=== PATIENT | female | born 1975 | race Caucasian/White ===

== ENCOUNTER 2023-07-12 07:09 | Outpatient (OUT) | payer OTHER, SELFPAY ==
[2023-07-12 07:39] LABS: Basophils Percent Auto 0.3 % (0.2-2.0); Eosinophils Percent Auto 0.2 % (0.9-7.0); Hematocrit 41.4 % (36.0-48.0); Hemoglobin 13.8 g/dL (12.0-16.0); Immature Granulocytes Abs Auto 0.02 10^3/uL (0.00-0.03); Immature Granulocytes Pct Auto 0.3 % (0.0-0.5); Lymphocytes Absolute Auto 0.9 10^3/uL (1.2-3.8); Lymphocytes Percent Auto 13.5 % (20.5-60.0); Mean Corpuscular HGB Conc 33.3 g/dL (29.9-35.2); Mean Corpuscular Hemoglobin 30.8 pg (26.7-34.0); Mean Corpuscular Volume 92.4 fL (81.0-99.0); Mean Platelet Volume 10.5 fL (9.5-13.5); Monocytes Absolute Auto 0.2 10^3/uL (0.3-0.8); Monocytes Percent Auto 2.6 % (1.7-12.0); Neutrophils Absolute Auto 5.4 10^3/uL (1.4-6.5); Neutrophils Percent Auto 83.1 % (43.0-75.0); Platelet Count 265 10^3/uL (150-450); Red Blood Count 4.48 10^6/uL (4.20-5.40); Red Cell Distribution Width 12.2 % (11.0-15.0); White Blood Count 6.5 10^3/uL (4.0-11.0)
[2023-07-12 07:51] LABS: Estimated Average Glucose 103 mg/dL; Glycohemoglobin A1C 5.2 % (4.5-6.2)
[2023-07-12 08:38] LABS: Alanine Aminotransferase 59 U/L (14-59); Albumin Globulin Ratio 1.2; Alkaline Phosphatase 64 U/L (46-116); Anion Gap 14.2; Aspartate Amino Transferase 21 U/L (15-37); BUN Creatinine Ratio 20.7; Bilirubin Total 0.4 mg/dL (0.2-1.0); Calcium 8.9 mg/dL (8.5-10.1); Carbon Dioxide 26.9 mmol/L (21.0-32.0); Chloride 98 mmol/L (98-107); Chol HDL Ratio 4.1; Cholesterol 234 mg/dL (<=200); Estimated GFR (African America >60 (>=60); Estimated GFR (Non-African Ame >60 (>=60); Free T3 2.27 pg/mL (2.18-3.98); Globulin 3.4 g/dL; Glucose 124 mg/dL (74-106); HDL Cholesterol 57 mg/dL (40-60); Potassium 4.1 mmol/L (3.5-5.1); Sodium 135 mmol/L (136-145); Thyroid Stimulating Hormone 0.597 uIU/mL (0.358-3.740); Total Protein 7.4 g/dL (6.4-8.2); Triglycerides 64 mg/dL (<=150); VLDL CHOLESTEROL 12.8 mg/dL
[2023-07-13 12:07] LABS: Insulin 24.8 uIU/mL (2.6-24.9)
== END 2023-07-12 07:10 | disposition home or self-care (01) ==
LOC: LAB 07:15
PROVIDERS: PCP Family Medicine; Visit Provider Family Medicine
DX: Z00.00 Encounter for general adult medical examination without abnormal findings (principal); R73.09 Other abnormal glucose; E78.5 Hyperlipidemia, unspecified
CPT/HCPCS: 36415; 80053; 80061; 83036; 83525; 84436; 84443; 84481; 85025

== ENCOUNTER 2024-06-09 17:29 | Outpatient (OUT) | payer OTHER, SELFPAY ==
--- NOTE | 2024-06-09 | XR_ITS ---
The [address] [address] Patient Name: JOSÉ ZHAO MRN: [id number] date: 1975 Sex: F Assigned Patient Location: [facility] Current Patient Location: Accession/Order Number: [id number] Exam Date: 06/09/2024 17:40 Report Date: 06/10/2024 08:24 At the request of: CHIARA YUN Procedure: XR hip LT 2V w/ pelvis PROCEDURE: XR hip LT 2V w/ pelvis COMPARISON: None. HISTORY: M25.559, HIP PAIN FINDINGS: BONES:No acute fracture or dislocation. Mild bilateral hip osteoarthritis with marginal osteophyte formation SOFT TISSUES:Negative. No visible soft tissue swelling. EFFUSION:None visible. OTHER: Vascular coils left medial abdomen XR/XR hip LT 2V w/ pelvis IMPRESSION: Mild bilateral hip osteoarthritis Electronically authenticated by: LADONNA WATERMAN Date: 06/10/2024 08:24
--- OUTSIDE RECORDS SUMMARY | 2024-06-09 17:33 | XMS_ITS | CCD ---
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 Name Role Phone Chiara Duque MD Primary Care Provider [phone] CHIARA DUQUE Primary Care Unavailable BIANCA GUIDRY Attending Unavailable JAMA, DR GUADARRAMA Admitting Unavailable JAMA, DR GUADARRAMA Attending Unavailable ASHANTIY, DR GUADARRAMA Primary Care Unavailable HOY, DR GUADARRAMA Admitting Unavailable HOY, DR GUADARRAMA Attending Unavailable JAMA, DR GUADARRAMA Primary Care Unavailable JAMA, DR GUADARRAMA Admitting Unavailable JAMA, DR GUADARRAMA Attending Unavailable JAMA, DR GUADARRAMA Primary Care Unavailable HOY, DR GUADARRAMA Consulting Unavailable GENOVEVA WINTERS Attending Unavailable SARA DUQUELAS Sheyla Referring Unavailable Chiara Duque MD Primary Care Provider [phone] CHIARA DUQUE Referring Unavailable HOY, CHIARA M Primary Care Unavailable ZACKARY ELIZABETH Attending Unavailable ZACKARY ELIZABETH Referring Unavailable HOY, CHIARA M Primary Care Unavailable ZACKARY ELIZABETH Attending Unavailable ZACKARY ELIZABETH Referring Unavailable HOY, CHIARA M Primary Care Unavailable DARBY MACIEL Referring Unavailable HOY, CHIARA M Primary Care Unavailable ZACKARY ELIZABETH Attending Unavailable GLENN, ZACKARY M Referring Unavailable HOY, CHIARA M Primary Care Unavailable ZACKARY ELIZABETH Attending Unavailable ZACKARY ELIZABETH Referring Unavailable HOY, CHIARA M Primary Care Unavailable DARBY MACIEL S Referring Unavailable HOY, CHIARA M Primary Care Unavailable Medications Current Medications Medication Drug Class(es) Dates Sig (Normalized) Sig (Original) acetaminophen 325 mg oral tablet (1 source) Start: 07-05-2022 take 2 tablets by mouth every six hours as needed for pain acetaminophen (TYLENOL) 325 MG tablet Take 2 tablets by mouth every 6 hours as needed for Pain 40 tablet 0 07/05/2022 Active cyclobenzaprine hydrochloride 10 mg oral tablet (1 source) Muscle Relaxant Start: 07-05-2022 End: 07-15-2022 take 1 tablet by mouth three times daily as needed for muscle spasms cyclobenzaprine (FLEXERIL) 10 MG tablet Take 1 tablet by mouth 3 times daily as needed for Muscle spasms 21 tablet 0 07/05/2022 07/15/2022 Active diclofenac sodium 75 mg / miSOPROStol 0.2 mg delayed release oral tablet (1 source) Nonsteroidal Anti-inflammatory Drug, Prostaglandin E1 Analog take 1 tablet by mouth twice daily diclofenac-Misoprost ol (ARTHROTEC 75) 75-0.2 MG per tablet Take 1 tablet by mouth 2 times daily 0 Active escitalopram 10 mg oral tablet (1 source) Serotonin Reuptake Inhibitor take 2 tablets by mouth in the morning escitalopram (Lexapro) 10 MG tablet Take 20 mg by mouth in the morning. 0 Active Hyoscyamine (1 source) Hyoscyamine Sulf ate (HYOSCYAMINE PO) Take by mouth daily 0 Active ibuprofen 800 mg oral tablet (1 source) Nonsteroidal Anti-inflammatory Drug Start: 07-05-2022 take 1 tablet by mouth every eight hours as needed for pain ibuprofen (IBU) 800 MG tablet Take 1 tablet by mouth every 8 hours as needed for Pain 21 tablet 0 07/05/2022 Active lisinopril 20 mg oral tablet (1 source) Angiotensin Converting Enzyme Inhibitor take 1 tablet by mouth in the morning lisinopril 20 MG tablet Take 20 mg by mouth in the morning. 0 Active Loratadine (1 source) Loratadine (CLAR ITIN PO) Take by mouth daily 0 Active Multiple Vitamins-Minerals (EMERGEN-C FIVE PO) (1 source) Multiple Vitamins-Minerals (EMERGEN-C FIVE PO) Take by mouth 0 Active Probiotic Product (PROBIOTIC DAILY PO) (1 source) Probiotic Produc t (PROBIOTIC DAILY PO) Take by mouth daily 0 Active Completed/Discontinued Medications Medication Drug Class(es) Dates Sig (Normalized) Sig (Original) iopamidol (ISOVUE-370) 76 % injection 75 mL (1 source) Start: 07-05-2022 End: 07-05-2022 iopamidol (ISOVUE-370) 76 % injection 75 mL Problems Problem Classification Problem Date Documented Da te Episodic/Chronic E Codes: Fall (2 sources) Fall from steps ; Translations: [Fall (on) (from) unspecified stairs and steps, initial encounter] Onset: 07-05-2022 Episodic Nonmalignant breast conditions (2 sources) Solitary cyst of right breast; Translations: [Unspecified lump in the right breast, unspecified quadrant] Onset: 10-02-2023 Episodic Other female genital disorders (1 source) Pelvic congestion syndrome; Translations: [Other specified conditions associated with female genital organs and menstrual cycle] Onset: 09-18-2023 09-18-2023 Episodic Other gastrointestinal disorders (1 source) Irritable bowel syndrome; Translations: [Irritable bowel syndrome without diarrhea] Onset: 09-18-2023 09-18-2023 Chronic Other screening for suspected conditions (not mental disorders or infectious disease) (4 sources) Encounter for screening for malignant neoplasm of vagina; Translations: [Other abnormal and inconclusive findings on diagnostic imaging of breast] Onset: 09-19-2023 Episodic Other upper respiratory infections (1 source) Chronic sinusitis; Translations: [Chronic sinusitis, unspecified] Onset: 09-18-2023 09-18-2023 Chronic Ovarian cyst (2 sources) Cyst of right ovary; Translations: [Unspecified ovarian cyst, right side] Onset: 07-05-2022 Episodic Peripheral and visceral atherosclerosis (1 source) Intermittent 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; Translations: [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 claudication, bilateral legs] Onset: 09-18-2023 09-18-2023 Chronic Superficial injury; contusion (2 sources) Contusion of forehead; Translations: [Contusion of other part of head, initial encounter] Onset: 07-05-2022 Episodic Unclassified (1 source) Annual Exam Onset: 10-27-2023 Results Test Name Value Interpretation Reference Range Facility MAMM DIAGNOSTIC UNILAT RT W CADon 01-13-2024 MAMM DIAGNOSTIC UNILAT RT W CAD MAMM DIAGNOSTIC UNILAT RT W CAD EXAM: MAMM DIAGNOSTIC UNILAT RT W CAD, US BREAST RT LIMITED, 01/13/2024 2:05 PM CLINICAL INDICATIONS: Short-term follow-up right breast masses COMPARISON: Ultrasound and mammogram from 10/14/2023 TECHNIQUE: Supplemental views of the right breast were obtained for diagnostic workup. Digital tomosynthesis images were obtained, with creation of synthetic 2D views. Computer aided detection was utilized. FINDINGS: There are scattered areas of fibroglandular density. A 2 nodular breast masses as seen on prior mammogram appears similar from prior. The more anterior and lateral mass measures roughly 9 mm, similar from prior exam, this is located at a posterior depth roughly 10:00 position. Second nodular mass more posteriorly roughly the level of the nipple posterior depth measures 9 mm as well. Right Breast Ultrasound, Limited FINDINGS: There is a breast cyst measuring 5 x 6 x 3 mm at the 10:00 position 7 cm from the nipple, this corresponds to the more anterior mass. The more posterior mass is not visualized. COMBINED IMPRESSION: Probably benign. Unchanged masses by mammography. The more anterior mass corresponds to a cyst by ultrasound. The more posterior mass is unchanged from prior mammogram however not seen sonographically. Six-month mammogram follow-up recommended BI-RADS: BI-RADS 3 - Probably Benign Recommendation: Repeat diagnostic mammogram in 6 months Patient was given the results before leaving the department. 5 Finalized by Cosmo Rawls MD on 01/13/2024 3:25 PM 3 b MAMM 6 MONTH Normal [facility] US BREAST RT LIMITEDon 01-12 US BREAST RT LIMITED US BREAST RT LIMITED EXAM: MAMM DIAGNOSTIC UNILAT RT W CAD, US BREAST RT LIMITED, 01/13/2024 2:05 PM CLINICAL INDICATIONS: Short-term follow-up right breast masses COMPARISON: Ultrasound and mammogram from 10/14/2023 TECHNIQUE: Supplemental views of the right breast were obtained for diagnostic workup. Digital tomosynthesis images were obtained, with creation of synthetic 2D views. Computer aided detection was utilized. FINDINGS: There are scattered areas of fibroglandular density. A 2 nodular breast masses as seen on prior mammogram appears similar from prior. The more anterior and lateral mass measures roughly 9 mm, similar from prior exam, this is located at a posterior depth roughly 10:00 position. Second nodular mass more posteriorly roughly the level of the nipple posterior depth measures 9 mm as well. Right Breast Ultrasound, Limited FINDINGS: There is a breast cyst measuring 5 x 6 x 3 mm at the 10:00 position 7 cm from the nipple, this corresponds to the more anterior mass. The more posterior mass is not visualized. COMBINED IMPRESSION: Probably benign. Unchanged masses by mammography. The more anterior mass corresponds to a cyst by ultrasound. The more posterior mass is unchanged from prior mammogram however not seen sonographically. Six-month mammogram follow-up recommended BI-RADS: BI-RADS 3 - Probably Benign Recommendation: Repeat diagnostic mammogram in 6 months Patient was given the results before leaving the department. 5 Finalized by Cosmo Rawls MD on 01/13/2024 3:25 PM 3 b MAMM 6 MONTH Normal [facility] Cytologyon 10-27-2023 Cytology Normal [facility] Comment on above: Result Comment: [facility] [address] [place] [address] Gynecologic Cytology Consultation Patient Name:JOSÉ ZHAO:1975 (Age: 48)Gender:FTaken:4Reported:4Physician(s):ALIRIO MACIEL, C.N.M. ([phone])Copy To: Rec. #:[id number]: #[id number] Final Cytologic Interpretation ThinPrep Pap Test (Cervical): Satisfactory for evaluation. A transformation zone component is present. NEGATIVE FOR INTRAEPITHELIAL LESION OR MALIGNANCY. jja/11/05/2023 Interpretation performed at [facility], [address] [place] [address], License number: [id number]. 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 Normal [facility] Comment on above: Performed By: #### 7 1431-1 #### [facility] ([id number]) [address] [place] [address], FIRST [place]LO[address] [place], [place] [id number] [place] [address] LAB ([id number]) [address] [place] [address], [address] [place] [address] Physician Orderon 10-22-2023 Physician Order [id number] Normal [facility] MAMM DIAGNOSTIC UNILAT RT W CADon 10-14-2023 MAMM DIAGNOSTIC UNILAT RT W CAD MAMM DIAGNOSTIC UNILAT RT W CAD EXAM: MAMM DIAGNOSTIC UNILAT RT W CAD, 10/14/2023 2:35 PM CLINICAL INDICATIONS: Mass of right breast, unspecified quadrant; Abnormality of right breast on screening mammogram, COMPARISON: Recent screening study and additional comparison 2018 and 2021 TECHNIQUE: MLO and cc compression views with MLO projection and Tomosynthesis. Targeted ultrasound of the right breast also performed. FINDINGS: There are scattered areas of fibroglandular density. There are 2 partially circumscribed masses in the right breast reproduced on compression. Both reside within the mid to posterior depth of the right breast. Slightly more anterior focus demonstrates sonographic correlate at the 10:00 position and represents a slightly complex cyst 6 mm in greatest dimension 7 cm from the nipple. The more posterior focus does not have sonographic correlate. IMPRESSION: Probable benign complex cysts. One of the 2 sites does not have a ultrasound correlated and 3 follow-up recommended for further characterization. BI-RADS: BI-RADS 3 - Probably Benign Recommendation: Repeat diagnostic mammogram in 3 months Patient was given the results before leaving the department. 5 Finalized by Gera Ibarra DO on 10/14/2023 3:54 PM 3 b MAMM 3 MONTH Normal [facility] US BREAST RT LIMITEDon 10-14 US BREAST RT LIMITED US BREAST RT LIMITED EXAM: US BREAST RT LIMITED, 10/14/2023 3:13 PM CLINICAL INDICATIONS:Mass of right breast, unspecified quadrant; Abnormality of right breast on screening mammogram. COMPARISON: Recent screening study and additional comparison 2018 and 2021 TECHNIQUE: Multiple real-time dalton-scale images of the right breast were performed. Color Doppler was utilized to assess vascular flow. FINDINGS: There are 2 partially circumscribed masses in the right breast reproduced on compression. Both reside within the mid to posterior depth of the right breast. Slightly more anterior focus demonstrates sonographic correlate at the 10:00 position and represents a complex cyst 6 mm in greatest dimension 7 cm from the nipple. The more posterior focus does not have sonographic correlate. IMPRESSION: Probable benign complex cysts. One of the 2 sites does not have a ultrasound correlated and 3 follow-up recommended for further characterization. 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 Computer aided detection was utilized. FINDINGS: There are scattered areas of fibroglandular density. There are no suspicious calcifications, or areas of architectural distortions. There are 2 small masses in the right breast recommend diagnostic mammographic views and ultrasound. IMPRESSION: Right breast: 2 small masses. Recommend diagnostic mammographic views and ultrasound. Left breast: Negative. BI-RADS: BI-RADS 0 - Incomplete. Needs additional imaging evaluation. Recommendation: Additional imaging required. 2 Finalized by Jackie Holden MD on 09/19/2023 4:03 PM 0A b ADDITIONAL I Normal [facility] CT CERVICAL SPINE WO CONTRAS Ton 07-06-2022 CT CERVICAL SPINE WO CONTRAST EXAMINATION: CT OF THE HEAD WITHOUT CONTRAST; CT OF THE CERVICAL SPINE WITHOUT CONTRAST; CT OF THE CHEST, ABDOMEN, AND PELVIS WITH CONTRAST 07/05/2022 9:28 pm TECHNIQUE: CT of the head was performed without the administration of intravenous contrast. Automated exposure control, iterative reconstruction, and/or weight based adjustment of the mA/kV was utilized to reduce the radiation dose to as low as reasonably achievable.; CT of the cervical spine was performed without the administration of intravenous contrast. Multiplanar reformatted images are provided for review. Automated exposure control, iterative reconstruction, and/or weight based adjustment of the mA/kV was utilized to reduce the radiation dose to as low as reasonably achievable.; CT of the chest, abdomen and pelvis was performed with the administration of intravenous contrast. Multiplanar reformatted images are provided for review. Automated exposure control, iterative reconstruction, and/or weight based adjustment of the mA/kV was utilized to reduce the radiation dose to as low as reasonably achievable. COMPARISON: None. HISTORY: ORDERING SYSTEM PROVIDED HISTORY: fall down steps TECHNOLOGIST PROVIDED HISTORY: fall down steps Decision Support Exception - unselect if not a suspected or confirmed emergency medical condition->Emergenc y Medical Condition (MA) Is the patient ?->No FINDINGS: Head CT: There is no acute infarction, intracranial hemorrhage or intracranial mass lesion. No mass effect, midline shift or extra-axial collection is noted. The brain parenchyma is normal. The cerebellar tonsils are in normal position. The ventricles, sulci, and cisterns are within normal limits in size and configuration. The globes and orbits are within normal limits. The visualized extracranial structures including paranasal sinuses and mastoid air cells are unremarkable. No fracture is identified. Central frontal subcutaneous hematoma. Cervical: BONES/ALIGNMENT: There is no acute fracture or traumatic malalignment. DEGENERATIVE CHANGES: Multilevel disc and facet degenerative disease most pronounced at C4-C5 and C6-C7. At C4-C5, posterior osteophytic ridging and central disc protrusion. SOFT TISSUES: There is no prevertebral soft tissue swelling. CT chest: Lines and tubes: None. Lungs and Airways and Pleura: Central airways are patent. Linear ground-glass densities at the bases, likely suggestive of atelectasis. No lung consolidation. No pleural effusion. No pneumothorax. Lymph nodes: No pathologically enlarged mediastinal, hilar, lower cervical, or chest wall lymph nodes. Cardiovascular and Mediastinum: No acute aortic pathology. Cardiac chamber sizes appear to measure within normal limits on this non ECG gated study. No pericardial effusion. The thyroid gland is unremarkable. The esophagus is unremarkable. Bones/Soft tissues: No fracture. No definite suspicious lytic or blastic foci. CT abdomen and pelvis: Organs: 3.1 cm fibroid is arising from uterus. 6.5 x 5.3 cm relatively dense right adnexal cyst. A status post cholecystectomy. The liver, spleen, adrenal glands, pancreas, kidneys and ureters and pelvic organs including the urinary bladder appear unremarkable. Peritoneum / Retroperitoneum: No free air or free fluid is noted. No pathologically enlarged lymphadenopathy. The vasculature do not demonstrate acute abnormality. Multiple coiling materials are noted along the course left gonadal vein. GI Tract: No distention or wall thickening. Bones and Soft Tissues: No fracture. No concerning lytic or sclerotic lesions are noted. IMPRESSION: Head CT: No acute intracranial abnormality. No evidence for acute intracranial hemorrhage, territorial infarction or intracranial mass lesion. Central frontal subcutaneous hematoma. Cervical CT: No acute abnormality of the cervical spine. No fracture. CT of the chest abdomen and pelvis: No acute traumatic injury within the chest abdomen and pelvis. Linear ground-glass densities at the bases likely suggestive of atelectasis. Fibroid uterus. 6.5 cm relatively dense right adnexal cyst. Differential possibilities include endometrioma and hemorrhagic cyst. For further evaluation pelvic ultrasound examination is recommended. Interpreted by: Uvaldo Reddy MD Signed by: Uvaldo Reddy MD 07/05/22 Final result Normal [facility] CT CHEST ABDOMEN PELVIS W CO NTRASTon 07-06-2022 CT CHEST ABDOMEN PELVIS W CONTRAST EXAMINATION: CT OF THE HEAD WITHOUT CONTRAST; CT OF THE CERVICAL SPINE WITHOUT CONTRAST; CT OF THE CHEST, ABDOMEN, AND PELVIS WITH CONTRAST 07/05/2022 9:28 pm TECHNIQUE: CT of the head was performed without the administration of intravenous contrast. Automated exposure control, iterative reconstruction, and/or weight based adjustment of the mA/kV was utilized to reduce the radiation dose to as low as reasonably achievable.; CT of the cervical spine was performed without the administration of intravenous contrast. Multiplanar reformatted images are provided for review. Automated exposure control, iterative reconstruction, and/or weight based adjustment of the mA/kV was utilized to reduce the radiation dose to as low as reasonably achievable.; CT of the chest, abdomen and pelvis was performed with the administration of intravenous contrast. Multiplanar reformatted images are provided for review. Automated exposure control, iterative reconstruction, and/or weight based adjustment of the mA/kV was utilized to reduce the radiation dose to as low as reasonably achievable. COMPARISON: None. HISTORY: ORDERING SYSTEM PROVIDED HISTORY: fall down steps TECHNOLOGIST PROVIDED HISTORY: fall down steps Decision Support Exception - unselect if not a suspected or confirmed emergency medical condition->Emergenc y Medical Condition (MA) Is the patient ?->No FINDINGS: Head CT: There is no acute infarction, intracranial hemorrhage or intracranial mass lesion. No mass effect, midline shift or extra-axial collection is noted. The brain parenchyma is normal. The cerebellar tonsils are in normal position. The ventricles, sulci, and cisterns are within normal limits in size and configuration. The globes and orbits are within normal limits. The visualized extracranial structures including paranasal sinuses and mastoid air cells are unremarkable. No fracture is identified. Central frontal subcutaneous hematoma. Cervical: BONES/ALIGNMENT: There is no acute fracture or traumatic malalignment. DEGENERATIVE CHANGES: Multilevel disc and facet degenerative disease most pronounced at C4-C5 and C6-C7. At C4-C5, posterior osteophytic ridging and central disc protrusion. SOFT TISSUES: There is no prevertebral soft tissue swelling. CT chest: Lines and tubes: None. Lungs and Airways and Pleura: Central airways are patent. Linear ground-glass densities at the bases, likely suggestive of atelectasis. No lung consolidation. No pleural effusion. No pneumothorax. Lymph nodes: No pathologically enlarged mediastinal, hilar, lower cervical, or chest wall lymph nodes. Cardiovascular and Mediastinum: No acute aortic pathology. Cardiac chamber sizes appear to measure within normal limits on this non ECG gated study. No pericardial effusion. The thyroid gland is unremarkable. The esophagus is unremarkable. Bones/Soft tissues: No fracture. No definite suspicious lytic or blastic foci. CT abdomen and pelvis: Organs: 3.1 cm fibroid is arising from uterus. 6.5 x 5.3 cm relatively dense right adnexal cyst. A status post cholecystectomy. The liver, spleen, adrenal glands, pancreas, kidneys and ureters and pelvic organs including the urinary bladder appear unremarkable. Peritoneum / Retroperitoneum: No free air or free fluid is noted. No pathologically enlarged lymphadenopathy. The vasculature do not demonstrate acute abnormality. Multiple coiling materials are noted along the course left gonadal vein. GI Tract: No distention or wall thickening. Bones and Soft Tissues: No fracture. No concerning lytic or sclerotic lesions are noted. IMPRESSION: Head CT: No acute intracranial abnormality. No evidence for acute intracranial hemorrhage, territorial infarction or intracranial mass lesion. Central frontal subcutaneous hematoma. Cervical CT: No acute abnormality of the cervical spine. No fracture. CT of the chest abdomen and pelvis: No acute traumatic injury within the chest abdomen and pelvis. Linear ground-glass densities at the bases likely suggestive of atelectasis. Fibroid uterus. 6.5 cm relatively dense right adnexal cyst. Differential possibilities include endometrioma and hemorrhagic cyst. For further evaluation pelvic ultrasound examination is recommended. Interpreted by: Uvaldo Reddy MD Signed by: Uvaldo Reddy MD 07/05/22 Final result Normal [facility] CT HEAD WO CONTRASTon 2021 CT HEAD WO CONTRAST EXAMINATION: CT OF THE HEAD WITHOUT CONTRAST; CT OF THE CERVICAL SPINE WITHOUT CONTRAST; CT OF THE CHEST, ABDOMEN, AND PELVIS WITH CONTRAST 07/05/2022 9:28 pm TECHNIQUE: CT of the head was performed without the administration of intravenous contrast. Automated exposure control, iterative reconstruction, and/or weight based adjustment of the mA/kV was utilized to reduce the radiation dose to as low as reasonably achievable.; CT of the cervical spine was performed without the administration of intravenous contrast. Multiplanar reformatted images are provided for review. Automated exposure control, iterative reconstruction, and/or weight based adjustment of the mA/kV was utilized to reduce the radiation dose to as low as reasonably achievable.; CT of the chest, abdomen and pelvis was performed with the administration of intravenous contrast. Multiplanar reformatted images are provided for review. Automated exposure control, iterative reconstruction, and/or weight based adjustment of the mA/kV was utilized to reduce the radiation dose to as low as reasonably achievable. COMPARISON: None. HISTORY: ORDERING SYSTEM PROVIDED HISTORY: fall down steps TECHNOLOGIST PROVIDED HISTORY: fall down steps Decision Support Exception - unselect if not a suspected or confirmed emergency medical condition->Emergenc y Medical Condition ([place]) Is the patient ?->No FINDINGS: Head CT: There is no acute infarction, intracranial hemorrhage or intracranial mass lesion. No mass effect, midline shift or extra-axial collection is noted. The brain parenchyma is normal. The cerebellar tonsils are in normal position. The ventricles, sulci, and cisterns are within normal limits in size and configuration. The globes and orbits are within normal limits. The visualized extracranial structures including paranasal sinuses and mastoid air cells are unremarkable. No fracture is identified. Central frontal subcutaneous hematoma. Cervical: BONES/ALIGNMENT: There is no acute fracture or traumatic malalignment. DEGENERATIVE CHANGES: Multilevel disc and facet degenerative disease most pronounced at C4-C5 and C6-C7. At C4-C5, posterior osteophytic ridging and central disc protrusion. SOFT TISSUES: There is no prevertebral soft tissue swelling. CT chest: Lines and tubes: None. Lungs and Airways and Pleura: Central airways are patent. Linear ground-glass densities at the bases, likely suggestive of atelectasis. No lung consolidation. No pleural effusion. No pneumothorax. Lymph nodes: No pathologically enlarged mediastinal, hilar, lower cervical, or chest wall lymph nodes. Cardiovascular and Mediastinum: No acute aortic pathology. Cardiac chamber sizes appear to measure within normal limits on this non ECG gated study. No pericardial effusion. The thyroid gland is unremarkable. The esophagus is unremarkable. Bones/Soft tissues: No fracture. No definite suspicious lytic or blastic foci. CT abdomen and pelvis: Organs: 3.1 cm fibroid is arising from uterus. 6.5 x 5.3 cm relatively dense right adnexal cyst. A status post cholecystectomy. The liver, spleen, adrenal glands, pancreas, kidneys and ureters and pelvic organs including the urinary bladder appear unremarkable. Peritoneum / Retroperitoneum: No free air or free fluid is noted. No pathologically enlarged lymphadenopathy. The vasculature do not demonstrate acute abnormality. Multiple coiling materials are noted along the course left gonadal vein. GI Tract: No distention or wall thickening. Bones and Soft Tissues: No fracture. No concerning lytic or sclerotic lesions are noted. IMPRESSION: Head CT: No acute intracranial abnormality. No evidence for acute intracranial hemorrhage, territorial infarction or intracranial mass lesion. Central frontal subcutaneous hematoma. Cervical CT: No acute abnormality of the cervical spine. No fracture. CT of the chest abdomen and pelvis: No acute traumatic injury within the chest abdomen and pelvis. Linear ground-glass densities at the bases likely suggestive of atelectasis. Fibroid uterus. 6.5 cm relatively dense right adnexal cyst. Differential possibilities include endometrioma and hemorrhagic cyst. For further evaluation pelvic ultrasound examination is recommended. Interpreted by: Uvaldo Reddy MD Signed by: Uvaldo Reddy MD 07/05/22 Final result Normal [facility] Basic Metabolic Panelon 10-2 Anion gap [Moles/Vol] 11 mmol/L 9 - 17 mmol/L [facility] Calcium [Mass/Vol] 8.9 mg/dL 8.6 - 10. 4 mg/dL [facility] Chloride [Moles/Vol] 107 mmol/L 98 - 10 7 mmol/L [facility] CO2 [Moles/Vol] 24 mmol/L 20 - 31 mmol/L [facility] Creatinine [Mass/Vol] 0.71 mg/dL 0.50 - 0.90 mg/dL [facility] GFR/1.73 sq M.predicted MDRD (S/P/Bld) [Vol rate/Area] - PINF [facility] Comment on above: Effective Jun 10, 2022 These results are not intended for use in patients <18 years of age. eGFR results are calculated without a race factor using the 2020 CKD-EPI equation. Careful clinical correlation is recommended, particularly when comparing to results calculated using previous equations. The CKD-EPI equation is less accurate in patients with extremes of muscle mass, extra-renal metabolism of creatine, excessive creatine ingestion, or following therapy that affects renal tubular secretion. Glucose [Mass/Vol] 117 mg/dL High 70 - 99 mg/dL [facility] Interpretation and review of laboratory results Abnormal [facility] Potassium [Moles/Vol] 4.0 mmol/L 3.7 - 5.3 mmol/L [facility] Sodium [Moles/Vol] 142 mmol/L 135 - 144 mmol/L [facility] Urea nitrogen (BldV) [Mass/Vol] 18 mg/dL 6 - 20 mg/dL [facility] Urea nitrogen/Creatinine (Bld) [Mass ratio] 25 High 9 - 20 [facility] Basic Metabolic Profon 07-05 Anion gap [Moles/Vol] 11 mmol/L Normal 9-17 [facility] Comment on above: Performed By: #### B CLARK, CBC #### [facility] [address] [place] [address] [place] [address] Supervisor C[employer] Meats: Mychal Gomez MD BUN/CRE Ratio 25 High 9-20 [facility] Comment on above: Performed By: #### B CLARK, CBC #### [facility] [address] [place] [address] [place] [address] Supervisor [employer]: Mychal Gomez MD Calcium [Mass/Vol] 8.9 mg/dL Normal 8.6-10.4 [facility] Comment on above: Performed By: #### B CLARK, CBC #### [facility] [address] [place] [address] Supervisor [employer]: Mychal Gomez MD Chloride [Moles/Vol] 107 mmol/L Normal 98-[address] [facility] Comment on above: Performed By: #### B MP, CBC #### [facility] [address] [place] [address] Supervisor [employer]: Mychal Gomez MD CO2 [Moles/Vol] 24 mmol/L Normal 20-31 [facility] Comment on above: Performed By: #### B MP, CBC #### [facility] [address] [place] [address] Supervisor C[employer]: Mychal Gomez MD Creatinine [Mass/Vol] 0.71 mg/dL Normal 0.50-0.90 [facility] Comment on above: Performed By: #### B MP, CBC #### [facility] [address] [place] [address] Supervisor C[employer]ats: Mychal Gomez MD GFR/1.73 sq M.predicted among non-blacks MDRD (S/P/Bld) [Vol rate/Area] mL/min/{1.73_m2} Normal >60 [facility] Comment on above: Result Comment: Effective Jun 10, 2022 These results are not intended for use in patients <18 years of age. eGFR results are calculated without a race factor using the 2020 CKD-EPI equation. Careful clinical correlation is recommended, particularly when comparing to results calculated using previous equations. The CKD-EPI equation is less accurate in patients with extremes of muscle mass, extra-renal metabolism of creatine, excessive creatine ingestion, or following therapy that affects renal tubular secretion. Performed By: #### B CLARK, CBC #### [address] [place] [address] Supervisor [employer]: Mychal Gomez MD Glucose [Mass/Vol] 117 mg/dL High 70-99 [facility] Comment on above: Performed By: #### B CLARK, CBC #### [facility] [address] [place] [address] Supervisor C[employer]ats: Mychal Gomez MD Potassium [Moles/Vol] 4.0 mmol/L Normal 3.7-5.3 [facility] Comment on above: Performed By: #### B CLARK, CBC #### [address] [place] [address] Supervisor C[employer]: Mychal Gomez MD Sodium [Moles/Vol] 142 mmol/L Normal 135-144 [facility] Comment on above: Performed By: #### B MP, CBC #### [address] [place] [address] Supervisor C[employer] Meats: Mychal Gomez MD Urea nitrogen [Mass/Vol] 18 mg/dL Normal 6-20 [facility] Comment on above: Performed By: #### B MP, CBC #### [address] [place] [address] Supervisor C[employer] Meats: Mychal Gomez MD CBCon 07-05-2022 Erythrocyte distribution width (RBC) [Ratio] 12.6 % Normal 11.8-14.4 [facility] Comment on above: Performed By: #### B MP, CBC #### [address] [place] [address] Supervisor C[employer] Me[employer]: Mychal Gmoez MD Hematocrit (Bld) [Volume fraction] 41.5 % Normal 36.3-47.1 [facility] Comment on above: Performed By: #### B MP, CBC #### [address] [place] [address] Supervisor [employer]: Mychal Gomez MD Hemoglobin (Bld) [Mass/Vol] 14.1 g/dL Normal 11.9-15.1 [facility] Comment on above: Performed By: #### B MP, CBC #### [address] [place] [address] Supervisor C[employer]: Mychal Gomez MD MCH (RBC) [Entitic mass] 32.0 pg Normal 25.2-33.5 [facility] Comment on above: Performed By: #### B MP, CBC #### [address] [place] [address] Supervisor Cured Meats: Mychal Gomez MD MCHC (RBC) [Mass/Vol] 34.0 g/dL Normal 28.4-34.8 [facility] Comment on above: Performed By: #### B MP, CBC #### [facility] [address] [place], [place] [id number] Supervisor C[employer] Meats: Mychal Gomez MD MCV (RBC) [Entitic vol] 94.3 fL Normal 82.6-102.9 [facility] Comment on above: Performed By: #### B MP, CBC #### [address] [place] [address] Supervisor C[employer]: Mychal Gomez MD NRBC Automated 0.0 per 100 WBC Normal 0.0 [facility] Comment on above: Performed By: #### B MP, CBC #### [address] [place], [place] [id number] Supervisor C[employer] Meats: Mychal Gomez MD Platelet mean volume (Bld) [Entitic vol] 10.4 fL Normal 8.1-13.5 [facility] Comment on above: Performed By: #### B MP, CBC #### [address] [place], [place] [id number] Supervisor C[employer] Me[employer]: Mychal Gomez MD Platelets (Bld) [#/Vol] 173 10*3/uL Normal 138-453 [facility] Comment on above: Performed By: #### B MP, CBC #### [address] [place] [address] Supervisor C[employer] Meats: Mychal Gomez MD RBC (Bld) [#/Vol] 4.40 10*6/uL Normal 3.95-5.11 [facility] Comment on above: Performed By: #### B MP, CBC #### [address] [place] [address] Supervisor C[employer]: Mychal Gomez MD WBC (Bld) [#/Vol] 5.6 10*3/uL Normal 3.5-11.3 [facility] Comment on above: Performed By: #### B MP, CBC #### [address] [place] [address] Supervisor C[employer] Meats: Mychal Gomez MD Hematocrit (Bld) [Volume fraction] 41.5 % 36.3 - 47.1 % [facility] Hemoglobin (Bld) [Mass/Vol] 14.1 g/dL 11.9 - 15.1 g/dL [facility] MCH (RBC) [Entitic mass] 32.0 pg 25.2 - 33.5 pg [facility] MCHC (RBC) [Mass/Vol] 34.0 g/dL 28.4 - 34.8 g/dL [facility] MCV (RBC) [Entitic vol] 94.3 fL 82.6 - 102.9 fL [facility] NRBC Automated 0.0 0.0 per 100 WBC [facility] Platelet distribution width (Bld) [Ratio] 12.6 % 11.8 - 14.4 % [facility] Platelet mean volume (Bld) [Entitic vol] 10.4 fL 8.1 - 13.5 fL [facility] Platelets (Bld) [#/Vol] 173 10*3/uL [facility] RBC (Bld) [#/Vol] 4.40 10*6/uL 3.95 - 5.1 1 m/uL [facility] WBC (Bld) [#/Vol] 5.6 10*3/uL [facility] CT CERVICAL SPINE WO CONTRAS Ton 07-05-2022 Radiology Study observation (narrative) [facility] Work Phone: CT CHEST ABDOMEN PELVIS W CO NTRAST Additional Contrast? Noneon 07-05-2022 Radiology Study observation (narrative) [facility] Work Phone: CT Head WO Contraston 2021 Radiology Study observation (narrative) [facility] Work Phone: Ethanolon 07-05-2022 Ethanol [Mass/Vol] 233 mg/dL High NINF - 10 mg/dL [facility] Ethanol percent 0.233 % High NINF - 0.010 % [facility] Interpretation and review of laboratory results Abnormal [facility] Ethanol Alcoholon 07-05-2022 Ethanol [Mass/Vol] 233 mg/dL High <10 [facility] Comment on above: Performed By: #### A LCB #### [facility] [address] [place] [address] Supervisor C[employer] Meats: Mychal Gomez MD Ethanol percent 0.233 % High <0.010 [facility] Comment on above: Performed By: #### A LCB #### [facility] [address] [place] [address] Supervisor Cured Meats: Mychal Gomez MD No Panel Informationon 07-[address]: No acute intracranial abnormality. No evidence for acute intracranial hemorrhage, territorial infarction or intracranial mass lesion. Central frontal subcutaneous hematoma. Cervical CT: No acute abnormality of the cervical spine. No fracture. CT of the chest abdomen and pelvis: No acute traumatic injury within the chest abdomen and pelvis. Linear ground-glass densities at the bases likely suggestive of atelectasis. Fibroid uterus. 6.5 cm relatively dense right adnexal cyst. Differential possibilities include endometrioma and hemorrhagic cyst. For further evaluation pelvic ultrasound examination is recommended. [facility] EXAMINATION: CT OF THE HEAD WITHOUT CONTRAST; CT OF THE CERVICAL SPINE WITHOUT CONTRAST; CT OF THE CHEST, ABDOMEN, AND PELVIS WITH CONTRAST 07/05/2022 9:28 pm TECHNIQUE: CT of the head was performed without the administration of intravenous contrast. Automated exposure control, iterative reconstruction, and/or weight based adjustment of the mA/kV was utilized to reduce the radiation dose to as low as reasonably achievable.; CT of the cervical spine was performed without the administration of intravenous contrast. Multiplanar reformatted images are provided for review. Automated exposure control, iterative reconstruction, and/or weight based adjustment of the mA/kV was utilized to reduce the radiation dose to as low as reasonably achievable.; CT of the chest, abdomen and pelvis was performed with the administration of intravenous contrast. Multiplanar reformatted images are provided for review. Automated exposure control, iterative reconstruction, and/or weight based adjustment of the mA/kV was utilized to reduce the radiation dose to as low as reasonably achievable. COMPARISON: None. HISTORY: ORDERING SYSTEM PROVIDED HISTORY: fall down steps TECHNOLOGIST PROVIDED HISTORY: fall down steps Decision Support Exception - unselect if not a suspected or confirmed emergency medical condition->Emergenc y Medical Condition ([place]) Is the patient ?->No FINDINGS: Head CT: There is no acute infarction, intracranial hemorrhage or intracranial mass lesion. No mass effect, midline shift or extra-axial collection is noted. The brain parenchyma is normal. The cerebellar tonsils are in normal position. The ventricles, sulci, and cisterns are within normal limits in size and configuration. The globes and orbits are within normal limits. The visualized extracranial structures including paranasal sinuses and mastoid air cells are unremarkable. No fracture is identified. Central frontal subcutaneous hematoma. Cervical: BONES/ALIGNMENT: There is no acute fracture or traumatic malalignment. DEGENERATIVE CHANGES: Multilevel disc and facet degenerative disease most pronounced at C4-C5 and C6-C7. At C4-C5, posterior osteophytic ridging and central disc protrusion. SOFT TISSUES: There is no prevertebral soft tissue swelling. CT chest: Lines and tubes: None. Lungs and Airways and Pleura: Central airways are patent. Linear ground-glass densities at the bases, likely suggestive of atelectasis. No lung consolidation. No pleural effusion. No pneumothorax. Lymph nodes: No pathologically enlarged mediastinal, hilar, lower cervical, or chest wall lymph nodes. Cardiovascular and Mediastinum: No acute aortic pathology. Cardiac chamber sizes appear to measure within normal limits on this non ECG gated study. No pericardial effusion. The thyroid gland is unremarkable. The esophagus is unremarkable. Bones/Soft tissues: No fracture. No definite suspicious lytic or blastic foci. CT abdomen and pelvis: Organs: 3.1 cm fibroid is arising from uterus. 6.5 x 5.3 cm relatively dense right adnexal cyst. A status post cholecystectomy. The liver, spleen, adrenal glands, pancreas, kidneys and ureters and pelvic organs including the urinary bladder appear unremarkable. Peritoneum / Retroperitoneum: No free air or free fluid is noted. No pathologically enlarged lymphadenopathy. The vasculature do not demonstrate acute abnormality. Multiple coiling materials are noted along the course left gonadal vein. GI Tract: No distention or wall thickening. Bones and Soft Tissues: No fracture. No concerning lytic or sclerotic lesions are noted. [facility] Uvaldo Reddy MD - 07/05/2022 EXAMINATION: CT OF THE HEAD WITHOUT CONTRAST; CT OF THE CERVICAL SPINE WITHOUT CONTRAST; CT OF THE CHEST, ABDOMEN, AND PELVIS WITH CONTRAST 07/05/2022 9:28 pm TECHNIQUE: CT of the head was performed without the administration of intravenous contrast. Automated exposure control, iterative reconstruction, and/or weight based adjustment of the mA/kV was utilized to reduce the radiation dose to as low as reasonably achievable.; CT of the cervical spine was performed without the administration of intravenous contrast. Multiplanar reformatted images are provided for review. Automated exposure control, iterative reconstruction, and/or weight based adjustment of the mA/kV was utilized to reduce the radiation dose to as low as reasonably achievable.; CT of the chest, abdomen and pelvis was performed with the administration of intravenous contrast. Multiplanar reformatted images are provided for review. Automated exposure control, iterative reconstruction, and/or weight based adjustment of the mA/kV was utilized to reduce the radiation dose to as low as reasonably achievable. COMPARISON: None. HISTORY: ORDERING SYSTEM PROVIDED HISTORY: fall down steps TECHNOLOGIST PROVIDED HISTORY: fall down steps Decision Support Exception - unselect if not a suspected or confirmed emergency medical condition->Emergenc y Medical Condition ([place]) Is the patient ?->No FINDINGS: Head CT: There is no acute infarction, intracranial hemorrhage or intracranial mass lesion. No mass effect, midline shift or extra-axial collection is noted. The brain parenchyma is normal. The cerebellar tonsils are in normal position. The ventricles, sulci, and cisterns are within normal limits in size and configuration. The globes and orbits are within normal limits. The visualized extracranial structures including paranasal sinuses and mastoid air cells are unremarkable. No fracture is identified. Central frontal subcutaneous hematoma. Cervical: BONES/ALIGNMENT: There is no acute fracture or traumatic malalignment. DEGENERATIVE CHANGES: Multilevel disc and facet degenerative disease most pronounced at C4-C5 and C6-C7. At C4-C5, posterior osteophytic ridging and central disc protrusion. SOFT TISSUES: There is no prevertebral soft tissue swelling. CT chest: Lines and tubes: None. Lungs and Airways and Pleura: Central airways are patent. Linear ground-glass densities at the bases, likely suggestive of atelectasis. No lung consolidation. No pleural effusion. No pneumothorax. Lymph nodes: No pathologically enlarged mediastinal, hilar, lower cervical, or chest wall lymph nodes. Cardiovascular and Mediastinum: No acute aortic pathology. Cardiac chamber sizes appear to measure within normal limits on this non ECG gated study. No pericardial effusion. The thyroid gland is unremarkable. The esophagus is unremarkable. Bones/Soft tissues: No fracture. No definite suspicious lytic or blastic foci. CT abdomen and pelvis: Organs: 3.1 cm fibroid is arising from uterus. 6.5 x 5.3 cm relatively dense right adnexal cyst. A status post cholecystectomy. The liver, spleen, adrenal glands, pancreas, kidneys and ureters and pelvic organs including the urinary bladder appear unremarkable. Peritoneum / Retroperitoneum: No free air or free fluid is noted. No pathologically enlarged lymphadenopathy. The vasculature do not demonstrate acute abnormality. Multiple coiling materials are noted along the course left gonadal vein. GI Tract: No distention or wall thickening. Bones and Soft Tissues: No fracture. No concerning lytic or sclerotic lesions are noted. IMPRESSION: Head CT: No acute intracranial abnormality. No evidence for acute intracranial hemorrhage, territorial infarction or intracranial mass lesion. Central frontal subcutaneous hematoma. Cervical CT: No acute abnormality of the cervical spine. No fracture. CT of the chest abdomen and pelvis: No acute traumatic injury within the chest abdomen and pelvis. Linear ground-glass densities at the bases likely suggestive of atelectasis. Fibroid uterus. 6.5 cm relatively dense right adnexal cyst. Differential possibilities include endometrioma and hemorrhagic cyst. For further evaluation pelvic ultrasound examination is recommended. [facility] [employer] Work Phone: No Panel InformationOrdered By: Uvaldo Reddy on 07-05-2022 [facility] [employer] Work Phone: CBC AUTO DIFFon 09-15-2021 BASO # 0.0 103/ul Normal 0.0-0.1 [facility] Comment on above: Performed By: #### C BC #### [facility] [address] [place] [id number] Lakshmi Galvez Basophils/100 WBC (Bld) 1.0 % Normal 0.2-2.0 [facility] Comment on above: Performed By: #### C BC #### [facility] [address] [place] [address] Lakshmi Galvez EO # 0.2 103/ul Normal 0.0-0.7 [facility] Comment on above: Performed By: #### C BC #### [facility] [address] [place] [address] Dr. Lakshmi Galvez Eosinophils/100 WBC (Bld) 3.9 % Normal 0.9-7.0 [facility] Comment on above: Performed By: #### C BC #### [facility] [address] [place] [address] Dr. Lakshmi Galvez Erythrocyte distribution width (RBC) [Ratio] 12.4 % Normal 11.0-15.0 [facility] Comment on above: Performed By: #### C BC #### [facility] [address] [place] [address] Dr. Lakshmi Galvez Hematocrit (Bld) [Volume fraction] 41.5 % Normal 36.0-48.0 [facility] Comment on above: Performed By: #### C BC #### [facility] [address] [place] [address] Dr. Lakshmi Galvez Hemoglobin (Bld) [Mass/Vol] 13.9 g/dL Normal 12.0-16.0 [facility] Comment on above: Performed By: #### C BC #### [facility] [address] [place] [address] Dr. Lakshmi Galvez IG # 0.01 10e3/ul Normal 0.00-0.03 [facility] Comment on above: Performed By: #### C BC #### [facility] [address] [place] [address] Dr. Lakshmi Galvez IG % 0.2 % Normal 0.0-0.5 [facility] Comment on above: Performed By: #### C BC #### [facility] [address] [place] [address] Dr. Lakshmi Galvez LYMPH # 1.5 103/ul Normal 1.2-3.8 [facility] Comment on above: Performed By: #### C BC #### [facility] [address] [place] [address] Dr. Lakshmi Galvez Lymphocytes/100 WBC (Bld) 36.6 % Normal 20.5-60.0 [facility] Comment on above: Performed By: #### C BC #### [facility] [address] [place] [address] Dr. Lakshmi Galvez MANUAL DIFF REQ NO Normal [facility] Comment on above: Performed By: #### C BC #### [facility] [address] [place] [address] Dr. Lakshmi Galvez MCH (RBC) [Entitic mass] 31.2 pg Normal 26.7-34.0 [facility] Comment on above: Performed By: #### C BC #### [facility] [address] [place] [address] Dr. Lakshmi Galvez MCHC (RBC) [Mass/Vol] 33.5 g/dL Normal 29.9-35.2 [facility] Comment on above: Performed By: #### C BC #### [facility] [address] [place] [address] Dr. Lakshmi Galvez MCV (RBC) [Entitic vol] 93.0 fL Normal 81.0-99.0 [facility] Comment on above: Performed By: #### C BC #### [facility] [address] [place] [address] Dr. Lakshmi Galvez MONO # 0.4 103/ul Normal 0.3-0.8 [facility] Comment on above: Performed By: #### C BC #### [facility] [address] [place] [address] Dr. Lakshmi Galvez Monocytes/100 WBC (Bld) 9.0 % Normal 1.7-12.0 [facility] Comment on above: Performed By: #### C BC #### [facility] [address] [place] [address] Dr. Lakshmi Galvez NEUT # 2.0 103/ul Normal 1.4-6.5 [facility] Comment on above: Performed By: #### C BC #### [facility] [address] [place] [address] Dr. Lakshmi Galvez Neutrophils/100 WBC (Bld) 49.3 % Normal 43.0-75.0 [facility] Comment on above: Performed By: #### C BC #### [facility] [address] [address] [address] Lakshmi Galvez Platelet mean volume (Bld) [Entitic vol] 10.5 fL Normal 9.5-13.5 [facility] Comment on above: Performed By: #### C BC #### [facility] [address] [address] [address] Lakshmi Galvez PLT 202 103/ul Normal 150-450 [facility] Comment on above: Performed By: #### C BC #### [facility] [address] [place] [address] Dr. Lakshmi Galvez RBC 4.46 106/ul Normal 4.20-5.40 [facility] Comment on above: Performed By: #### C BC #### [facility] [address] [place] [address] Dr. Lakshmi Galvez WBC 4.1 103/ul Normal 4.0-11.0 [facility] Comment on above: Performed By: #### C BC #### [facility] [address] [place] [address] Dr. Lakshmi Gavlez FREE THYROXINE INDEX T7on FTI 2.28 Normal [facility] Comment on above: Performed By: #### L IPID, CMP, T7, TSH #### [facility] [address] [place] [address] Dr. Lakshmi Galvez T3U 35.0 % Normal 23.5-40.5 [facility] Comment on above: Performed By: #### L IPID, CMP, T7, TSH #### [facility] [address] [address] [address] Lakshmi Galvez T4 [Mass/Vol] 6.50 ug/dL Normal 5.53-11.00 [facility] Comment on above: Performed By: #### L IPID, CMP, T7, TSH #### [facility] [address] [address] [address] Lakshmi Galvez GLYCOHEMOGLOBIN A1Con 2021 ADA RECOMMENDATION ADA THERAPEUTIC TARGET 6.0 - 7.0 ACTION SUGGESTED > 7.0 Normal [facility] Comment on above: Performed By: #### A 1C #### [facility] [address] [place], [place] [address] Dr. Lakshmi Galvez Glucose [Mass/Vol] 111 mg/dL Normal [facility] Comment on above: Performed By: #### A 1C #### [facility] [id number] Lakshmi Galvez HbA1c (Bld) [Mass fraction] 5.5 % Normal <=6.0 [facility] Comment on above: Performed By: #### A 1C #### [facility] [address] [address] [address] Lakshmi Galvez LIPID PROFILEon 09-15-2021 CHOL-HDL RATIO NORM SEE BELOW Normal [facility] Comment on above: Result Comment: 3.3 - 4.4 LOW RISK 4.4 - 7.1 AVERAGE RISK 7.1 - 11.0 MODERATE RISK >11.0 HIGH RISK Performed By: #### L IPID, CMP, T7, TSH #### [facility] [address] [place], [place] [address] Dr. Lakshmi Galvez Cholesterol [Mass/Vol] 237 mg/dL Critically high <=200 [facility] Comment on above: Performed By: #### L IPID, CMP, T7, TSH #### [facility] [address] [place], [place] [address] Dr. Lakshmi Galvez Cholesterol in HDL [Mass/Vol] 50 mg/dL Normal [facility] Comment on above: Performed By: #### L IPID, CMP, T7, TSH #### [facility] [address] [place], [place] [address] Dr. Lakshmi Galvez Cholesterol in LDL [Mass/Vol] 144.8 mg/dL Normal [facility] Comment on above: Performed By: #### L IPID, CMP, T7, TSH #### [facility] [address] [place], [place] [address] Dr. Lakshmi Galvez Cholesterol.total/Chol esterol in HDL [Mass ratio] 4.7 {ratio} Normal [facility] Comment on above: Performed By: #### L IPID, CMP, T7, TSH #### [facility] [address] [address] [address] Lakshmi Galvez HDL NORMAL > or = 60 mg/dl - LOW CARDIOVASCULAR RISK <40 mg/dl - HIGH CARDIOVASCULAR RISK Normal [facility] Comment on above: Performed By: #### L IPID, CMP, T7, TSH #### [facility] [address] [address] [address] Lakshmi Galvez LDL CALC NORMAL SEE BELOW Normal [facility] Comment on above: Result Comment: <100 mg/dl OPTIMAL 100 - 129 mg/dl NEAR OR ABOVE OPTIMAL 130 - 159 mg/dl BORDERLINE HIGH 160 - 189 mg/dl HIGH >190 mg/dl VERY HIGH Performed By: #### L IPID, CMP, T7, TSH #### [facility] [address] [address] [address] Lakshmi Galvez Triglyceride [Mass/Vol] 211 mg/dL Critically high <=150 [facility] Comment on above: Performed By: #### L IPID, CMP, T7, TSH #### [facility] [address] [address] [address] Lakshmi Galvez VLDL CALC 42.2 mg/dL Normal [facility] Comment on above: Performed By: #### L IPID, CMP, T7, TSH #### [facility] [address] [address] [address] Lakshmi Galvez PROF 14(COMP METB)on 022 Albumin [Mass/Vol] 3.9 g/dL Normal 3.5-5.0 [facility] Comment on above: Performed By: #### L IPID, CMP, T7, TSH #### [facility] [address] [address] [address] Lakshmi Galvez Albumin/Globulin [Mass ratio] 1.1 {ratio} Normal [facility] Comment on above: Performed By: #### L IPID, CMP, T7, TSH #### [facility] [address] [address] [address] Lakshmi Galvez ALP [Catalytic activity/Vol] 55 U/L Normal 38-126 [facility] Comment on above: Performed By: #### L IPID, CMP, T7, TSH #### [facility] [address] [place] [address] Dr. Lakshmi Galvez ALT [Catalytic activity/Vol] 53 U/L Critically high 9-52 [facility] Comment on above: Performed By: #### L IPID, CMP, T7, TSH #### [facility] [address] [place] [address] Dr. Lakshmi Galvez Anion gap [Moles/Vol] 13.0 mmol/L Normal [facility] Comment on above: Performed By: #### L IPID, CMP, T7, TSH #### [facility] [address] [place] [address] Dr. Lakshmi Galvez AST [Catalytic activity/Vol] 23 U/L Normal 14-36 [facility] Comment on above: Performed By: #### L IPID, CMP, T7, TSH #### [facility] [address] [place] [address] Dr. Lakshmi Galvez Bilirubin [Mass/Vol] 0.5 mg/dL Normal 0.2-1.3 [facility] Comment on above: Performed By: #### L IPID, CMP, T7, TSH #### [facility] [address] [place] [address] Dr. Lakshmi Galvez Calcium [Mass/Vol] 8.8 mg/dL Normal 8.4-10.2 [facility] Comment on above: Performed By: #### L IPID, CMP, T7, TSH #### [facility] [address] [place] [address] Dr. Lakshmi Glavez Chloride [Moles/Vol] 101 mmol/L Normal 98-107 [facility] Comment on above: Performed By: #### L IPID, CMP, T7, TSH #### [facility] [address] [place] [address] Dr. Lakshmi Galvez CO2 [Moles/Vol] 26.9 mmol/L Normal 22.0-30.0 [facility] Comment on above: Performed By: #### L IPID, CMP, T7, TSH #### [facility] [address] [address] [address] Lakshmi Galvze Creatinine [Mass/Vol] 0.65 mg/dL Normal 0.52-1.04 [facility] Comment on above: Performed By: #### L IPID, CMP, T7, TSH #### [facility] [address] [address] [address] Lakshmi Galvez EGFR-AF POLISH >60 Normal >=60 [facility] Comment on above: Performed By: #### L IPID, CMP, T7, TSH #### [facility] [address] [address] [address] Lakshmi Galvez EGFR-NON AF POLISH >60 Normal >=60 [facility] Comment on above: Performed By: #### L IPID, CMP, T7, TSH #### [facility] [address] [place] [address] Dr. Lakshmi Galvez Globulin (S) [Mass/Vol] 3.4 g/dL Normal [facility] Comment on above: Performed By: #### L IPID, CMP, T7, TSH #### [facility] [address] [address] [address] Lakshmi Galvez Glucose [Mass/Vol] 108 mg/dL Critically high 74-106 [facility] Comment on above: Performed By: #### L IPID, CMP, T7, TSH #### [facility] [address] [address] [address] Lakshmi Galvez Potassium [Moles/Vol] 3.9 mmol/L Normal 3.4-5.0 [facility] Comment on above: Performed By: #### L IPID, CMP, T7, TSH #### [facility] [address] [address] [address] Lakshmi Galvez Protein [Mass/Vol] 7.3 g/dL Normal 6.1-8.2 [facility] Comment on above: Performed By: #### L IPID, CMP, T7, TSH #### [facility] [address] [address] [address] Lakshmi Galvez Sodium [Moles/Vol] 137 mmol/L Normal 137-145 [facility] Comment on above: Performed By: #### L IPID, CMP, T7, TSH #### [facility] [address] [place] [address] Dr. Lakshmi Galvez Urea nitrogen [Mass/Vol] 11.0 mg/dL Normal 7.0-17.0 [facility] Comment on above: Performed By: #### L IPID, CMP, T7, TSH #### [facility] [address] [place] [address] Dr. Lakshmi Galvez Urea nitrogen/Creatinine [Mass ratio] 16.9 mg/mg Normal [facility] Comment on above: Performed By: #### L IPID, CMP, T7, TSH #### [facility] [address] [place] [address] Dr. Lakshmi Galvez TSHon 09-15-2021 TSH 3.650 uIU/mL Normal 0.470-4.680 [facility] Comment on above: Performed By: #### L IPID, CMP, T7, TSH #### [facility] [address] [place] [address] Dr. Lakshmi Galvez TSH RANGE SEE BELOW Normal [facility] Comment on above: Result Comment: <0.3 4 UIU/ml HYPERTHYROID 0.34-5.60 UIU/ml EUTHYROID >5.60 UIU/ml HYPOTHYROID Performed By: #### L IPID, CMP, T7, TSH #### [facility] [address] [place] [address] Dr. Lakshmi Galvez Vital Signs Date Time Vital Sign Value Performing Clinician Jaretti lity 07-05-2022 20:12-040 Body height 170.2 cm Bianca Guidry DO Work Phone: [facility] 07-05-2022 20:12-0400 Body mass index (BMI) [Ratio] 28.82 kg/m2 Bianca Guidry DO Work Phone: [facility] 07-05-2022 20:12-0400 Body weight 83.46 kg Bianca Guidry DO Work Phone: [facility] 07-05-2022 20:02-0400 Body temperature 97.59 [degF] Bianca Guidry DO Work Phone: [facility] 07-05-2022 20:02-0400 Diastolic blood pressure 68 mm[Hg] Bianca Guidry DO Work Phone: [facility] 07-05-2022 20:02-0400 Heart rate 79 /min Bianca Guidry DO Work Phone: [facility] 07-05-2022 20:02-0400 Respiratory rate 18 /min Bianca Guidry DO Work Phone: [facility] 07-05-2022 20:02-0400 SaO2% (BldA) [Mass fraction] 93 % Bianca Guidry DO Work Phone: [facility] 07-05-2022 20:02-0400 Systolic blood pressure 126 mm[Hg] Bianca Guidry DO Work Phone: [facility] Encounters Encounter Date Encounter Type Care Provider Facility Start: 01-13-2024 End: 01-14-2024 ambulatory [facility] Start: 10-27-2023 End: 10-27-2023 ambulatory [facility] Start: 10-27-2023 Encounter for gynecological examination (general) (routine) without abnormal findings [facility] Start: 10-27-2023 End: 10-28-2023 ambulatory [facility] Start: 10-16-2023 Telephone encounter Bonnie Omalley RN Work Phone: [facility] Start: 10-14-2023 End: 10-15-2023 ambulatory [facility] Start: 09-23-2023 End: 09-23-2023 ambulatory GENOVEVA H SINGH Not Available Start: 09-19-2023 End: 09-20-2023 ambulatory [facility] Start: 09-19-2023 Encounter for gynecological examination (general) (routine) without abnormal findings [facility] Start: 07-20-[address] CHIARA DUQUE Facility :[facility] Start: 07-05-2022 End: 07-06-2022 Emergency department patient visit CHIARA [facility] Start: 07-05-2022 End: 07-05-2022 Emergency department patient visit Bianca Guidry DO Work Phone: [facility] Comment on above: Fall from steps, ini tial encounter (Primary Dx); Cyst of right ovary; Contusion of forehead, initial encounter Start: 10-12-[address] CHIARA DUQUE Facility :[facility] Start: 09-20-2021 Encounter for genera l adult medical examination without abnormal findings DR CHIARA DUQUE [facility] Start: 09-15-2021 End: 09-16-[address] CHIARA DUQUE Facility:[facility] Start: 09-15-2021 End: 09-16-2021 Encounter for general adult medical examination without abnormal findings DR CHIARA DUQUE Facility:[facility] Procedures Date Procedure Procedure Detail Performing Clinician Start: 09-19-2023 Mammography Bonnie Omalley RN Work Phone: Start: 07-05-2022 Ct head/brain w/o co ntrast material Bianca Guidry DO Work Phone: Start: 07-05-2022 Ct cervical spine w/ o contrast material Bianca Guidry DO Work Phone: Start: 07-05-2022 Ct thorax w/contrast material Bianca Guidry DO Work Phone: Start: 07-05-2022 Assay of ethanol Elliott Guidry DO Work Phone: Start: 07-05-2022 Basic metabolic pane l calcium total Bianca Guidry DO Work Phone: Plan of Treatment Date Care Activity Detail Author Start: 09-19-2024 Screening for malignant neoplasm of breast Mammogram [facility] Start: 08-20-2022 End: 08-20-2022 Patient encounter procedure 08/20/2022 Office Visit Gastroenterology Tad, Caryn N, MD [address] [place] [address] [place] [address] [facility] Start: 04-08-2022 Influenza vaccination Flu vaccine (#1) [facility] Start: 08-28-2021 COVID-19 Vaccine (4 - Booster for Pfizer series) COVID-19 Vaccine (4 - Booster for Pfizer series) [facility] Start: 2018 Screening for malignant neoplasm of colon [facility] Start: 2013 Lipid panel Lipids [facility] Start: 2008 Diabetes screen Diabetes screen [facility] Start: 2003 Screening for malignant neoplasm of cervix [facility] Start: 1994 Screening for malignant neoplasm of cervix Pap smear [facility] Start: 1992 DTaP/Tdap/Td vaccine (1 - Tdap) DTaP/Tdap/Td vaccine (1 - Tdap) [facility] Start: 1991 Hepatitis C screening Hepatitis C screen [facility] Start: 1988 HIV screening HIV screen [facility] Start: 1985 Depression Screen Depression Screen [facility] Start: 1973 Screening for malignant neoplasm of colon [facility] Immunizations Immunization Date Immunization Notes Care Provider Fa cility 2023 Influenza, injectabl e, Madin Swati Canine Kidney, preservative free, quadrivalent Bonnie Shahram RN Work Phone: [facility] 2023 zoster vaccine recombinant Bonnie Nolanz RN Work Phone: [facility] Payers Date Payer Category Payer Unknown [employer] [id number] 2023-Present [address] [place] [address] [id number] 1973 Unknown [id number] 1973 Unknown [id number] 1973 Unknown [id number] 1973 Unknown [id number] 1973 Unknown [id number] 1973 Unknown [id number] 1973 Unknown [id number] 1973 Unknown [id number] 1973 Unknown [id number] 1973 Unknown [id number] 1973 Unknown [id number] 1973 Unknown [id number] 1959 Self-pay 1961 Unknown [id number] Social History Date Type Detail Facility Start: 03-26-2018 End: 09-23-2023 Tobacco smoking status VTIS Ex-smoker [facility] Phone: Start: 03-17-1989 End: 05-18-2001 History of tobacco use Current smoker [facility] Phone: Start: 03-26-2018 End: 09-23-2023 Tobacco use and exposure Smokeless tobacco non-user [facility] Phone: Start: 05-15-2018 End: 09-23-2023 Alcohol intake Current drinker of alcohol (finding) [facility] Phone: Start: 03-26-2018 Alcohol Comment occassionally [facility] Phone: Start: 1975 Sex Assigned At Not on file [facility] Phone: Start: 06-25-2022 End: 07-05-2022 Exposure to SARS-CoV-2 (event) Not sure [employer] [facility] Start: 03-17-1989 End: 05-18-2001 History of tobacco use Cigarette Smoker [facility] Start: 09-23-2023 Cigarettes smoked current (pack per day) - Reported 0.5 [facility] Start: 09-23-2023 Tobacco use panel [facility] Telephone encounter Note 10-16-2023 Telephone Encounter - Genoveva Winters MD - 10/16/2023 1:34 PM EST Note Date & Type Note Facility 10-16-2023 Telephone encounter Note ok [facility] Work Phone: Note 10-16-2023 Telephone Encounter - Genoveva Winters MD - 10/16/2023 1:34 PM ESTTelephone Encounter - Bonnie Omalley RN - 10/16/2023 8:31 AM EST Note Date & Type Note Facility 10-16-2023 Miscellaneous Notes Formattin g of this note might be different from the original. ok TC from pt. States her s/s have completely cleared and she does not wish to proceed with CT at this time. States she will call us in future if s/s return. Dr. Winters notified. Follow up appt for 10/22 canceled. Hospital notified. documented in this encounter [facility] Telephone encounter Note 10-16-2023 Telephone Encounter - Bonnie Omalley RN - 10/16/2023 8:31 AM EST Note Date & Type Note Facility 10-16-2023 Telephone encount er Note TC from pt. States her s/s have completely cleared and she does not wish to proceed with CT at this time. States she will call us in future if s/s return. Dr. Winters notified. Follow up appt for 10/22 canceled. Hospital notified. [facility] Discharge instructions 07-05-2022 Discharge Instructions Note Date & Type Note Facility 07-05-2022 Hospital Discharg e instructions Bianca Guidry DO - 07/05/2022 11:01 PM EDT Follow-up with your FRONT OFFICE ASSISTANT regarding your right ovarian cyst. You will wake up tomorrow in significant pain. Please use pain medication as prescribed to help with your discomfort, please take muscle relaxant to help also with your discomfort okay to apply ice to areas of pain and swelling, and a use your incentive spirometer to help with inhalation and exhalation. Please use this every hour throughout the day. Return to ER for worsening pain shortness of breath difficulty breathing, numbness, tingling or weakness. documented in this encounter [facility]: Evaluation note Note Date & Type Note Facility Evaluation note Diagnosis Fall from steps, initial encounter- Primary Cyst of right ovary Other and unspecified ovarian cyst Contusion of forehead, initial encounter documented in this encounter [facility]: Summary Purpose Family History No Family History Records FoundNo Family History Records FoundNo Family History Records FoundNo Family History Records FoundNo Family History Records FoundNo Family History Records Found Advance Directives No Advanced Directives Records FoundNo Advanced Directives Records FoundNo Advanced Directives Records FoundNo Advanced Directives Records FoundNo Advanced Directives Records FoundNo Advanced Directives Records Found Additional Source Comments Reason for Visit (unrecogniz ed section and content) Reason Comments Fall Rib Injury Head Injury Patient fell forward down a flight of stairs just prior to arrival. Hit head on ground. Left side rib pain. Ordered Prescriptions (unrec ognized section and content) Prescription Sig Dispensed Refills Start Date End Da te ibuprofen (IBU) 800 MG tablet Take 1 tablet by mouth every 8 hours as needed for Pain 21 tablet 0 07/05/2022 acetaminophen (TYLENOL) 325 MG tablet Take 2 tablets by mouth every 6 hours as needed for Pain 40 tablet 0 07/05/2022 cyclobenzaprine (FLEXERIL) 10 MG tablet Take 1 tablet by mouth 3 times daily as needed for Muscle spasms 21 tablet 0 07/05/2022 07/15/2022 PRN Active and Recently Administ ered Medications (unrecognized section and content) Medication Order 07/03/2022 07/04/2022 07/05/2022 iopamidol (ISOVUE-370) 76 % injection 75 mL (COMPLETED) 75 mL, IntraVENous, IMG ONCE PRN, 1 dose, Starting on Fri07/05/22 at 2123, Until Fri07/05/22 at 212, Other 2125 (Given - Provid er: Shae Richardson) Care Teams (unrecognized sec tion and content) Inside Sales Territory Manager Relationship Specialty Start Date End Date Chiara Duque MD [address], [place] [id number] [phone] PCP - General 09/27/15 Inside Sales Territory Manager Relationship Specialty Start Date End Date Chiara Duque MD [address] [place] [address] PCP - General Family Medicine 09/12/23 INFORMATION SOURCE (unrecogn ized section and content) DATE CREATED AUTHOR 07/07/2022 [facility] DATE CREATED AUTHOR 'S ORGANIZ ATION 07/15/2022 [facility] DATE CREATED AUTHOR AUTHOR'S ORGANIZ ATION 09/24/2023 [facility] EPIC DATE CREATED AUTHOR AUTHOR'S ORGANIZ ATION 10/24/2023 [facility] DATE CREATED AUTHOR AUTHOR'S ORGANIZ ATION 10/29/2023 [facility] DATE CREATED AUTHOR AUTHOR'S ORGANIZ ATION 01/15/2024 [facility] FOR RECORDS PERTAINING TO PATIENTS WHO ARE OR HAVE BEEN ENROLLED IN A CHEMICAL DEPENDENCY/SUBSTANCEABUSE PROGRAM, SOME INFORMATION MAY BE OMITTED. This clinical summary was aggregated from multiple sources. Caution should be exercised in using it in the provision of clinical care. This summary normalizes information from multiple sources, and as a consequence, information in this document may materially change the coding, format and clinical context of patient data. In addition, data may be omitted in some cases. CLINICAL DECISIONS SHOULD BE BASED ON THE PRIMARY CLINICAL RECORDS. [facility] [place] [email or web address] provides no warranty or guarantee of the accuracy or completeness of information in this document.
== END 2024-06-09 17:30 | disposition home or self-care (01) ==
LOC: RAD 17:30
PROVIDERS: PCP Family Medicine; Visit Provider Family Medicine
DX: M25.559 Pain in unspecified hip (principal); M16.0 Bilateral primary osteoarthritis of hip
CPT/HCPCS: 73502

== ENCOUNTER 2024-09-14 06:36 | Outpatient (OUT) | payer OTHER, SELFPAY ==
[2024-09-14 07:05] LABS: Basophils Percent Auto 0.4 % (0.2-2.0); Eosinophils Absolute Auto 0.1 10^3/uL (0.0-0.7); Eosinophils Percent Auto 3.1 % (0.9-7.0); Hematocrit 41.1 % (36.0-48.0); Hemoglobin 13.8 g/dL (12.0-16.0); Immature Granulocytes Abs Auto 0.01 10^3/uL (0.00-0.03); Immature Granulocytes Pct Auto 0.2 % (0.0-0.5); Lymphocytes Absolute Auto 1.6 10^3/uL (1.2-3.8); Lymphocytes Percent Auto 35.6 % (20.5-60.0); Mean Corpuscular HGB Conc 33.6 g/dL (29.9-35.2); Mean Corpuscular Hemoglobin 31.1 pg (26.7-34.0); Mean Corpuscular Volume 92.6 fL (81.0-99.0); Mean Platelet Volume 10.4 fL (9.5-13.5); Monocytes Absolute Auto 0.4 10^3/uL (0.3-0.8); Monocytes Percent Auto 8.5 % (1.7-12.0); Neutrophils Absolute Auto 2.4 10^3/uL (1.4-6.5); Neutrophils Percent Auto 52.2 % (43.0-75.0); Platelet Count 200 10^3/uL (150-450); Red Blood Count 4.44 10^6/uL (4.20-5.40); Red Cell Distribution Width 13.2 % (11.0-15.0); White Blood Count 4.6 10^3/uL (4.0-11.0)
[2024-09-14 07:12] LABS: Estimated Average Glucose 111 mg/dL; Glycohemoglobin A1C 5.5 % (4.5-6.2)
[2024-09-14 08:25] LABS: Alanine Aminotransferase 48 U/L (14-59); Albumin Globulin Ratio 1.3; Albumin Level 3.9 g/dL (3.4-5.0); Alkaline Phosphatase 57 U/L (46-116); Anion Gap 12.9; Aspartate Amino Transferase 20 U/L (15-37); Bilirubin Total 0.5 mg/dL (0.2-1.0); Calcium 8.9 mg/dL (8.5-10.1); Carbon Dioxide 29.3 mmol/L (21.0-32.0); Chloride 100 mmol/L (98-107); Chol HDL Ratio 5.1; Cholesterol 259 mg/dL (<=200); Estimated GFR (African America >60 (>=60 mL/min/1.73m^2); Estimated GFR (Non-African Ame >60 (>=60 mL/min/1.73m^2); Free T3 2.21 pg/mL (2.18-3.98); Globulin 2.9 g/dL; Glucose 105 mg/dL (74-106); HDL Cholesterol 51 mg/dL (40-60); Potassium 4.2 mmol/L (3.5-5.1); Sodium 138 mmol/L (136-145); Thyroid Stimulating Hormone 2.356 uIU/mL (0.358-3.740); Total Protein 6.8 g/dL (6.4-8.2); Triglycerides 152 mg/dL (<=150); VLDL CHOLESTEROL 30.4 mg/dL
[2024-09-15 09:07] LABS: Insulin 14.9 uIU/mL (2.6-24.9)
== END 2024-09-14 06:37 | disposition home or self-care (01) ==
LOC: LAB 06:37
PROVIDERS: PCP Family Medicine; Visit Provider Family Medicine
DX: Z00.00 Encounter for general adult medical examination without abnormal findings (principal)
CPT/HCPCS: 36415; 80053; 80061; 83036; 83525; 83540; 84436; 84443; 84481; 85025

== ENCOUNTER 2024-12-24 06:32 | Outpatient (OUT) | payer OTHER, SELFPAY ==
--- OUTSIDE RECORDS SUMMARY | 2024-12-24 06:36 | XMS_ITS | CCD ---
Author Organization [facility] Providers Care Baggage Agent Name Role Phone Chiara Duque MD Primary Care Provider [phone] JAMA, DR GUADARRAMA Admitting Unavailable HOY, DR GUADARRAMA Attending Unavailable HOY, DR GUADARRAMA Primary Care Unavailable HOY, DR GUADARRAMA Admitting Unavailable HOY, DR GUADARRAMA Attending Unavailable HOY, DR GUADARRAMA Primary Care Unavailable HOY, DR GUADARRAMA Admitting Unavailable HOY, DR GUADARRAMA Attending Unavailable HOY, DR GUADARRAAM Primary Care Unavailable HOY, DR GUADARRAMA Consulting Unavailable OSCARRIGENOVEVA Ramirez Attending Unavailable SARA DUQUELAS M Referring Unavailable Chiara Duque MD Primary Care Provider [phone] CHIARA DUQUE Referring Unavailable HOY, CHIARA M Primary Care Unavailable SHOLEY, ZACKARY M Attending Unavailable SHOLEY, ZACKARY M Referring Unavailable HOY, CHIARA M Primary Care Unavailable SHOLEY, ZACKARY M Attending Unavailable SHOLEY, ZACKARY M Referring Unavailable HOY, CHIARA M Primary Care Unavailable FRIES, DARBY S Referring Unavailable HOY, CHIARA M Primary Care Unavailable SHOLEY, ZACKARY M Attending Unavailable SHOLEY, ZACKARY M Referring Unavailable HOY, CHIARA M Primary Care Unavailable SHOLEY, ZACKARY M Attending Unavailable SHOLEY, ZACKARY M Referring Unavailable HOY, CHIARA M Primary Care Unavailable SHOLEY, ZACKARY M Attending Unavailable SHOLEY, ZACKARY M Referring Unavailable HOY, CHIARA M Primary Care Unavailable FRIES, DARBY S Referring Unavailable HOY, CHIARA M Primary Care Unavailable Chiara Duque MD Primary Care Provider [phone] CHIARA DUQUE Referring Unavailable HOY, CHIARA M Primary Care Unavailable HOY, CHIARA M Referring Unavailable HOY, CHIARA M Primary Care Unavailable HOY, CHIARA M Referring Unavailable HOY, CHIARA M Primary Care Unavailable HOY, CHIARA M Primary Care Unavailable CHIARA DUQUE Referring Unavailable CHIARA DUQUE M Referring Unavailable CHIARA DUQEU Primary Care Unavailable CHIARA DUQUE M Referring Unavailable CHIARA DUQUE M Primary Care Unavailable CHIARA DUQUE M Referring Unavailable CHIARA DUQUE Primary Care Unavailable Medications Current Medications Medication Drug Class(es) Dates Sig (Normalized) Sig (Original) acetaminophen 325 mg oral tablet (9 sources) Start: 07-05-2022 take 2 tablets by mouth every six hours as needed for pain acetaminophen (TYLENOL) 325 MG tablet Take 2 tablets by mouth every 6 hours as needed for Pain 40 tablet 07/05/2022 Active cyclobenzaprine hydrochloride 10 mg oral [...] 0 Active escitalopram 10 mg oral tablet (9 sources) Serotonin Reuptake Inhibitor take 1 tablet by mouth once daily escitalopram (LEXAPRO) 10 MG tablet Take 10 mg by mouth daily Active take 2 tablets by mouth in the m orning escitalopram (Lexapro) 10 MG tablet Take 20 mg by mouth in the morning. 0 Active hyoscyamine sulfate 0.125 mg oral tablet (9 sources) take 1 tablet by palmira th twice daily as needed hyoscyamine (ANASPAZ;LEVSIN) 125 MCG tablet Take 125 mcg by mouth 2 times daily as needed for Cramping Active Hyoscyamine Sulf ate (HYOSCYAMINE PO) Take by mouth daily 0 Active ibuprofen 800 mg oral tablet (1 source) Nonsteroidal Anti-inflammatory Drug Start: 07-05-2022 take 1 tablet by mouth every eight hours as needed for pain ibuprofen (IBU) 800 MG tablet Take 1 tablet by mouth every 8 hours as needed for Pain 21 tablet 0 07/05/2022 Active lisinopril 20 mg oral tablet (9 sources) Angiotensin Converting Enzyme Inhibitor take 1 tablet by mouth once daily lisinopril (PRINIVIL;ZESTRI L) 20 MG tablet Take 20 mg by mouth daily Active Loratadine (1 source) Loratadine (CLARITIN PO) Take by mouth daily 0 Active Multiple Vitamins-Minerals (EMERGEN-C FIVE PO) (9 sources) Multiple Vitamins-Mineral s (EMERGEN-C FIVE PO) Take by mouth Active Multiple Vitamin s-Minerals (EMERGEN-C FIVE PO) Take by mouth 0 Active phentermine hydrochloride 37.5 mg oral tablet (8 sources) Sympathomimetic Amine Anorectic take 1 tablet by mouth once daily before breakfast phentermine (ADIPEX-P) 37.5 MG tablet Take 37.5 mg by mouth every morning (before breakfast). Active Probiotic Product (PROBIOTIC DAILY PO) (9 sources) Probiotic Produc t (PROBIOTIC DAILY PO) Take by mouth daily Active Probiotic Produc t (PROBIOTIC DAILY PO) Take by mouth daily 0 Active Completed/Discontinued Medications Medication Drug Class(es) Dates Sig (Normalized) Sig (Original) iopamidol (ISOVUE-370) 76 % injection 75 mL (1 source) Start: 07-05-2022 End: 07-05-2022 iopamidol (ISOVUE-370) 76 % injection 75 mL Problems Active Problems Problem Classification Problem Date Documented Da te Episodic/Chronic E Codes: Fall (1 source) Fall from steps ; Translations: [Fall (on) (from) unspecified stairs and steps, initial encounter] Episodic Nonmalignant breast conditions (3 sources) Unspecified lump in unspecified breast; Translations: [Solitary cyst of right breast] Onset: 10-02-2023 Episodic Other female genital disorders (1 source) Pelvic congestion syndrome; Translations: [Other specified conditions associated with female genital organs and menstrual cycle] Onset: 09-18-2023 09-18-2023 Episodic Other gastrointestinal disorders (1 source) Irritable bowel syndrome; Translations: [Irritable bowel syndrome without diarrhea] Onset: 09-18-2023 09-18-2023 Chronic Other non-traumatic joint disorders (2 sources) Pain in left hip; Translations: [Pain in left hip] Onset: 10-18-2024 Episodic Other upper respiratory infections (1 source) Chronic sinusitis; Translations: [Chronic sinusitis, unspecified] Onset: 09-18-2023 09-18-2023 Chronic Ovarian cyst (1 source) Cyst of right ovary; Translations: [Unspecified ovarian cyst, right side] Episodic Peripheral and visceral atherosclerosis (1 source) Intermittent 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; Translations: [Atherosclerosis of [place] post[place] arteries of extremities with intermittent claudication, bilateral legs] Onset: 09-18-2023 09-18-2023 Chronic Superficial injury; contusion (1 source) Contusion of forehead; Translations: [Contusion of other part of head, initial encounter] Episodic Unclassified (1 source) Annual Exam Onset: 10-27-2023 Past or Other Problems Problem Classification Problem Date Documented Da te Episodic/Chronic Other screening for suspected conditions (not mental disorders or infectious disease) (4 sources) Encounter for screening for malignant neoplasm of vagina; Translations: [Other abnormal and inconclusive findings on diagnostic imaging of breast] Onset: 09-19-2023 Episodic Results Test Name Value Interpretation Reference Range Facility MAMM DIAGNOSTIC UNILAT RT W CADon 07-20-2024 MAMM DIAGNOSTIC UNILAT RT W CAD MAMM DIAGNOSTIC UNILAT RT W CAD JOSÉ PRITCHARD 1975 [id number] EXAM: MAMM DIAGNOSTIC UNILAT RT W CAD, 07/20/2024 2:39 PM CLINICAL INDICATIONS: Breast mass seen on mammogram, COMPARISON: Diagnostic studies from 2023 and additional screening exams dating back to 2021 TECHNIQUE: Supplemental views of the right breast were obtained for diagnostic workup. Digital tomosynthesis images were obtained, with creation of synthetic 2D views. Computer aided detection was utilized. FINDINGS: There are scattered areas of fibroglandular density. Previous noted cyst 7 cm from the nipple is unchanged. Additional more posterior observation has resolved. There are no suspicious masses, calcifications, or areas of architectural distortion. IMPRESSION: No mammographic evidence of malignancy. BI-RADS: BI-RADS 2 - Benign RECOMMENDATION: Routine screening mammogram in 1 year. Patient was given the results before leaving the department. 5 Finalized by Gera Ibarra DO on 07/20/2024 2:53 PM 2 b MAMM 1 YR Normal [facility] MAMM DIAGNOSTIC UNILAT RT W CADon 01-13-2024 [...] PM 3 b MAMM 6 MONTH Normal [facility] US BREAST RT LIMITEDon 01-12 US [...] PM 3 b MAMM 6 MONTH Normal [facility] Cytologyon 10-27-2023 Cytology Normal [facility] Comment on above: Result Comment: [facility] [address] [place] [address] Gynecologic Cytology Consultation Patient Name:JOSÉ PRITCHARD:1975 (Age: 48)Gender:FTaken:4Reported:4Physician(s):ALIRIO MACIEL C.N.M. ([phone])Copy To: Rec. #:[id number]: #[id number] Final Cytologic Interpretation ThinPrep Pap Test (Cervical): Satisfactory for evaluation. A transformation zone component is present. NEGATIVE FOR INTRAEPITHELIAL LESION OR MALIGNANCY. osei/11/05/2023 Interpretation performed at [facility], [address] [place] [address], License number: [id number]. Electronically Signed Out By RICKI Dubose(ASCP) Date of Last Menstrual Period: (None Given) Other Clinical Conditions: Z01.419 Scow Hand exam wo/abn findings Z12.72 Screeing for malignant neoplasm of vagina Source of Specimen ThinPrep Pap Test (Cervical) Thin Prep Pap (ANGIOGRAPHER) Fee Code(s): G0145 HIGH RISK HPV W/GENOon 10-27 HPV 31+33+35+39+45+51+52+5 6+58+59+66+68 DNA ANDREE+probe Ql (Cvx) HPV SPECIMEN TYPE ThinPrep HPV 16 Negative (qualifier value) HPV 18 Negative (qualifier value) OTHER HIGH RISK HPV Negative (qualifier value) HPV types 31,33,35,39,45,52,5 6,58,59,66 and 68 DNA were undetectable. Normal [facility] Comment on above: Performed By: #### 7 1431-1 #### [facility] ([id number]) [address] [place] [address], FIRST FLOOR [address] [facility] ([id number]) [address] [place] [address], [address] [place] [address] Physician Orderon 10-22-2023 Physician Order [id number] A0#[id number] Normal [facility] MAMM DIAGNOSTIC UNILAT RT W CADon 10-14-2023 MAMM DIAGNOSTIC UNILAT RT W CAD MAMM DIAGNOSTIC UNILAT RT W CAD EXAM: MAMM DIAGNOSTIC UNILAT RT W CAD, 10/14/2023 2:35 PM CLINICAL INDICATIONS: Mass of right breast, unspecified quadrant; Abnormality of right breast on screening mammogram, COMPARISON: Recent screening study and additional comparison 2018 TECHNIQUE: MLO and cc compression views with [...] PM 3 b MAMM 3 MONTH Normal [facility] US BREAST RT LIMITEDon 10-14 US BREAST RT LIMITED US BREAST RT LIMITED EXAM: US BREAST RT LIMITED, 10/14/2023 3:13 PM CLINICAL INDICATIONS:Mass of right breast, unspecified quadrant; Abnormality of right breast on screening mammogram. COMPARISON: Recent screening study and additional comparison 2018 TECHNIQUE: Multiple real-time dalton-scale images of the [...] 3:55 PM 3 US 3 MONTH Normal [facility] Physician Orderon 09-23-2023 Physician Order [id number] 34#[id number] Normal [facility] MAMM SCREENING BILATERAL W C student ministries director 09-19-2023 MAMM SCREENING BILATERAL W CAD MAMM [...] 4:03 PM 0A b ADDITIONAL I Normal [facility] Basic Metabolic Panelon 10-2 Anion gap [Moles/Vol] 11 mmol/L 9 - 17 mmol/L [facility] Calcium [Mass/Vol] 8.9 mg/dL 8.6 - 10. 4 mg/dL [facility] Chloride [Moles/Vol] 107 mmol/L 98 - 10 7 mmol/L [facility] CO2 [Moles/Vol] 24 mmol/L 20 - 31 mmol/L [facility] Creatinine [Mass/Vol] 0.71 mg/dL 0.50 - 0.90 mg/dL [facility] GFR/1.73 sq M.predicted MDRD (S/P/Bld) [Vol rate/Area] - PINF [facility] Comment on above: Effective Jun 10, 2022 [...] 117 mg/dL High 70 - 99 mg/dL [facility] Interpretation and review of laboratory results Abnormal [facility] Potassium [Moles/Vol] 4.0 mmol/L 3.7 - 5.3 mmol/L [facility] Sodium [Moles/Vol] 142 mmol/L 135 - 144 mmol/L [facility] Urea nitrogen (BldV) [Mass/Vol] 18 mg/dL 6 - 20 mg/dL [facility] Urea nitrogen/Creatinine (Bld) [Mass ratio] 25 High 9 - 20 [facility] CBCon 07-05-2022 Hematocrit (Bld) [Volume fraction] 41.5 % 36.3 - 47.1 % [facility] Hemoglobin (Bld) [Mass/Vol] 14.1 g/dL 11.9 - 15.1 g/dL [facility] MCH (RBC) [Entitic mass] 32.0 pg 25.2 - 33.5 pg [facility] MCHC (RBC) [Mass/Vol] 34.0 g/dL 28.4 - 34.8 g/dL [facility] MCV (RBC) [Entitic vol] 94.3 fL 82.6 - 102.9 fL [facility] NRBC Automated 0.0 0.0 per 100 WBC [facility] Platelet distribution width (Bld) [Ratio] 12.6 % 11.8 - 14.4 % [facility] Platelet mean volume (Bld) [Entitic vol] 10.4 fL 8.1 - 13.5 fL [facility] Platelets (Bld) [#/Vol] 173 10*3/uL [facility] RBC (Bld) [#/Vol] 4.40 10*6/uL 3.95 - 5.1 1 m/uL [facility] WBC (Bld) [#/Vol] 5.6 10*3/uL [facility] CT CERVICAL SPINE WO CONTRAS Ton 10-28-2022 Radiology Study observation (narrative) [facility] Work Phone: CT CHEST ABDOMEN PELVIS W CO NTRAST Additional Contrast? Noneon 07-05-2022 Radiology Study observation (narrative) [facility] Work Phone: CT Head WO Contraston 2021 Radiology Study observation (narrative) [facility] Work Phone: Ethanolon 07-05-2022 Ethanol [Mass/Vol] 233 mg/dL High NINF - 10 mg/dL [facility] Ethanol percent 0.233 % High NINF - 0.010 % [facility] Interpretation and review of laboratory results Abnormal [facility] [employer] No Panel Informationon 07-[address]: No [...] further evaluation pelvic ultrasound examination is recommended. [facility] RIS CONSOLIDATED EXAMINATION: CT OF THE HEAD [...] concerning lytic or sclerotic lesions are noted. [facility] RIS CONSOLIDATED Uvaldo Reddy MD - 07/05/2022 [...] further evaluation pelvic ultrasound examination is recommended. [employer] Phone: No Panel InformationOrdered By: Uvaldo Reddy on 07-05-2022 [employer] Phone: CBC AUTO DIFFon 09-15-2021 BASO # 0.0 103/ul Normal 0.0-0.1 [facility] Comment on above: Performed By: #### C BC #### [facility] [address] [address] [address] Lakshmi Galvez Basophils/100 WBC (Bld) 1.0 % Normal 0.2-2.0 [facility] Comment on above: Performed By: #### C BC #### [facility] [address] [place] [address] Dr. Lakshmi Galvez EO # 0.2 103/ul Normal 0.0-0.[address] [facility] Comment on above: Performed By: #### C BC #### [facility] [address] [place] [address] Dr. Lakshmi Galvez Eosinophils/100 WBC (Bld) 3.9 % Normal 0.9-7.[address] [facility] Comment on above: Performed By: #### C BC #### [facility] [address] [place] [address] Dr. Lakshmi Galvez Erythrocyte distribution width (RBC) [Ratio] 12.4 % Normal 11.0-15.0 [facility] Comment on above: Performed By: #### C BC #### [facility] [address] [place] [address] Dr. Lakshmi Galvez Hematocrit (Bld) [Volume fraction] 41.5 % Normal 36.0-48.0 [facility] Comment on above: Performed By: #### C BC #### [facility] [address] [place] [address] Dr. Lakshmi Galvez Hemoglobin (Bld) [Mass/Vol] 13.9 g/dL Normal 12.0-16.0 [facility] Comment on above: Performed By: #### C BC #### [facility] [address] [place] [address] Dr. Lakshmi Galvez IG # 0.01 10e3/ul Normal 0.00-0.[address] [facility] Comment on above: Performed By: #### C BC #### [facility] [address] [place] [address] Dr. Lakshmi Galvez IG % 0.2 % Normal 0.0-0.[address] [facility] Comment on above: Performed By: #### C BC #### [facility] [address] [place] [address] Dr. Lakshmi Galvez LYMPH # 1.5 103/ul Normal 1.2-3.[address] [facility] Comment on above: Performed By: #### C BC #### [facility] [address] [place] [address] Dr. Lakshmi Galvez Lymphocytes/100 WBC (Bld) 36.6 % Normal 20.5-60.[address] [facility] Comment on above: Performed By: #### C BC #### [facility] [address] [place] [address] Dr. Lakshmi Galvez MANUAL DIFF REQ NO Normal [facility] Comment on above: Performed By: #### C BC #### [facility] [address] [place] [address] Dr. Lakshmi Galvez MCH (RBC) [Entitic mass] 31.2 pg Normal 26.7-34.[address] [facility] Comment on above: Performed By: #### C BC #### [facility] [address] [place] [address] Dr. Lakshmi Galvez MCHC (RBC) [Mass/Vol] 33.5 g/dL Normal 29.9-35.[address] [facility] Comment on above: Performed By: #### C BC #### [facility] [address] [place] [address] Dr. Lakshmi Galvez MCV (RBC) [Entitic vol] 93.0 fL Normal 81.0-99.[address] [facility] Comment on above: Performed By: #### C BC #### [facility] [address] [place] [address] Dr. Lakshmi Galvez MONO # 0.4 103/ul Normal 0.3-0.[address] [facility] Comment on above: Performed By: #### C BC #### [facility] [address] [place] [address] Dr. Lakshmi Galvez Monocytes/100 WBC (Bld) 9.0 % Normal 1.7-12.[address] [facility] Comment on above: Performed By: #### C BC #### [facility] [address] [place] [address] Dr. Lakshmi Galvez NEUT # 2.0 103/ul Normal 1.4-6.[address] [facility] Comment on above: Performed By: #### C BC #### [facility] [address] [place] [address] Dr. Lakshmi Galvez Neutrophils/100 WBC (Bld) 49.3 % Normal 43.0-75.0 [facility] Comment on above: Performed By: #### C BC #### [facility] [address] [address] [address] Lakshmi Galvez Platelet mean volume (Bld) [Entitic vol] 10.5 fL Normal 9.5-13.[address] [facility] Comment on above: Performed By: #### C BC #### [facility] [address] [address] [address] Lakshmi Galvez PLT 202 103/ul Normal 150-[address] [facility] Comment on above: Performed By: #### C BC #### [facility] [address] [place] [address] Dr. Lakshmi Galvez RBC 4.46 106/ul Normal 4.20-5.[address] [facility] Comment on above: Performed By: #### C BC #### [facility] [address] [address] [address] Lakshmi Galvez WBC 4.1 103/ul Normal 4.0-11.[address] [facility] Comment on above: Performed By: #### C BC #### [facility] [address] [place] [address] Dr. Lakshmi Galvez FREE THYROXINE INDEX T7on FTI 2.[address] [facility] Comment on above: Performed By: #### L IPID, CMP, T7, TSH #### [facility] [address] [address] [address] Lakshmi Galvez T3U 35.0 % Normal 23.5-40.[address] [facility] Comment on above: Performed By: #### L IPID, CMP, T7, TSH #### [facility] [address] [place] [address] Dr. Lakshmi Galvez T4 [Mass/Vol] 6.50 ug/dL Normal 5.53-11.00 [facility] Comment on above: Performed By: #### L IPID, CMP, T7, TSH #### [facility] [address] [place] [address] Dr. Lakshmi Galvez GLYCOHEMOGLOBIN A1Con 2021 ADA RECOMMENDATION ADA THERAPEUTIC TARGET 6.0 - 7.0 ACTION SUGGESTED > 7.0 Normal [facility] Comment on above: Performed By: #### A 1C #### [facility] [address] [address] [address] Lakshmi Galvez Glucose [Mass/Vol] 111 mg/dL Normal [facility] Comment on above: Performed By: #### A 1C #### [facility] [address] [address] [address] Lakshmi Galvez HbA1c (Bld) [Mass fraction] 5.5 % Normal <=6.0 [facility] Comment on above: Performed By: #### A 1C #### [facility] [address] [address] [address] Lakshmi Galvez LIPID PROFILEon 09-15-2021 CHOL-HDL RATIO NORM SEE BELOW Normal [facility] Comment on above: Result Comment: 3.3 - 4.4 LOW RISK 4.4 - 7.1 AVERAGE RISK 7.1 - 11.0 MODERATE RISK >11.0 HIGH RISK Performed By: #### L IPID, CMP, T7, TSH #### [facility] [address] [address] [address] Lakshmi Galvez Cholesterol [Mass/Vol] 237 mg/dL Critically high <=200 [facility] Comment on above: Performed By: #### L IPID, CMP, T7, TSH #### [facility] [address] [address] [address] Lakshmi Galvez Cholesterol in HDL [Mass/Vol] 50 mg/dL Normal [facility] Comment on above: Performed By: #### L IPID, CMP, T7, TSH #### [facility] [address] [address] [address] Lakshmi Galvez Cholesterol in LDL [Mass/Vol] 144.8 mg/dL Normal [facility] Comment on above: Performed By: #### L IPID, CMP, T7, TSH #### [facility] [address] [address] [address] Lakshmi Galvez Cholesterol.total/Chol esterol in HDL [Mass ratio] 4.7 {ratio} Normal [facility] Comment on above: Performed By: #### L IPID, CMP, T7, TSH #### [facility] [address] [address] [address] Lakshmi Galvez HDL NORMAL > or = 60 mg/dl - LOW CARDIOVASCULAR RISK <40 mg/dl - HIGH CARDIOVASCULAR RISK Normal [facility] Comment on above: Performed By: #### L IPID, CMP, T7, TSH #### [facility] [address] [address] [address] Lakshmi Galvez LDL CALC NORMAL SEE BELOW Normal [facility] Comment on above: Result Comment: <100 mg/dl OPTIMAL 100 - 129 mg/dl NEAR OR ABOVE OPTIMAL 130 - 159 mg/dl BORDERLINE HIGH 160 - 189 mg/dl HIGH >190 mg/dl VERY HIGH Performed By: #### L IPID, CMP, T7, TSH #### [facility] [address] [address] [address] Lakshmi Galvez Triglyceride [Mass/Vol] 211 mg/dL Critically high <=150 [facility] Comment on above: Performed By: #### L IPID, CMP, T7, TSH #### [facility] [address] [address] [address] Lakshmi Galvez VLDL CALC 42.2 mg/dL Normal [facility] Comment on above: Performed By: #### L IPID, CMP, T7, TSH #### [facility] [address] [address] [address] Lakshmi Galvez PROF 14(COMP METB)on 022 Albumin [Mass/Vol] 3.9 g/dL Normal 3.5-5.0 [facility] Comment on above: Performed By: #### L IPID, CMP, T7, TSH #### [facility] [address] [address] [address] Lakshmi Glavez Albumin/Globulin [Mass ratio] 1.1 {ratio} Normal [facility] Comment on above: Performed By: #### L IPID, CMP, T7, TSH #### [facility] [address] [address] [address] Lakshmi Galvez ALP [Catalytic activity/Vol] 55 U/L Normal 38-126 [facility] Comment on above: Performed By: #### L IPID, CMP, T7, TSH #### [facility] [address] [place] [address] Dr. Lakshmi Galvez ALT [Catalytic activity/Vol] 53 U/L Critically high 9-52 [facility] Comment on above: Performed By: #### L IPID, CMP, T7, TSH #### [facility] [address] [place] [address] Dr. Lakshmi Galvez Anion gap [Moles/Vol] 13.0 mmol/L Normal [facility] Comment on above: Performed By: #### L IPID, CMP, T7, TSH #### [facility] [address] [place] [address] Dr. Lakshmi Galvez AST [Catalytic activity/Vol] 23 U/L Normal 14-36 [facility] Comment on above: Performed By: #### L IPID, CMP, T7, TSH #### [facility] [address] [place] [address] Dr. Lakshmi Galvez Bilirubin [Mass/Vol] 0.5 mg/dL Normal 0.2-1.3 [facility] Comment on above: Performed By: #### L IPID, CMP, T7, TSH #### [facility] [address] [place] [address] Dr. Lakshmi Galvez Calcium [Mass/Vol] 8.8 mg/dL Normal 8.4-10.2 [facility] Comment on above: Performed By: #### L IPID, CMP, T7, TSH #### [facility] [address] [address] [address] Lakshmi Galvez Chloride [Moles/Vol] 101 mmol/L Normal 98-107 [facility] Comment on above: Performed By: #### L IPID, CMP, T7, TSH #### [facility] [address] [place] [address] Dr. Lakshmi Galvez CO2 [Moles/Vol] 26.9 mmol/L Normal 22.0-30.0 [facility] Comment on above: Performed By: #### L IPID, CMP, T7, TSH #### [facility] [address] [address] [address] Lakshmi Galvez Creatinine [Mass/Vol] 0.65 mg/dL Normal 0.52-1.04 [facility] Comment on above: Performed By: #### L IPID, CMP, T7, TSH #### [facility] [address] [place] [address] Dr. Lakshmi Galvez EGFR-AF NAMIBIAN >60 Normal >=60 [facility] Comment on above: Performed By: #### L IPID, CMP, T7, TSH #### [facility] [address] [place] [address] Dr. Lakshmi Galvez EGFR-NON AF NAMIBIAN >60 Normal >=60 [facility] Comment on above: Performed By: #### L IPID, CMP, T7, TSH #### [facility] [address] [place] [address] Dr. Lakshmi Galvez Globulin (S) [Mass/Vol] 3.4 g/dL Normal [facility] Comment on above: Performed By: #### L IPID, CMP, T7, TSH #### [facility] [address] [place] [address] Dr. Lakshmi Galvez Glucose [Mass/Vol] 108 mg/dL Critically high 74-106 [facility] Comment on above: Performed By: #### L IPID, CMP, T7, TSH #### [facility] [address] [place] [address] Dr. Lakshmi Galvez Potassium [Moles/Vol] 3.9 mmol/L Normal 3.4-5.0 [facility] Comment on above: Performed By: #### L IPID, CMP, T7, TSH #### [facility] [address] [place] [address] Dr. Lakshmi Galvez Protein [Mass/Vol] 7.3 g/dL Normal 6.1-8.2 [facility] Comment on above: Performed By: #### L IPID, CMP, T7, TSH #### [facility] [address] [address] [address] Lakshmi Galvez Sodium [Moles/Vol] 137 mmol/L Normal 137-145 [facility] Comment on above: Performed By: #### L IPID, CMP, T7, TSH #### [facility] [address] [address] [address] Lakshmi Galvez Urea nitrogen [Mass/Vol] 11.0 mg/dL Normal 7.0-17.0 [facility] Comment on above: Performed By: #### L IPID, CMP, T7, TSH #### [facility] [address] [address] [address] Lakshmi Galvez Urea nitrogen/Creatinine [Mass ratio] 16.9 mg/mg Normal [facility] Comment on above: Performed By: #### L IPID, CMP, T7, TSH #### [facility] [address] [place] [address] Dr. Lakshmi Galvez TSHon 09-15-2021 TSH 3.650 uIU/mL Normal 0.470-4.680 [facility] Comment on above: Performed By: #### L IPID, CMP, T7, TSH #### [facility] [address] [address] [address] Lakshmi Galvez TSH RANGE SEE BELOW Normal [facility] Comment on above: Result Comment: <0.3 4 UIU/ml HYPERTHYROID 0.34-5.60 UIU/ml EUTHYROID >5.60 UIU/ml HYPOTHYROID Performed By: #### L IPID, CMP, T7, TSH #### [facility] [address] [place] [address] Dr. Lakshmi Galvez Vital Signs Date Time Vital Sign Value Performing Clinician Manuel sue 07-05-2022 20:12-0400 Body height 170.2 cm Bianca Bowden DO Work Phone: [facility] 07-05-2022 20:12-0400 Body mass index (BMI) [Ratio] 28.82 kg/m2 Bianca Bowden DO Work Phone: [facility] 07-05-2022 20:12-0400 Body weight 83.46 kg Bianca Velazquezis DO Work Phone: [employer] 07-05-2022 20:02-0400 Body temperature 97.59 [degF] Bianca Velazquezis DO Work Phone: [facility] [employer] [facility] 07-05-2022 20:02-0400 Diastolic blood pressure 68 mm[Hg] Bianca Kal DO Work Phone: [facility] [employer] 07-05-2022 20:02-0400 Heart rate 79 /min Bianca Velazquezis DO Work Phone: [facility] [employer] 07-05-2022 20:02-0400 Respiratory rate 18 /min Bianca Velazquezis DO Work Phone: [facility] [employer] [facility] 07-05-2022 20:02-0400 SaO2% (BldA) [Mass fraction] 93 % Bianca Kal DO Work Phone: [facility] [employer] [facility] 07-05-2022 20:02-0400 Systolic blood pressure 126 mm[Hg] Bianca Velazquezis DO Work Phone: [employer] Encounters Encounter Date Encounter Type Care Provider Facility Start: 11-08-2024 End: 11-08-2024 ambulatory CH[facility]ARA Posadas [facility] Start: 11-08-2024 End: 11-08-2024 Subsequent hospital visit by physician Nasrni Lara PT [facility] Comment on above: Arrived Start: 11-01-2024 End: 11-01-2024 Subsequent hospital visit by physician Hailey Parks PT [facility] Start: 10-27-2024 End: 10-27-2024 ambulatory CHIARA Posadas [facility] Start: 10-27-2024 End: 10-27-2024 Subsequent hospital visit by physician Sage Hart [facility] Comment on above: Arrived Start: 10-25-2024 End: 10-25-2024 ambulatory CHIARA Posadas [facility] Start: 10-25-2024 End: 10-25-2024 Subsequent hospital visit by physician Sage Hart [facility] Comment on above: Arrived Start: 10-18-2024 End: 10-18-2024 ambulatory CHIARAWILFRID Posadas [facility] Start: 10-18-2024 End: 10-18-2024 Subsequent hospital visit by physician Kristin Ramos [employer] [facility] Comment on above: Arrived Start: 10-15-2024 End: 10-15-2024 ambulatory CHIARA M Dagmar [facility] Start: 10-15-2024 End: 10-15-2024 Subsequent hospital visit by physician Nasrin Lara PT [facility] Comment on above: Arrived Start: 10-13-2024 End: 10-13-2024 ambulatory CHIARAWILFRID DUQUE [facility] Start: 10-13-2024 End: 10-13-2024 Subsequent hospital visit by physician Sage Hart [facility] Comment on above: Arrived Start: 10-07-2024 End: 10-07-2024 ambulatory [place] Sheyla Dagmar [facility] Start: 10-07-2024 End: 10-07-2024 Subsequent hospital visit by physician Hailey Parks PT [facility] Comment on above: Arrived Start: 07-20-2024 End: 07-20-2024 ambulatory [facility] Start: 01-13-2024 End: 01-13-2024 ambulatory [facility] Start: 10-27-2023 End: 10-27-2023 ambulatory [facility] Start: 10-27-2023 Encounter for gynecological examination (general) (routine) without abnormal findings [facility] Start: 10-27-2023 End: 10-27-2023 ambulatory DARBY S [facility] Start: 10-16-2023 Telephone encounter Bonnie Omalley RN Work Phone: [facility] Start: 10-14-2023 End: 10-14-2023 ambulatory [facility] Start: 09-23-2023 End: 09-23-2023 ambulatory GENOVEVA WINTERS Not Available Start: 09-19-2023 End: 09-19-2023 ambulatory DARBY MACIEL [facility] Start: 09-19-2023 Encounter for gynecological examination (general) (routine) without abnormal findings ZACKARY ELIZABETH [facility] Start: 07-20-[address] CHIARA DUQUE Facility :[facility]1 Start: 07-05-2022 End: 07-05-2022 Emergency department patient visit Bianca Bowden DO Work Phone: [facility] ED Comment on above: Fall from steps, ini tial encounter (Primary Dx); Cyst of right ovary; Contusion of forehead, initial encounter Start: 10-12-[address] CHIARA DUQUE Facility :[facility] Start: 09-20-2021 Encounter for genera l adult medical examination without abnormal findings DR CHIARA DUQUE [facility] Start: 09-15-2021 End: 09-16-[address] CHIARA DUQUE Facility:[facility] Start: 09-15-2021 End: 09-16-2021 Encounter for general adult medical examination without abnormal findings DR CHIARA DUQUE Facility:[facility]1 Procedures Date Procedure Procedure Detail Performing Clinician Start: 09-19-2023 Mammography Bonnie Omalley RN Work Phone: Start: 07-05-2022 Ct head/brain w/o co ntrast material Bianca Bowden DO Work Phone: Start: 07-05-2022 Ct cervical spine w/ o contrast material Bianca Bowden DO Work Phone: Start: 07-05-2022 Ct thorax w/contrast material Bianca Bowden DO Work Phone: Start: 07-05-2022 Assay of ethanol Elliott Bowden DO Work Phone: Start: 07-05-2022 Basic metabolic pane l calcium total Bianca Bowden DO Work Phone: Plan of Treatment Date Care Activity Detail Author Start: 09-19-2025 Screening for malignant neoplasm of breast Breast cancer screen [facility] Start: 11-08-2024 End: 11-08-2024 Patient encounter procedure 11/08/2024 5:15 PM EST Appointment [facility] [address] [place] [phone] Nasrin Lara, PT HAILEY PT [facility] Comment on above: HAILEY NAJERA Start: 11-01-2024 End: 11-01-2024 Patient encounter procedure 11/01/2024 5:15 PM EST Appointment [facility] [address] [place] [phone] Hailey Parks, PT [facility] Comment on above: [facility] Start: 10-28-2024 End: 10-28-2024 Patient encounter procedure 10/28/2024 4:45 PM EST Appointment [facility] [address] [place] [phone] Sage Hart [facility] Start: 10-27-2024 End: 10-27-2024 Patient encounter procedure 10/27/2024 4:45 PM EST Appointment [facility] [address] [place] [phone] Sage Hart [facility] Start: 10-25-2024 End: 10-25-2024 Patient encounter procedure 10/25/2024 4:45 PM EST Appointment [facility] [address] [place] [phone] Sage Hart [facility] Start: 10-20-2024 End: 10-20-2024 Patient encounter procedure 10/20/2024 4:00 PM EST Appointment [facility] [address] [place] [phone] Sage Hart [facility] Start: 10-18-2024 End: 10-18-2024 Patient encounter procedure 10/18/2024 4:30 PM EST Appointment [facility] [address] [place] [phone] Kristin Ramos PTA [facility] Start: 10-15-2024 End: 10-15-2024 Patient encounter procedure 10/15/2024 4:15 PM EST Appointment [facility] [address] [place] [phone] Nasrin Lara, PT [facility] Start: 10-13-2024 End: 10-13-2024 Patient encounter procedure 10/13/2024 4:45 PM EST Appointment [facility] [address] [place], [place] [phone] Sage Hart [facility] Start: 09-19-2024 Screening for malignant neoplasm of breast Mammogram [facility] Start: 05-09-2024 COVID-19 Vaccine ( season) COVID-19 Vaccine ( season) [facility] [employer] Start: 04-08-2024 Influenza vaccination Flu vaccine (# 1) [facility] [employer] Start: 2023 Pneumococcal 50+ yea rs Vaccine (1 of 1 - PCV) Pneumococcal 50+ years Vaccine (1 of 1 - PCV) [facility] [employer] Start: 08-20-2022 End: 08-20-2022 Patient encounter procedure 08/20/2022 Office Visit Gastroenterology Caryn Mishra MD [address] [place] [address] [place] [address] [facility] Start: 04-08-2022 Influenza vaccination Flu vaccine (# 1) [facility] [employer] Start: 08-28-2021 COVID-19 Vaccine (4 - Booster for Pfizer series) COVID-19 Vaccine (4 - Booster for Pfizer series) [facility] [employer] Start: 2018 Screening for malignant neoplasm of colon [facility] [employer] Start: 2013 Lipid panel Lipids [facility] [employer] Start: 2008 Diabetes screen Diabetes screen [facility] [employer] Start: 2003 Screening for malignant neoplasm of cervix [facility] [employer] Start: 1994 Screening for malignant neoplasm of cervix Pap smear [facility] [employer] Start: 1992 DTaP/Tdap/Td vaccine (1 - Tdap) DTaP/Tdap/Td vaccine (1 - Tdap) [facility] [employer] Start: 1992 Hepatitis B vaccine (1 of 3 - 19+ 3-dose series) Hepatitis B vaccine (1 of 3 - 19+ 3-dose series) [facility] Start: 1991 Hepatitis C screening Hepatitis C sc reen [facility] Start: 1988 HIV screening HIV screen [facility] Start: 1985 Depression Screen Depression Screen [facility] Start: 1973 Screening for malignant neoplasm of colon [facility] Healthcare Immunizations Immunization Date Immunization Notes Care Provider Fa cility 2023 Influenza, injectabl e, Madin [place] Canine Kidney, preservative free, quadrivalent Bonnie Omalley RN Work Phone: [facility] Healthcare 2023 zoster vaccine recombinant Bonnie Omalley RN Work Phone: [facility] Healthcare Payers Date Payer Category Payer Unknown [employer] [id number] 2023-Present [address] [place] [address] [id number] 1973 Unknown [id number] [id number] 1973 Unknown [id number] [id number]3 1973 Unknown [id number] [id number]3 1973 Unknown [id number] 2.16.840.1.644923.3.579.2.1259 1973 Unknown [id number] 2.16.840.1.831654.3.579.2.1286 1973 Unknown [id number] 2.16.840.1.823246.3.579.2.1286 1973 Unknown [id number] 2.16.840.1.482064.3.579.2.1286 1973 Unknown [id number] 2.16.840.1.760292.3.579.2.1286 1973 Unknown [id number] 2.16.840.1.062198.3.579.2.1286 1973 Unknown [id number] 2.16.840.1.450915.3.579.2.1286 1973 Unknown [id number] 2.16.840.1.793972.3.579.2.1286 1973 Unknown [id number] 2.16.840.1.801511.3.579.2.1286 1973 Unknown [id number] 2.16.840.1.049368.3.579.2.173 1973 Unknown [id number] 2.16.840.1.202470.3.579.2.173 1973 Unknown [id number] 2.16.840.1.608140.3.579.2.173 1973 Unknown [id number] 2.16.840.1.115893.3.579.2.173 1973 Unknown [id number] 2.16.840.1.096702.3.579.2.173 1973 Unknown [id number] 2.16.840.1.417393.3.579.2.173 1973 Unknown [id number] 2.16.840.1.146504.3.579.2.173 1959 Self-pay 1961 Unknown [id number] Social History Date Type Detail Facility Start: 03-26-2018 End: 09-23-2023 Tobacco smoking status [facility] Ex-smoker [employer] Phone: Start: 03-17-1989 End: 05-18-2001 History of tobacco use Current smoker [employer] Phone: Start: 03-26-2018 End: 09-23-2023 Tobacco use and exposure Smokeless tobacco non-user [employer] Work Phone: Start: 05-15-2018 End: 11-19-2022 Alcohol intake Current drinker of alcohol (finding) [employer] Phone: Start: 03-26-2018 Alcohol Comment occassionally [employer] Phone: Start: 1975 Sex Assigned At Not on file [employer] Phone: Start: 06-25-2022 End: 07-05-2022 Exposure to SARS-CoV-2 (event) Not sure [facility] [employer] Start: 03-17-1989 End: 05-18-2001 History of tobacco use Cigarette Smoker [facility] Start: 11-19-2022 End: 09-23-2023 Cigarettes smoked current (pack per day) - Reported 0.5 [facility] Start: 11-19-2022 End: 09-23-2023 Tobacco use panel [facility] Start: 1975 Sex assigned at Female [facility] [id number] Start: 11-07-2024 Gender identity Identifies as female gender (finding) [facility] [employer] History of Present illness Narrative 11-08-2024 Nasrin Lara, PT - 11/08/2024 5:15 PM EST Note Date & Type Note Facility 11-08-2024 History of Presen t illness Narrative [facility] Daily Note Patient: José Pritchard : 1975 CSN #: [id number] Referring Physician: Chiara Duque MD Date: 11/08/2024 Diagnosis: L hip pain, M25.552 Treatment Diagnosis: Bilateral hip pain, bilateral hip OA, possible REGINA Onset Date: 04/08/24 PT Insurance Information: [facility] Total # of Visits Approved: 8 Per Physician Order Total # of Visits to Date: 8 No Show: 0 Canceled Appointment: 1 11/04/24 Plan of Care/Recert Due Pre-Treatment Pain: 0/10 Subjective: Pt denies pain this date. Exercises: Exercise 1: HEP: quadraped rocking, 5-10 reps twice per day, Bent knee fallouts with PPT 5-10 twice per day, bridge 2x6 once per day; open swim program Assessment Assessment: Patient attended 8 PT visits for B hip pain and met all goals for independence with HEP, improved B hip ROM flexion: 125*, L hip IR: 25*, R hip IR: 42*, improved B LE strength: 4/5 grossly, and decreased pain, 0/10 for the past week. Pt is compliant with HEP and was given open swim program/passes to use as needed. Will place patient on 2 week hold and then d/c prn d/t all goals met. Activity Tolerance Activity Tolerance: Patient tolerated treatment well Patient Education Re-eval; continue HEP and open swim Pt verbalized/demonstrated good understanding: [x] Yes [] No, pt required further clarification. Post Treatment Pain: 0/10 Plan Plan Frequency: 2 Plan weeks: 4 Goals (Total # of Visits to Date: 8) Short Term Goals Time Frame for Short Term Goals: 2 weeks Short Term Goal 1: Patient will be initiated with a HEP-met Short Term Goal 2: Patient will tolerate 30 minutes of aquatic exercise to improve bilateral hip ROM and strength in an unloaded environment.-met Telecommunication Systems Designer Goals Time Frame for Senior Living Goals : 4 weeks [employer] Systems [employer]er Goal 1: Patient will be independent and compliant with a HEP-met Telecommunication Systems Designer Goal 2: Patient will improve bilateral hip flexion ROM to >/= 110* and internal rotation ROM to >35* to decrease pain with ADLs. (11/08: B hip flexion: 125*, L IR: 25*, R IR: 42*) Senior Living Goal 3: Patient will improve bilateral hip strength to >/= 4/5 in all major joints and planes-met (11/08: 4/5 strength grossly) Telecommunication Systems Designer Goal 4: Patient will report decreased pain to < 6/10 at worst.-met (11/08: 0/10 pain) Senior Living Goal 5: Patient will report 70% improvement in overall symptoms and function.-met (11/08: 100% improvement) Minutes Tracking: Time In: 1715 Time Out: 1729 Minutes: 14 Timed Code Treatment Minutes: 13 Minutes Nasrin Lara, PT, DPT Date: 11/08/2024 documented in this encounter [facility] History of Present illness Narrative 10-25-2024 Sage Hart - 10/25/2024 3:15 PM EST Note Date & Type Note Facility 10-25-2024 History of Present illness Narrative [facility] Daily Note Patient: José Pritchard : 1975 CSN #: [id number] Referring Physician: Chiara Duque MD Date: 10/25/2024 Diagnosis: L hip pain, M25.552 Treatment Diagnosis: Bilateral hip pain, bilateral hip OA, possible REGINA Onset Date: 04/08/24 PT Insurance Information: [employer] Total # of Visits Approved: 8 Per Physician Order Total # of Visits to Date: 5 No Show: 0 Canceled Appointment: 1 11/04/24 Plan of Care/Recert Due Pre-Treatment Pain: 6/10 Subjective: Pt states she feels a littlemore sore today. States pain remains deep Exercises: Exercise 1: HEP: quadraped rocking, 5-10 reps twice per day, Bent knee fallouts with PPT 5-10 twice per day, bridge 2x6 once per day Exercise 2: Educated on reducing joint forces at the gym and not treadmill walking daily. Exercise 3: aq-- walking in all directions, walking lunges Exercise 4: aq--FSU/SSU/SD at steps 15x yudith // HS stretch on step 2x30 ea Exercise 5: aq--side kick, back kicks, butt kicks, marching 15x Exercise 6: aq--squats and lunges 15x--squats this date Exercise 7: aq--semi deep back to wall pink board push downs and push/pulls x15 ea Exercise 8: aq--standing hip flexor stretching bi [id number], side hip adductor stretching 3x30 sec Exercise 9: aq: deep water hanging with 3# ankle weights and floaties to offload the hips x5 min, scissor kicks abd/add and fwd/bwd x2 min ea Assessment Assessment: Pt states she is a little sore today--5/10. Pain remains deep in her hip. Continued with aquatic exercise with good tolerance. Added walking lunges and addition hip stretching. Finished with deep well hanging for 15 min to off load hip Activity Tolerance Activity Tolerance: Patient tolerated treatment well Patient Education Patient Education: Aquatic exercise Pt verbalized/demonstrated good understanding: [x] Yes [] No, pt required further clarification. Post Treatment Pain: 5/10 Plan Plan Frequency: 2 Plan weeks: 4 Goals (Total # of Visits to Date: 5) Short Term Goals Time Frame for Short Term Goals: 2 weeks Short Term Goal 1: Patient will be initiated with a HEP-met Short Term Goal 2: Patient will tolerate 30 minutes of aquatic exercise to improve bilateral hip ROM and strength in an unloaded environment.-met Senior Living Goals Time Frame for Senior Living Goals : 4 weeks Senior Living Goal 1: Patient will be independent and compliant with a HEP Senior Living Goal 2: Patient will improve bilateral hip flexion ROM to >/= 110* and internal rotation ROM to >35* to decrease pain with ADLs. Telecommunication Systems Designer Goal 3: Patient will improve bilateral hip strength to >/= 4/5 in all major joints and planes Senior Living Goal 4: Patient will report decreased pain to < 6/10 at worst. Senior Living Goal 5: Patient will report 70% improvement in overall symptoms and function. Minutes Tracking: Time In: 1530 Time Out: 1630 Minutes: 60 Timed Code Treatment Minutes: 55 Minutes Sage Berg Date: 10/25/2024 documented in this encounter [facility] History of Present illness Narrative 10-15-2024 Nasrin Lara PT - 10/15/2024 4:15 PM EST Note Date & Type Note Facility 10-15-2024 History of Presen t illness Narrative [facility] Daily Note Patient: José Pritchard : 1975 CSN #: [id number] Referring Physician: Chiara Duque MD Date: 10/15/2024 Diagnosis: L hip pain, M25.552 Treatment Diagnosis: Bilateral hip pain, bilateral hip OA, possible REGINA Onset Date: 04/08/24 PT Insurance Information: [facility] services Total # of Visits Approved: 8 Per Physician Order Total # of Visits to Date: 3 No Show: 0 Canceled Appointment: 0 11/04/24 Plan of Care/Recert Due Pre-Treatment Pain: 1/10 Subjective: Pt reports mild soreness after last session that went away with stretching. She reports only 1/10 pain today. Exercises: Exercise 1: HEP: quadraped rocking, 5-10 reps twice per day, Bent knee fallouts with PPT 5-10 twice per day, bridge 2x6 once per day Exercise 2: Educated on reducing joint forces at the gym and not treadmill walking daily. Exercise 3: aq-- walking in all directions Exercise 4: aq--FSU at steps 15x yudith Exercise 5: aq--side kick, back kicks, butt kicks, marching 15x Exercise 6: aq--squats and lunges 15x Exercise 7: aq--semi deep back to wall pink board push downs and push/pulls x15 ea Exercise 8: aq--standing hip flexor stretching bi [id number] Exercise 9: aq: deep water hanging with 3# ankle weights and floaties to offload the hips x5 min, scissor kicks abd/add and fwd/bwd x2 min ea Assessment Assessment: Patient reported relief of pain with deep water hanging/relaxation today. Will continue to progress strength and ROM as tolerated. Activity Tolerance Activity Tolerance: Patient tolerated treatment well Patient Education Exercise technique and rationale Pt verbalized/demonstrated good understanding: [x] Yes [] No, pt required further clarification. Post Treatment Pain: 0/10 Plan Plan Frequency: 2 Plan weeks: 4 Goals (Total # of Visits to Date: 3) Short Term Goals Time Frame for Short Term Goals: 2 weeks Short Term Goal 1: Patient will be initiated with a HEP-met Short Term Goal 2: Patient will tolerate 30 minutes of aquatic exercise to improve bilateral hip ROM and strength in an unloaded environment.-met Telecommunication Systems Designer Goals Time Frame for Senior Living Goals : 4 weeks Telecommunication Systems Designer Goal 1: Patient will be independent and compliant with a HEP Telecommunication Systems Designer Goal 2: Patient will improve bilateral hip flexion ROM to >/= 110* and internal rotation ROM to >35* to decrease pain with ADLs. Senior Living Goal 3: Patient will improve bilateral hip strength to >/= 4/5 in all major joints and planes Senior Living Goal 4: Patient will report decreased pain to < 6/10 at worst. Telecommunication Systems Designer Goal 5: Patient will report 70% improvement in overall symptoms and function. Minutes Tracking: Time In: 1617 Time Out: 1656 Minutes: 39 Timed Code Treatment Minutes: 38 Minutes Nasrin Lara PT, DPT Date: 10/15/2024 documented in this encounter [facility] Telephone encounter Note 10-16-2023 Telephone Encounter - Genoveva Winters MD - 10/16/2023 1:34 PM EST Note Date & Type Note Facility 10-16-2023 Telephone encounter Note ok [facility] Healthcare Work Phone: Note 10-16-2023 Telephone Encounter [...] canceled. Hospital notified. documented in this encounter [facility] Healthcare Telephone encounter Note 10-16-2023 Telephone Encounter [...] up appt for 10/[address] [facility] Hospital Discharge instructions 07-05-2022 Discharge Instructions Note Date & Type Note Facility 07-05-2022 Hospital Discharg e instructions Bianca Bowden DO - 07/05/2022 11:01 PM EDT Follow-up with your BREWER HELPER regarding your right ovarian cyst. You will [...] tingling or weakness. documented in this encounter [employer] Phone: Evaluation note Note Date & Type Note Facility Evaluation note Diagnosis Fall from steps, initial encounter- Primary Cyst of right ovary Other and unspecified ovarian cyst Contusion of forehead, initial encounter documented in this encounter [employer] Phone: Summary Purpose Family History No Family [...] head on ground. Left side rib pain. Specialty Diagnoses / Procedures Referred By Contac t Referred To Contact Physical Therapy Diagnoses Pain in left hip Chiara Duque MD [address] [place] [address] [facility] Physical Therapy [address] [place] [id number] Referral ID Status Reason Start Date Expiration Date Visits Re quested Visits Authorized [id number] Open 10/01/2024 10/01/2025 1 1 Ordered Prescriptions (unrec ognized section and content) [...] at 2123, Until Fri07/05/22 at 212, Other 212 (Given - Provid er: Shae Richardson) Care Teams (unrecognized sec tion and content) Baggage Agent Relationship Specialty Start Date End Date Chiara Duque MD [address] [phone] PCP - General 09/27/15 Baggage Agent Relationship Specialty Start Date End Date Chiara Duque MD [address] [place] [id number] PCP - General Family Medicine 09/12/23 Baggage Agent Relationship Specialty Start Date End Date Chiara Duque MD [address] [place] [address] PCP - General 09/27/15 Baggage Agent Relationship Specialty Start Date End Date Chiara Duque MD [address] [place] [address] PCP - General 09/27/15 Baggage Agent Relationship Specialty Start Date End Date Chiara Duque MD [address] [place] [address] PCP - General 09/27/15 Baggage Agent Relationship Specialty Start Date End Date Chiara Duque MD [address] [place] [id number] PCP - General 09/27/15 Baggage Agent Relationship Specialty Start Date End Date Chiara Duque MD [address] [place], [place] [phone] PCP - General 09/27/15 INFORMATION SOURCE (unrecogn ized section and content) DATE CREATED AUTHOR 07/15/2022 [facility] DATE CREATED AUTHOR AUTHOR'S ORGANIZ ATION 09/24/[address] [facility] DATE CREATED AUTHOR AUTHOR'S ORGANIZ ATION 10/24/2023 [facility] DATE CREATED AUTHOR AUTHOR'S ORGANIZ ATION 10/29/2023 [facility] DATE CREATED AUTHOR AUTHOR'S ORGANIZ ATION 07/22/2024 [facility] DATE CREATED AUTHOR AUTHOR'S ORGANIZ ATION 11/10/2024 [facility] FOR RECORDS PERTAINING TO PATIENTS WHO ARE [...] BE BASED ON THE PRIMARY CLINICAL RECORDS. [facility]. provides no warranty or guarantee of the accuracy or completeness of information in this document.
[2024-12-24 06:46] LABS: Basophils Percent Auto 0.8 % (0.2-2.0); Eosinophils Absolute Auto 0.1 10^3/uL (0.0-0.7); Eosinophils Percent Auto 2.3 % (0.9-7.0); Hematocrit 40.9 % (36.0-48.0); Hemoglobin 13.7 g/dL (12.0-16.0); Immature Granulocytes Abs Auto 0.01 10^3/uL (0.00-0.03); Immature Granulocytes Pct Auto 0.2 % (0.0-0.5); Lymphocytes Absolute Auto 1.3 10^3/uL (1.2-3.8); Lymphocytes Percent Auto 26.4 % (20.5-60.0); Mean Corpuscular HGB Conc 33.5 g/dL (29.9-35.2); Mean Corpuscular Hemoglobin 31.4 pg (26.7-34.0); Mean Corpuscular Volume 93.6 fL (81.0-99.0); Mean Platelet Volume 10.4 fL (9.5-13.5); Monocytes Absolute Auto 0.4 10^3/uL (0.3-0.8); Monocytes Percent Auto 7.6 % (1.7-12.0); Neutrophils Percent Auto 62.7 % (43.0-75.0); Platelet Count 207 10^3/uL (150-450); Red Blood Count 4.37 10^6/uL (4.20-5.40); Red Cell Distribution Width 12.9 % (11.0-15.0); White Blood Count 4.7 10^3/uL (4.0-11.0)
[2024-12-24 07:08] LABS: Estimated Average Glucose 108 mg/dL; Glycohemoglobin A1C 5.4 % (4.5-6.2)
[2024-12-24 07:20] LABS: Alanine Aminotransferase 42 U/L (14-59); Albumin Globulin Ratio 1.4; Albumin Level 3.9 g/dL (3.4-5.0); Alkaline Phosphatase 59 U/L (46-116); Anion Gap 9.5; Aspartate Amino Transferase 23 U/L (15-37); BUN Creatinine Ratio 23.8; Bilirubin Total 0.4 mg/dL (0.2-1.0); Calcium 8.8 mg/dL (8.5-10.1); Carbon Dioxide 28.9 mmol/L (21.0-32.0); Chloride 103 mmol/L (98-107); Chol HDL Ratio 2.5; Cholesterol 151 mg/dL (<=200); Estimated GFR (African America >60 (>=60 mL/min/1.73m^2); Estimated GFR (Non-African Ame >60 (>=60 mL/min/1.73m^2); Globulin 2.8 g/dL; Glucose 110 mg/dL (74-106); HDL Cholesterol 61 mg/dL (40-60); Potassium 4.4 mmol/L (3.5-5.1); Sodium 137 mmol/L (136-145); Thyroid Stimulating Hormone 3.172 uIU/mL (0.358-3.740); Total Protein 6.7 g/dL (6.4-8.2); Triglycerides 88 mg/dL (<=150); VLDL CHOLESTEROL 17.6 mg/dL
== END 2024-12-24 06:33 | disposition home or self-care (01) ==
LOC: LAB 06:34
PROVIDERS: PCP Family Medicine; Visit Provider Family Medicine
DX: Z00.00 Encounter for general adult medical examination without abnormal findings (principal); R73.09 Other abnormal glucose; E03.9 Hypothyroidism, unspecified
CPT/HCPCS: 36415; 80053; 80061; 83036; 84436; 84443; 84481; 85025

== ENCOUNTER 2025-01-27 07:23 | Outpatient (OUT) | payer OTHER, SELFPAY ==
--- OUTSIDE RECORDS SUMMARY | 2025-01-27 07:27 | XMS_ITS | CCD ---
Author Organization [facility] Care Team Providers Care Record Retrieval Specialist Name Role Phone Chiara Duque MD Primary Care Provider [phone] JAMA, DR GUADARRAMA Admitting Unavailable JAMA, DR GUADARRAMA Attending Unavailable JAMA, DR GUADARRAMA Primary Care Unavailable JAMA, DR GUADARRAMA Admitting Unavailable HOY, DR GUADARRAMA Attending Unavailable ASHANTIY, DR GUADARRAMA Primary Care Unavailable JAMA, DR GUADARRAMA Admitting Unavailable JAMA, DR GUADARRAMA Attending Unavailable JAMA, DR GUADARRAMA Primary Care Unavailable JAMA, DR GUADARRAMA Consulting Unavailable GENOVEVA WINTERS Attending Unavailable SARA DUQUELAS Sheyla Referring Unavailable Chiara Duque MD Primary Care Provider [phone] CHIARA DUQUE Referring Unavailable HOY, CHIARA M Primary Care Unavailable SHOLEY, ZACKARY M Attending Unavailable SHOLEY, ZACKARY M Referring Unavailable HOY, CHIARA M Primary Care Unavailable SHOLEY, ZACKARY M Attending Unavailable GLENN, ZACKARY M Referring Unavailable HOY, CHIARA M Primary Care Unavailable RAHEEM, DARBY S Referring Unavailable HOY, CHIARA M [...] Unavailable Chiara Duque MD Primary Care Provider [phone] CHIARA DUQUE Referring Unavailable HOY, CHIARA M Primary Care Unavailable HOY, CHIARA M Referring Unavailable HOY, CHIARA M Primary Care Unavailable HOY, CHIARA M Referring Unavailable HOY, CHIARA M Primary Care Unavailable HOY, CHIARA M Primary Care Unavailable HOY, CHIARA M Referring Unavailable HOY, CHIARA M Referring Unavailable HOY, CHIARA M Primary Care Unavailable HOY, CHIARA M Referring Unavailable HOY, CHIARA M Primary Care Unavailable HOY, CHIARA M Referring Unavailable HOY, CHIARA M Primary Care Unavailable Chiara Duque MD Primary Care Provider [phone] Chiara Duque MD Attending Provider Chiara Duque Attending Unavailable Hoy, Chiara M Admitting Unavailable Hoy, Chiara M Primary Care Unavailable Hoy, Chiara M Attending Unavailable Hoy, Chiara M Admitting Unavailable Hoy, Chiara M Primary Care Unavailable Medications Current Medications [...] by mouth in the morning. 0 Active 12 hr hyoscyamine sulfate 0.375 mg extended release oral tablet (10 sources) Start: 03-26-2019 take 1 tablet by mouth every twelve hours Hyoscyamine Sulfate 0.375 mg tablet extended release 12 hr Active 1 TAB PO As Directed March 26, 2019 12:00am take 1 tablet by palmira th twice daily as needed hyoscyamine (ANASPAZ;LEVSIN) 125 MCG tab let Take 125 mcg by mouth 2 times [...] for Pain 21 tablet 0 07/05/2022 Active L. Acidophilus/Bifid. Animalis (Probiotic) 5 billion cell Capsule, Sprinkle (1 source) Start: 03-26-2019 L. Acidophilus/Bif id. Animalis (Probiotic) 5 billion cell Capsule, Sprinkle Active 1 TAB PO Daily March 26, 2019 12:00am lisinopril 20 mg oral tablet (9 sources) Angiotensin Converting Enzyme Inhibitor take 1 tablet by mouth once daily lisinopril (PRINIVIL;ZESTR IL) 20 MG tablet Take 20 mg by mouth daily Active Loratadine (1 source) Loratadine (CLARITIN PO) Take by mouth daily 0 Active 12 hr loratadine 5 mg / pseudoephedrine sulfate 120 mg extended release oral tablet (1 source) alpha-Adrenergic Agonist Start: 03-26-2019 take 1 tablet by mouth once, then take 1 tablet by mouth every twelve hours Loratadine-Pseu doephedrine (Claritin-D 12 Hour) 5-120 mg Tablet Extended Release 12 Hr Active 1 TAB PO As Directed March 26, 2019 12:00am Multiple Vitamins-Minerals (EMERGEN-C FIVE PO) (9 sources) Multiple Vitamins-Minera ls (EMERGEN-C FIVE PO) Take by mouth Active [...] Onset: 09-18-2023 09-18-2023 Episodic Other gastrointestinal disorders (2 sources) Irritable bowel syndrome; Translations: [Irritable bowel syndrome without diarrhea] Onset: 09-18-2023 09-18-2023 Chronic Comment on above: Problem List clean-u p per request of Phys. EHR Cmte Other non-traumatic joint disorders (2 sources) Pain in left hip; Translations: [Pain in left hip] Onset: 10-18-2024 Episodic Other non-traumatic joint disorders (1 source) Pain in right hip; Translations: [Pain in right hip] Onset: 01-18-2025 Episodic Other screening for suspected conditions (not mental disorders or infectious disease) (5 sources) Encounter for screening for malignant neoplasm of vagina; Translations: [Other abnormal and inconclusive findings on diagnostic imaging of breast] Onset: 09-19-2023 08-20-2023 Episodic Comment on above: Problem List clean-u p per request of Phys. EHR Cmte Other upper respiratory infections (1 source) Chronic sinusitis; Translations: [Chronic sinusitis, unspecified] Onset: 09-18-2023 09-18-2023 Chronic Ovarian cyst (1 source) Cyst of right ovary; Translations: [Unspecified ovarian cyst, right side] Episodic Peripheral and visceral atherosclerosis (1 source) Intermittent 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; Translations: [Atherosclerosis of [place] arteries of extremities with intermittent claudication, bilateral legs] Onset: 09-18-2023 09-18-2023 Chronic Superficial injury; contusion (1 source) Contusion of forehead; Translations: [Contusion of other part of head, initial encounter] Episodic Unclassified (1 source) Annual Exam Onset: 10-27-2023 Results Test Name Value Interpretation Reference Range Facility MR hip RT arthrogram w conon 01-18-2025 MR hip RT arthrogram w con [facility] [place] [address] [place] [address] MRI Report Signed Patient: José Pritchard MR#: [id number] 707 : 1975 Acct:[id number] Age/Sex: 49 / F ADM Date: 01/18/25 Loc: MR Room: Type: [facility] Attending Dr: Chiara Duque MD Copies to: Chiara Duque MD Ordering Provider: Chiara Duque MD Date of Service: 01/18/25 MR/MR hip RT arthrogram w con: M25.551 EXAMINATION: MRI OF THE RIGHT HIP CLINICAL HISTORY: Right hip joint clicking with pain for 6 months. COMPARISON: None TECHNIQUE: Multiecho, multiplanar imaging was performed with use of an extremity coil. Intra- articular contrast was administered. FINDINGS: Bones/Joint: No fracture. No avascular necrosis. No bone marrow edema. No bony destructive lesion. Mild degenerative changes particularly involving the femoral head. Labrum: Tear Involving the anterior/superior labrum. Muscles: Normal Soft tissues: Normal Pelvic contents: 4.8 cm right ovarian cyst. There is adjacent small amount of free fluid. MR/MR hip RT arthrogram w con IMPRESSION: LABRAL TEAR INVOLVING THE ANTERIOR/SUPERIOR LABRUM. NO FRACTURE, AVASCULAR NECROSIS OR BONE MARROW EDEMA.. THERE IS ASSOCIATED MILD DEGENERATIVE CHANGE. 4.8 CM RIGHT OVARIAN CYST. FURTHER EVALUATION WITH ULTRASOUND IS SUGGESTED. Impression dictated by: Juan Antonio Brothers Jr., D.O. 01/18/2025 9:41 AM Dictation Location: [place] [address] Transcribed By: [facility] 01/18/25 0941 Dictated By: Juan Antonio Brothers Jr, DO 01/18/2522 Signed By: 01/18/25 0941 Normal [facility] XR hip RT 1Von 01-18-2025 XR hip RT 1V [facility] [place] [address] Fluoroscopy Report Signed Patient: José Pritchard MR#: [id number] : 1975 Acct:[id number] Age/Sex: 49 / F ADM Date: 01/18/25 Loc: MR Room: Type: [facility] Attending Dr: Chiara Duque MD Copies to: Chiara Duque MD Ordering Provider: Chiara Duque MD Date of Service: 01/18/25 FL/FL guided needle placement: RT HIP ARTHROGRAM ([id number]) XR/XR hip RT 1V: RT HIP ARTHROGRAM Fluoroscopically guided right hip arthrogram. Reason for exam: Right hip joint clicking and pain since July. FINDINGS: After questions were answered, informed consent was obtained. The patient was placed supine on the fluoroscopic table and the right hip was localized and prepped in the normal sterile fashion. 1% lidocaine was utilized for local anesthesia. Using ultrasound guidance, a 20-gauge spinal needle was advanced into the right hip and a combination of 10 mL of saline, 10 mL of Isovue a 0.1 mL of ProHance was then injected without difficulty. The needle was then withdrawn and hemostasis was achieved. The patient was sent to the MRI suite in stable condition. Cumulative Air Kerma in mGy: 57.83.mGy FL/FL guided needle placement IMPRESSION: Successful fluoroscopically guided right hip arthrogram. Impression dictated by: Juan Antonio Brothers Jr., DRubén 01/18/2025 9:43 AM Dictation Location: [place] [address] Transcribed By: [facility] 01/18/2543 Dictated By: Juan Antonio Brothers Jr, DO 01/18/25 0940 Signed By: 01/18/2543 Normal [facility] MAMM DIAGNOSTIC UNILAT RT W CADon 07-20-2024 MAMM DIAGNOSTIC UNILAT RT W CAD MAMM DIAGNOSTIC UNILAT RT W CAD JOSÉ PRITCHARD 1975 [id number] EXAM: MAMM DIAGNOSTIC UNILAT RT W CAD, [...] given the results before leaving the department. Finalized by Gera Ibarra DO on 07/20/2024 2:53 PM 2 b MAMM 1 YR Normal [facility] MAMM DIAGNOSTIC UNILAT RT W CADon 01-13-2024 [...] given the results before leaving the department. Finalized by Cosmo Rawls MD on 01/13/2024 3:25 PM 3 b MAMM 6 MONTH Normal [facility] US BREAST RT LIMITEDon 01-12 US BREAST RT LIMITED US BREAST RT LIMITE D EXAM: MAMM DIAGNOSTIC UNILAT RT W CAD, [...] given the results before leaving the department. Finalized by Cosmo Rawls MD on 01/13/2024 3:25 PM 3 b MAMM 6 MONTH Normal [facility] Cytologyon 10-27-2023 Cytology Normal [facility] Comment on above: Result Comment: [facility] [address] [place] [address] Gynecologic Cytology Consultation Patient Name:JOSÉ PRITCHARD:1975 (Age: 48)Gender:FTaken:4Reported:11/05/2023hysician(s):ALIRIO MACIEL C.N.MJacinto ([phone])Copy To: Rec. #:[id number]: #[id number] Final Cytologic Interpretation ThinPrep Pap Test (Cervical): Satisfactory for evaluation. A transformation zone component is present. NEGATIVE FOR INTRAEPITHELIAL LESION OR MALIGNANCY. jja/11/05/2023 [email or web address], [address] [place] [address], License number: [id number]. Electronically Signed Out By RICKI Dubose(ASCP) Date of Last Menstrual Period: (None Given) Other Clinical Conditions: Z01.419 Ar Manager exam wo/abn findings Z12.72 Screeing for malignant neoplasm of vagina Source of Specimen ThinPrep Pap Test (Cervical) Thin Prep Pap ([employer] CLERK) Fee Code(s): G0145 HIGH RISK HPV W/GENOon 10-27 HPV 31+33+35+39+45+51+52+5 6+58+59+66+68 DNA ANDREE+probe Ql (Cvx) HPV SPECIMEN TYPE ThinPrep HPV 16 Negative (qualifier value) HPV 18 Negative (qualifier value) OTHER HIGH RISK HPV Negative (qualifier value) HPV types 31,33,35,39,45,52,56 ,58,59,66 and 68 DNA were undetectable. Normal [facility] Comment on above: Performed By: #### 7 1431-1 #### [facility] ([id number]) [address] [place] [address] [facility] ([id number]) [address] [place] [address] Physician Orderon 10-22-2023 Physician Order [id number] #1.00TIFF Normal [facility] MAMM DIAGNOSTIC UNILAT RT W CADon 10-14-2023 [...] given the results before leaving the department. Finalized by Gera Ibarra DO on 10/14/2023 3:54 PM 3 b MAMM 3 MONTH Normal [facility] US BREAST RT LIMITEDon 10-14 US BREAST RT LIMITED US BREAST RT LIMITE D EXAM: US BREAST RT LIMITED, 10/14/2023 3:13 PM CLINICAL INDICATIONS:Mass of right breast, unspecified quadrant; Abnormality of right breast on screening mammogram. COMPARISON: Recent screening study and additional comparison 2018 and 2021 TECHNIQUE: Multiple real-time adlton-scale images of the right breast were performed. [...] given the results before leaving the department Finalized by Gera Ibarra DO on 10/14/2023 3:55 PM 3 US 3 MONTH Normal [facility] Physician Orderon 09-23-2023 Physician Order [id number] #1.00TIFF Normal [facility] MAMM SCREENING BILATERAL W C trench digger helper 09-19-2023 MAMM SCREENING BILATERAL W CAD MAMM [...] additional imaging evaluation. Recommendation: Additional imaging required. Finalized by Jackie Holden MD on 09/19/2023 4:03 PM 0A b ADDITIONAL I Normal [facility] Basic Metabolic Panelon - Anion gap [Moles/Vol] 11 mmol/L 9 - 17 mmol/L [facility] Calcium [Mass/Vol] 8.9 mg/dL 8.6 - 10. 4 mg/dL [facility] Chloride [Moles/Vol] 107 mmol/L 98 - 10 7 mmol/L [facility] CO2 [Moles/Vol] 24 mmol/L 20 - 31 mmol/L [facility] Creatinine [Mass/Vol] 0.71 mg/dL 0.50 - 0.90 mg/dL [facility] GFR/1.73 sq M.predicted MDRD (S/P/Bld) [Vol rate/Area] - PINF [facility] Comment on above: Effective Jun 10, 2022 [...] 117 mg/dL High 70 - 99 mg/dL [facility] Interpretation and review of laboratory results Abnormal [facility] Potassium [Moles/Vol] 4.0 mmol/L 3.7 - 5.3 mmol/L [facility] Sodium [Moles/Vol] 142 mmol/L 135 - 144 mmol/L [facility] Urea nitrogen (BldV) [Mass/Vol] 18 mg/dL 6 - 20 mg/dL [facility] Urea nitrogen/Creatinine (Bld) [Mass ratio] 25 High 9 - 20 [facility] CBCon 07-05-2022 Hematocrit (Bld) [Volume fraction] 41.5 % 36.3 - 47.1 % [facility] Hemoglobin (Bld) [Mass/Vol] 14.1 g/dL 11.9 - 15.1 g/dL [facility] MCH (RBC) [Entitic mass] 32.0 pg 25.2 - 33.5 pg [facility] MCHC (RBC) [Mass/Vol] 34.0 g/dL 28.4 - 34.8 g/dL [facility] MCV (RBC) [Entitic vol] 94.3 fL 82.6 - 102.9 fL [facility] NRBC Automated 0.0 0.0 per 100 WBC [facility] Platelet distribution width (Bld) [Ratio] 12.6 % 11.8 - 14.4 % [facility] Platelet mean volume (Bld) [Entitic vol] 10.4 fL 8.1 - 13.5 fL [facility] Platelets (Bld) [#/Vol] 173 10*3/uL [facility] RBC (Bld) [#/Vol] 4.40 10*6/uL 3.95 - 5.1 1 m/uL [facility] WBC (Bld) [#/Vol] 5.6 10*3/uL [facility] CT CERVICAL SPINE WO CONTRAS Ton 07-05-2022 Radiology Study observation (narrative) [facility] Work Phone: CT CHEST ABDOMEN PELVIS W CO NTRAST Additional Contrast? Noneon 07-05-2022 Radiology Study observation (narrative) [facility] Work Phone: CT Head WO Contraston 2021 Radiology Study observation (narrative) [facility] Work Phone: Ethanolon 07-05-2022 Ethanol [Mass/Vol] 233 mg/dL High NINF - 10 mg/dL [facility] Ethanol percent 0.233 % High NINF - 0.010 % [facility] Interpretation and review of laboratory results Abnormal [facility] No Panel Informationon 07-[address]: No [...] further evaluation pelvic ultrasound examination is recommended. [facility] RIS CONSOLIDATED EXAMINATION: CT OF THE [...] not a suspected or confirmed emergency medical condition->Emergency Medical Condition (MA) Is the patient ?->No [...] concerning lytic or sclerotic lesions are noted. [facility] RIS Uvaldo Rivera MD - 07/05/2022 EXAMINATION: CT OF THE [...] not a suspected or confirmed emergency medical condition->Emergency Medical Condition (MA) Is the patient ?->No [...] further evaluation pelvic ultrasound examination is recommended. [employer] [facility] Work Phone: No Panel InformationOrdered By: Uvaldo Reddy on 07-05-2022 [facility] [employer] Work Phone: CBC AUTO DIFFon 09-15-2021 BASO # 0.0 103/ul Normal 0.0-0.1 [facility] Comment on above: Performed By: #### C BC #### [facility] [address] [place] [address] Dr. Lakshmi Galvez Basophils/100 WBC (Bld) 1.0 % Normal 0.2-2.0 [facility] Comment on above: Performed By: #### C BC #### [facility] [address] [place] [address] Dr. Lakshmi Galvez EO # 0.2 103/ul Normal 0.0-0.7 [facility] Comment on above: Performed By: #### C BC #### [facility] [address] [place] [address] Dr. Lakshmi Galvez Eosinophils/100 WBC (Bld) 3.9 % Normal 0.9-7.0 [facility] Comment on above: Performed By: #### C BC #### [facility] [address] [place] [address] Dr. Lakshmi Galvez Erythrocyte distribution width (RBC) [Ratio] 12.4 % Normal 11.0-15.0 [facility] Comment on above: Performed By: #### C BC #### [facility] [address] [place] [address] Dr. Lakshmi Galvez Hematocrit (Bld) [Volume fraction] 41.5 % Normal 36.0-48.0 [facility] Comment on above: Performed By: #### C BC #### [facility] [address] [place] [address] Dr. Lakshmi Galvez Hemoglobin (Bld) [Mass/Vol] 13.9 g/dL Normal 12.0-16.0 [facility] Comment on above: Performed By: #### C BC #### [facility] [address] [place] [address] Dr. Lakshmi Galvez IG # 0.01 10e3/ul Normal 0.00-0.03 [facility] Comment on above: Performed By: #### C BC #### [facility] [address] [place] [address] Dr. Lakshmi Galvez IG % 0.2 % Normal 0.0-0.5 [facility] Comment on above: Performed By: #### C BC #### [facility] [address] [place] [address] Dr. Lakshmi Galvez LYMPH # 1.5 103/ul Normal 1.2-3.8 [facility] Comment on above: Performed By: #### C BC #### [facility] [address] [place] [address] Dr. Lakshmi Galvez Lymphocytes/100 WBC (Bld) 36.6 % Normal 20.5-60.0 [facility] Comment on above: Performed By: #### C BC #### [facility] [address] [place] [address] Dr. Lakshmi Galvez MANUAL DIFF REQ NO Normal [facility] Comment on above: Performed By: #### C BC #### [facility] [address] [place] [address] Dr. Lakshmi Galvez MCH (RBC) [Entitic mass] 31.2 pg Normal 26.7-34.0 [facility] Comment on above: Performed By: #### C BC #### [facility] [address] [place] [address] Dr. Lakshmi Galvez MCHC (RBC) [Mass/Vol] 33.5 g/dL Normal 29.9-35.2 [facility] Comment on above: Performed By: #### C BC #### [facility] [address] [place] [address] Dr. Lakshmi Galvez MCV (RBC) [Entitic vol] 93.0 fL Normal 81.0-99.0 [facility] Comment on above: Performed By: #### C BC #### [facility] [address] [place] [address] Dr. Lakshmi Galvez MONO # 0.4 103/ul Normal 0.3-0.8 [facility] Comment on above: Performed By: #### C BC #### [facility] [address] [place] [address] Dr. Lakshmi Galvez Monocytes/100 WBC (Bld) 9.0 % Normal 1.7-12.0 [facility] Comment on above: Performed By: #### C BC #### [facility] [address] [place] [address] Dr. Lakshmi Galvez NEUT # 2.0 103/ul Normal 1.4-6.5 [facility] Comment on above: Performed By: #### C BC #### [facility] [address] [place] [address] Dr. Lakshmi Galvez Neutrophils/100 WBC (Bld) 49.3 % Normal 43.0-75.0 [facility] Comment on above: Performed By: #### C BC #### [facility] [address] [place] [address] Dr. Lakshmi Galvez Platelet mean volume (Bld) [Entitic vol] 10.5 fL Normal 9.5-13.5 [facility] Comment on above: Performed By: #### C BC #### [facility] [address] [place] [address] Dr. Lakshmi Galvez PLT 202 103/ul Normal 150-450 [facility] Comment on above: Performed By: #### C BC #### [facility] [address] [place] [address] Dr. Lakshmi Galvez RBC 4.46 106/ul Normal 4.20-5.40 [facility] Comment on above: Performed By: #### C BC #### [facility] [address] [place] [address] Dr. Lakshmi Galvez WBC 4.1 103/ul Normal 4.0-11.0 [facility] Comment on above: Performed By: #### C BC #### [facility] [address] [place] [address] [address] Lakshmi Galvez FREE THYROXINE INDEX T7on FTI 2.28 Normal [facility] Comment on above: Performed By: #### L IPID, CMP, T7, TSH #### [facility] [address] [place] [address] Dr. Lakshmi Galvez T3U 35.0 % Normal 23.5-40.5 [facility] Comment on above: Performed By: #### L IPID, CMP, T7, TSH #### [facility] [address] [place] [address] [address] Lakshmi Galvez T4 [Mass/Vol] 6.50 ug/dL Normal 5.53-11.00 [facility] Comment on above: Performed By: #### L IPID, CMP, T7, TSH #### [facility] [address] [place] [address] [address] Lakshmi Galvez GLYCOHEMOGLOBIN A1Con 2021 ADA RECOMMENDATION ADA THERAPEUTIC TARGET 6.0 - 7.0 ACTION SUGGESTED > 7.0 Normal [facility] Comment on above: Performed By: #### A 1C #### [facility] [address] [place] [address] Dr. Lakshmi Galvez Glucose [Mass/Vol] 111 mg/dL Normal [facility] Comment on above: Performed By: #### A 1C #### [facility] [address] [place] [address] Dr. Lakshmi Galvez HbA1c (Bld) [Mass fraction] 5.5 % Normal <=6.0 [facility] Comment on above: Performed By: #### A 1C #### [facility] [address] [place] [address] Dr. Lakshmi Galvez LIPID PROFILEon 09-15-2021 CHOL-HDL RATIO NORM SEE BELOW Normal [facility] Comment on above: Result Comment: 3.3 - 4.4 LOW RISK 4.4 - 7.1 AVERAGE RISK 7.1 - 11.0 MODERATE RISK >11.0 HIGH RISK Performed By: #### L IPID, CMP, T7, TSH #### [facility] [address] [place] [address] [address] Lakshmi Galvez Cholesterol [Mass/Vol] 237 mg/dL Critically high <=200 [facility] Comment on above: Performed By: #### L IPID, CMP, T7, TSH #### [facility] [address] [place] [address] [address] Lakshmi Galvez Cholesterol in HDL [Mass/Vol] 50 mg/dL Normal [facility] Comment on above: Performed By: #### L IPID, CMP, T7, TSH #### [facility] [address] [place] [address] [address] Lakshmi Galvez Cholesterol in LDL [Mass/Vol] 144.8 mg/dL Normal [facility] Comment on above: Performed By: #### L IPID, CMP, T7, TSH #### [facility] [address] [place] [address] [address] Lakshmi Galvez Cholesterol.total/Chol esterol in HDL [Mass ratio] 4.7 {ratio} Normal [facility] Comment on above: Performed By: #### L IPID, CMP, T7, TSH #### [facility] [address] [place] [address] [address] Lakshmi Galvez HDL NORMAL > or = 60 mg/dl - LOW CARDIOVASCULAR RISK <40 mg/dl - HIGH CARDIOVASCULAR RISK Normal [facility] Comment on above: Performed By: #### L IPID, CMP, T7, TSH #### [facility] [address] [place] [address] [address] Lakshmi Galvez LDL CALC NORMAL SEE BELOW Normal [facility] Comment on above: Result Comment: <100 mg/dl OPTIMAL 100 - 129 mg/dl NEAR OR ABOVE OPTIMAL 130 - 159 mg/dl BORDERLINE HIGH 160 - 189 mg/dl HIGH >190 mg/dl VERY HIGH Performed By: #### L IPID, CMP, T7, TSH #### [facility] [address] [place] [address] [address] Lakshmi Galvez Triglyceride [Mass/Vol] 211 mg/dL Critically high <=150 [facility] Comment on above: Performed By: #### L IPID, CMP, T7, TSH #### [facility] [address] [place] [address] Dr. Lakshmi Galvez VLDL CALC 42.2 mg/dL Normal [facility] Comment on above: Performed By: #### L IPID, CMP, T7, TSH #### [facility] [address] [place] [address] Dr. Lakshmi Galvez PROF 14(COMP METB)on 022 Albumin [Mass/Vol] 3.9 g/dL Normal 3.5-5.0 [facility] Comment on above: Performed By: #### L IPID, CMP, T7, TSH #### [facility] [address] [place] [address] Dr. Lakshmi Galvez Albumin/Globulin [Mass ratio] 1.1 {ratio} Normal [facility] Comment on above: Performed By: #### L IPID, CMP, T7, TSH #### [facility] [address] [place] [address] Dr. Lakshmi Galvez ALP [Catalytic activity/Vol] 55 U/L Normal 38-126 [facility] Comment on above: Performed By: #### L IPID, CMP, T7, TSH #### [facility] [address] [place] [address] Dr. Lakshmi Galvez ALT [Catalytic activity/Vol] 53 U/L Critically high 9-52 [facility] Comment on above: Performed By: #### L IPID, CMP, T7, TSH #### [facility] [address] [place] [address] Dr. Lakshmi Galvez Anion gap [Moles/Vol] 13.0 mmol/L Normal [facility] Comment on above: Performed By: #### L IPID, CMP, T7, TSH #### [facility] [address] [place] [address] Dr. Lakshmi Galvez AST [Catalytic activity/Vol] 23 U/L Normal 14-36 [facility] Comment on above: Performed By: #### L IPID, CMP, T7, TSH #### [facility] [address] [place] [address] Dr. Lakshmi Galvez Bilirubin [Mass/Vol] 0.5 mg/dL Normal 0.2-1.3 [facility] Comment on above: Performed By: #### L IPID, CMP, T7, TSH #### [facility] [address] [address] [address] Lakshmi Galvez Calcium [Mass/Vol] 8.8 mg/dL Normal 8.4-10.2 [facility] Comment on above: Performed By: #### L IPID, CMP, T7, TSH #### [facility] [address] [place] [address] Dr. Lakshmi Galvez Chloride [Moles/Vol] 101 mmol/L Normal 98-107 [facility] Comment on above: Performed By: #### L IPID, CMP, T7, TSH #### [facility] [address] [place] [address] Dr. Lakshmi Galvez CO2 [Moles/Vol] 26.9 mmol/L Normal 22.0-30.0 [facility] Comment on above: Performed By: #### L IPID, CMP, T7, TSH #### [facility] [address] [place] [address] Dr. Lakshmi Galvez Creatinine [Mass/Vol] 0.65 mg/dL Normal 0.52-1.04 [facility] Comment on above: Performed By: #### L IPID, CMP, T7, TSH #### [facility] [address] [place] [address] Dr. Lakshmi Galvez EGFR-AF NIGERIAN >60 Normal >=60 [facility] Comment on above: Performed By: #### L IPID, CMP, T7, TSH #### [facility] [address] [place] [address] Dr. Lakshmi Galvez EGFR-NON AF NIGERIAN >60 Normal >=60 [facility] Comment on above: Performed By: #### L IPID, CMP, T7, TSH #### [facility] [address] [address] [address] Lakshmi Galvez Globulin (S) [Mass/Vol] 3.4 g/dL Normal [facility] Comment on above: Performed By: #### L IPID, CMP, T7, TSH #### [facility] [address] [address] [address] Lakshmi Galvez Glucose [Mass/Vol] 108 mg/dL Critically high 74-106 T [facility] Comment on above: Performed By: #### L IPID, CMP, T7, TSH #### [facility] [address] [place] [address] Dr. Lakshmi Galvez Potassium [Moles/Vol] 3.9 mmol/L Normal 3.4-5.0 [facility] Comment on above: Performed By: #### L IPID, CMP, T7, TSH #### [facility] [address] [address] [address] Lakshmi Galvez Protein [Mass/Vol] 7.3 g/dL Normal 6.1-8.2 [facility] Comment on above: Performed By: #### L IPID, CMP, T7, TSH #### [facility] [address] [place] [address] Dr. Lakshmi Galvez Sodium [Moles/Vol] 137 mmol/L Normal 137-145 [facility] Comment on above: Performed By: #### L IPID, CMP, T7, TSH #### [facility] [address] [place] [address] Dr. Lakshmi Galvez Urea nitrogen [Mass/Vol] 11.0 mg/dL Normal 7.0-17.0 [facility] Comment on above: Performed By: #### L IPID, CMP, T7, TSH #### [facility] [address] [place] [address] Dr. Lakshmi Galvez Urea nitrogen/Creatinine [Mass ratio] 16.9 mg/mg Normal [facility] Comment on above: Performed By: #### L IPID, CMP, T7, TSH #### [facility] [address] [place] [address] Dr. Lakshmi Galvez TSHon 09-15-2021 TSH 3.650 uIU/mL Normal 0.470-4.680 [facility] Comment on above: Performed By: #### L IPID, CMP, T7, TSH #### [facility] [id number] Lakshmi Galvez TSH RANGE SEE BELOW Normal [facility] Comment on above: Result Comment: <0.3 4 UIU/ml HYPERTHYROID 0.34-5.60 UIU/ml EUTHYROID >5.60 UIU/ml HYPOTHYROID Performed By: #### L IPID, CMP, T7, TSH #### [facility] [phone] Lakshmi Galvez Vital Signs Date Time Vital Sign Value Performing Clinician Faci lity 07-05-2022 20:12-0400 Body height 170.2 cm Bianca Bowden DO Work Phone: [facility] [employer] 07-05-2022 20:12-0400 Body mass index (BMI) [Ratio] 28.82 kg/m2 Bianca Bowden DO Work Phone: [employer] 07-05-2022 20:12-0400 Body weight 83.46 kg Bianca Bowden DO Work Phone: [employer] 07-05-2022 20:02-0400 Body temperature 97.59 [degF] Bianca Bowden DO Work Phone: [facility] [employer] 07-05-2022 20:02-0400 Diastolic blood pressure 68 mm[Hg] Bianca Bowden DO Work Phone: [employer] 07-05-2022 20:02-0400 Heart rate 79 /min Bianca Bowden DO Work Phone: [facility] [employer] 07-05-2022 20:02-0400 Respiratory rate 18 /min Bianca Bowden DO Work Phone: [employer] 07-05-2022 20:02-0400 SaO2% (BldA) [Mass fraction] 93 % Bianca Bowden DO Work Phone: [employer] 07-05-2022 20:02-0400 Systolic blood pressure 126 mm[Hg] Bianca Bowden DO Work Phone: [facility] Encounters Encounter Date Encounter Type Care Provider Facility Start: 01-18-2025 End: 01-18-2025 ambulatory Chiara Duque Facility:[facility] Start: 12-29-2024 End: 12-29-2024 Patient encounter procedure Chiara Duque MD Work Phone: [facility] [address] [facility] Work Phone: Start: 12-29-2024 End: 12-29-2024 ambulatory Chiara Duque MD Work Phone: [facility] Work Phone: Start: 11-08-2024 End: 11-08-2024 ambulatory [facility] Posadas [facility] Start: 11-08-2024 End: 11-08-2024 Subsequent hospital visit by physician Nasrin Lara PT [facility] Physical Therapy Comment on above: Arrived Start: 11-01-2024 End: 11-01-2024 Subsequent hospital visit by physician Hailey Parks PT [facility] Start: 10-27-2024 End: 10-27-2024 ambulatory CHIARA Posadas [facility] Start: 10-27-2024 End: 10-27-2024 Subsequent hospital visit by physician Sage Hart [facility] Physical Therapy Comment on above: Arrived Start: 10-25-2024 End: 10-25-2024 ambulatory CHIARA Posadas [facility] Start: 10-25-2024 End: 10-25-2024 Subsequent hospital visit by physician Sage Hart [facility] Physical Therapy Comment on above: Arrived Start: 10-18-2024 End: 10-18-2024 ambulatory CHIARA Posadas [facility] Start: 10-18-2024 End: 10-18-2024 Subsequent hospital visit by physician Kristin Ramos PTA [facility] Physical Therapy Comment on above: Arrived Start: 10-15-2024 End: 10-15-2024 ambulatory CHIARA Posadas [facility] Start: 10-15-2024 End: 10-15-2024 Subsequent hospital visit by physician Nasrin Lara PT [facility] Physical Therapy Comment on above: Arrived Start: 10-13-2024 End: 10-13-2024 ambulatory CHIARA DUQUE [facility] Start: 10-13-2024 End: 10-13-2024 Subsequent hospital visit by physician Sage Hart [facility] Physical Therapy Comment on above: Arrived Start: 10-07-2024 End: 10-07-2024 [facility] Start: 10-07-2024 End: 10-07-2024 Subsequent hospital visit by physician Hailey Parks PT [facility] Physical Therapy Comment on above: Arrived Start: 07-20-2024 End: 07-20-2024 ambulatory [facility] Start: 01-13-2024 End: 01-13-2024 ambulatory [facility] Start: 10-27-2023 End: 10-27-2023 ambulatory [facility] Start: 10-27-2023 Encounter for gynecological examination (general) (routine) without abnormal findings [facility] Start: 10-27-2023 End: 10-27-2023 ambulatory [facility] Start: 10-16-2023 Telephone encounter Bonnie Omalley RN Work Phone: [facility] Start: 10-14-2023 End: 10-14-2023 ambulatory [facility] Start: 09-23-2023 End: 09-23-2023 ambulatory GENOVEVA CHAVEZAshley Not Available Start: 09-19-2023 End: 09-19-2023 ambulatory [facility] Start: 09-19-2023 Encounter for gynecological examination (general) (routine) without abnormal findings [facility] Start: 07-20-[address] CHIARA DUQUE Facility : Start: 07-05-2022 End: 07-05-2022 Emergency department patient visit Bianca Bowden DO Work Phone: [facility] ED Comment on above: Fall from steps, ini tial encounter (Primary Dx); Cyst of right ovary; Contusion of forehead, initial encounter Start: 10-12-[address] CHIARA DUQUE Facility :[facility] Start: 09-20-2021 Encounter for genera l adult medical examination without abnormal findings DR CHIARA DUQUE [facility] Start: 09-15-2021 End: 09-16-[address] [...] malignant neoplasm of breast Breast cancer screen [facility] Start: 11-08-2024 End: 11-08-2024 Patient encounter procedure 11/08/2024 5:15 PM EST Appointment [facility] [address] [place], [place] [id number] Nasrin Lara PT HAI[facility] PT [facility] Comment on above: [facility] PT Start: 11-01-2024 End: 11-01-2024 Patient encounter procedure 11/01/2024 5:15 PM EST Appointment [facility] [address] [place] [address] [phone] Hailey Parks, PT [facility] Physical Therapy Comment on above: [facility] Start: 10-28-2024 End: 10-28-2024 Patient encounter procedure 10/28/2024 4:45 PM EST Appointment [facility] Physical Therapy [address] [place] [phone] Sage Hart [facility] Start: 10-27-2024 End: 10-27-2024 Patient encounter procedure 10/27/2024 4:45 PM EST Appointment [facility] [address] [place] [phone] Sage Hart [facility] Start: 10-25-2024 End: 10-25-2024 Patient encounter procedure 10/25/2024 4:45 PM EST Appointment [facility] [address] [place] [phone] Sage Hart [facility] Start: 10-20-2024 End: 10-20-2024 Patient encounter procedure 10/20/2024 4:00 PM EST Appointment [facility] Therapy [address] [place] [phone] Sage Hart [facility] Start: 10-18-2024 End: 10-18-2024 Patient encounter procedure 10/18/2024 4:30 PM EST Appointment [facility] [address] [place] [phone] Kristin Ramos PTA [facility] Start: 10-15-2024 End: 10-15-2024 Patient encounter procedure 10/15/2024 4:15 PM EST Appointment [facility] [address] [place] [phone] Nasrin Lara PT [facility] Start: 10-13-2024 End: 10-13-2024 Patient encounter procedure 10/13/2024 4:45 PM EST Appointment [facility] [address] [place] [phone] Sage Hart [facility] Start: 09-19-2024 Screening for malignant neoplasm of breast Mammogram [facility] Start: 05-09-2024 COVID-19 Vaccine ( season) COVID-19 Vaccine ( season) [facility] Start: 04-08-2024 Influenza vaccination Flu vaccine (# 1) [facility] Start: 2023 Pneumococcal 50+ yea rs Vaccine (1 of 1 - PCV) Pneumococcal 50+ years Vaccine (1 of 1 - PCV) [facility] Start: 08-20-2022 End: 08-20-2022 Patient encounter procedure 08/20/2022 Office Visit Gastroenterology Caryn Mishra MD [address] [place] [address] [place] [address] [facility] Start: 04-08-2022 Influenza vaccination Flu vaccine (# 1) [facility] Start: 08-28-2021 COVID-19 Vaccine (4 - Booster for Pfizer series) COVID-19 Vaccine (4 - Booster for Pfizer series) [facility] Start: 2018 Screening for malignant neoplasm of colon [facility] Start: 2013 Lipid panel Lipids [facility] Start: 2008 Diabetes screen Diabetes screen [facility] Start: 2003 Screening for malignant neoplasm of cervix [facility] Start: 1994 Screening for malignant neoplasm of cervix Pap smear [facility] Start: 1992 DTaP/Tdap/Td vaccine (1 - Tdap) DTaP/Tdap/Td vaccine (1 - Tdap) [facility] Start: 1992 Hepatitis B vaccine (1 of 3 - 19+ 3-dose series) Hepatitis B vaccine (1 of 3 - 19+ 3-dose series) [facility] Start: 1991 Hepatitis C screening Hepatitis C sc reen [facility] Start: 1988 HIV screening HIV screen [facility] Start: 1985 Depression Screen Depression Screen [facility] Start: 1973 Screening for malignant neoplasm of colon [facility] Immunizations Immunization Date Immunization Notes Care Provider Fa cility 2023 Influenza, injectabl e, Madin Winchester Canine Kidney, preservative free, quadrivalent Bonnie Omalley RN Work Phone: [facility] 2023 zoster vaccine recombinant Bonnie Omalley RN Work Phone: [facility] Healthcare Payers Date Payer Category Payer Unknown [employer] [id number] 2023-Present [address] [place] [address] [id number] 1973 Unknown [id number] [id number] 1973 Unknown [id number] 2.16.840.1.530744.3.579.2.593 1973 Unknown [id number] 2.16.840.1.852187.3.579.2.593 1973 Unknown [id number] 2.16.840.1.680155.3.579.2.1259 1973 Unknown [id number] 2.16.840.1.506549.3.579.2.1286 1973 Unknown [id number] 2.16.840.1.025283.3.579.2.1286 1973 Unknown [id number] 2.16.840.1.308481.3.579.2.1286 1973 Unknown [id number] 2.16.840.1.650891.3.579.2.1286 1973 Unknown [id number] 2.16.840.1.118123.3.579.2.1286 1973 Unknown [id number] 2.16.840.1.994111.3.579.2.1286 1973 Unknown [id number] 2.16.840.1.073985.3.579.2.1286 1973 Unknown [id number] 2.16.840.1.517115.3.579.2.1286 1973 Unknown [id number] 2.16.840.1.324717.3.579.2.173 1973 Unknown [id number] 2.16.840.1.522167.3.579.2.173 1973 Unknown [id number] 2.16.840.1.361026.3.579.2.173 1973 Unknown [id number] 2.16.840.1.514352.3.579.2.173 1973 Unknown [id number] 2.16.840.1.047581.3.579.2.173 1973 Unknown [id number] 2.16.840.1.988057.3.579.2.173 1973 Unknown [id number] 2.16.840.1.310269.3.579.2.173 1959 Self-pay 1959 Unknown [id number] [id number] [id number] Unknown [facility] [id number] Unknown [id number] 2.16.840.1.989895.3.579.2.531 Unknown [id number] 2.16.840.1.672095.3.579.2.531 Social History Date Type Detail Facility Start: 03-26-2018 End: 03-26-2019 Tobacco smoking status [facility] Ex-smoker [employer] Phone: Start: 03-17-1989 End: 05-18-2001 History of tobacco use Current smoker [employer] Phone: Start: 03-26-2018 End: 09-23-2023 Tobacco use and exposure Smokeless tobacco non-user [employer] Phone: Start: 05-15-2018 End: 11-19-2022 Alcohol intake Current drinker of alcohol (finding) [employer] Phone: Start: 03-26-2018 [facility] Start: 1975 Sex Assigned At Not on file [facility] [employer] Phone: Start: 06-25-2022 End: 07-05-2022 Exposure to SARS-CoV-2 (event) Not sure [facility] Start: 03-17-1989 End: 05-18-2001 History of tobacco use Cigarette Smoker [facility] Start: 11-19-2022 End: 09-23-2023 Cigarettes smoked current (pack per day) - Reported 0.5 [facility] Start: 11-19-2022 End: 09-23-2023 Tobacco use panel [facility] Start: 1975 [facility] Start: 11-07-2024 Gender identity Identifies as female gender (finding) [facility] [employer] Start: 12-30-2024 Sex Female (finding) [facility] History of Present illness Narrative 11-08-2024 Nasrin Lara, PT - 11/08/2024 5:15 PM EST Note Date & Type Note Facility 11-08-2024 History of Presen t illness Narrative [facility] Therapy Daily Note Patient: José Pritchard : 1975 CSN #: [id number] Referring Physician: Chiara Duque MD Date: 11/08/2024 Diagnosis: L hip pain, M25.552 Treatment Diagnosis: Bilateral hip pain, bilateral hip OA, possible REGINA Onset Date: 04/08/24 PT Insurance Information: [employer] [facility] Total # of Visits Approved: [...] ROM and strength in an unloaded environment.-met 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 (3/3: B hip flexion: 125*, L IR: 25*, R IR: 42*) Boarding Machine Operator Goal 3: Patient will improve bilateral hip strength to >/= 4/5 in all major joints and planes-met (11/08: 4/5 strength grossly) Mcc Goal 4: Patient will report decreased pain to < 6/10 at worst.-met (3/3: 0/10 pain) Mcc Goal 5: Patient will report 70% improvement in overall symptoms and function.-met (11/08: 100% improvement) Minutes Tracking: Time In: 1714 Time Out: 172 Minutes: 14 Timed Code Treatment Minutes: 13 Minutes Nasrin Lara, PT, DPT Date: 11/08/2024 documented in this encounter [facility] History of Present illness Narrative 10-25-2024 Sage Hart - 10/25/2024 3:15 PM EST Note Date & Type Note Facility 10-25-2024 History of Present illness Narrative [facility] Physical Therapy Daily Note Patient: José Pritchard : 1975 CSN #: [id number] Referring Physician: Chiara Duque MD Date: 10/25/2024 Diagnosis: L hip pain, M25.552 Treatment Diagnosis: Bilateral hip pain, bilateral hip OA, possible REGINA Onset Date: 04/08/24 PT Insurance Information: [employer] Total # of Visits Approved: 8 Per [...] Exercise 8: aq--standing hip flexor stretching bi [id number], side hip adductor stretching 3x30 sec Exercise [...] ROM and strength in an unloaded environment.-met Mcc Goals Time Frame for Mcc Goals : 4 weeks Mcc Goal 1: Patient will be independent and compliant with a HEP 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 Mcc Goal 3: Patient will improve bilateral hip strength to >/= 4/5 in all major joints and planes Mcc Goal 4: Patient will report decreased pain to < 6/10 at worst. Mcc Goal 5: Patient will report 70% improvement in overall symptoms and function. Minutes Tracking: Time In: 1530 Time Out: 1630 Minutes: 60 Timed Code Treatment Minutes: 55 Minutes Sage Berg Date: 10/25/2024 documented in this encounter [facility] History of Present illness Narrative 10-15-2024 Nasrin Lara PT - 10/15/2024 4:15 PM EST Note Date & Type Note Facility 10-15-2024 History of Presen t illness Narrative [facility] Out[facility] Physical Therapy Daily Note Patient: José Pritchard : 1975 CSN #: [id number] Referring Physician: Chiara Duque MD Date: 10/15/2024 Diagnosis: L hip pain, M25.552 Treatment Diagnosis: Bilateral hip pain, bilateral hip OA, possible REGINA Onset Date: 04/08/24 PT Insurance Information: [employer] [facility] Total # of Visits Approved: 8 Per Physician Order Total # of Visits to Date: 3 No Show: 0 Canceled Appointment: 0 11/04/24 Plan of Care/Recert Due Pre-Treatment Pain: 1/ Subjective: Pt reports mild soreness after last [...] Exercise 8: aq--standing hip flexor stretching bi [id number] Exercise 9: aq: deep water hanging with [...] ROM and strength in an unloaded environment.-met 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 Boarding Machine Operator Goal 3: Patient will improve bilateral hip strength to >/= 4/5 in all major joints and planes Boarding Machine Operator Goal 4: Patient will report decreased pain to < 6/10 at worst. Boarding Machine Operator Goal 5: Patient will report 70% improvement in overall symptoms and function. Minutes Tracking: Time In: 1617 Time Out: 1656 Minutes: 39 Timed Code Treatment Minutes: 38 Minutes Nasrin Lara, PT, DPT Date: 10/15/2024 documented in this encounter [facility] Telephone encounter Note 10-16-2023 Telephone Encounter - Genoveva Winters MD - 10/16/2023 1:34 PM EST Note Date & Type Note Facility 10-16-2023 Telephone encounter Note ok [facility] Work Phone: Note 10-16-2023 Telephone Encounter [...] canceled. Hospital notified. documented in this encounter [facility] Telephone encounter Note 10-16-2023 Telephone Encounter [...] up appt for 10/22 canceled. Hospital notified. [facility] Discharge instructions 07-05-2022 Discharge Instructions Note Date & Type Note Facility 07-05-2022 Hospital Discharg e instructions Bianca Bowden DO - 07/05/2022 11:01 PM EDT Follow-up with your ESCALATOR ATTENDANT regarding your right ovarian cyst. You will [...] tingling or weakness. documented in this encounter [facility] [employer] Phone: Evaluation note Note Date & Type Note Facility Evaluation note Diagnosis Fall from steps, initial encounter- Primary Cyst of right ovary Other and unspecified ovarian cyst Contusion of forehead, initial encounter [facility] Evaluation note Note Date & Type Note Facility Evaluation note No assessment information [facility] Work Phone: Summary Purpose Family History No Family History Records Found Relationship Condition Age at Onset Recorded Date/T caleb mother Hypertension Unknown Diabetes mellitus Unknown Malignant neoplasm of breast Unknown father Malignant melanoma Unknown daughter Crohn's disease Unknown father Malignant neoplasm Unknown Unknown mother Diabetes mellitus Unknown Malignant neoplasm Unknown Hypertension Unknown Advance Directives No Advanced Directives Records Found Advance Directive Response Recorded Date/ Time Advance Directives No March 23 4:50pm Chief Complaint and Reason for Visit Chief Complaint Admit Date M25.551 December 29, 2024 5:4 8pm Additional Source Comments Reason for Visit (unrecogniz ed section and content) Reason Comments Fall Rib Injury Head Injury Patient fell forward down a flight of stairs just prior to arrival. Hit head on ground. Left side rib pain. Specialty Diagnoses / Procedures Referred By Brijesh blackman Referred To Contact Physical Therapy Diagnoses Pain in left hip Chiara Duque MD [address] [place], [place] [id number] [facility] [address] [place] [address] Referral ID Status Reason Start Date Expiration Date Visits Re quested Visits Authorized [id number] Open 10/01/2024 10/01/2025 1 1 Ordered Prescriptions [...] on Fri07/05/22 at 2123, Until Fri07/05/22 at 2126, Other 2126 (Given - Provid er: Shae Richardson) Care Teams (unrecognized sec tion and content) Record Retrieval Specialist Relationship Specialty Start Date End Date Chiara Duque MD [address] [place] [address] PCP - General 09/27/15 Record Retrieval Specialist Relationship Specialty Start Date End Date Chiara Duque MD [address] [place] [address] PCP - General Family Medicine 09/12/23 Record Retrieval Specialist Relationship Specialty Start Date End Date Chiara Duque MD [address] [place] [id number] PCP - General 09/27/15 Record Retrieval Specialist Relationship Specialty Start Date End Date Chiara Duque MD [address] [place] [address] PCP - General 09/27/15 Record Retrieval Specialist Relationship Specialty Start Date End Date Chiara Duque MD [address] [place] [address] PCP - General 09/27/15 Record Retrieval Specialist Relationship Specialty Start Date End Date Chiara Duque MD [address] [id number] PCP - General 09/27/15 Record Retrieval Specialist Relationship Specialty Start Date End Date Chiara Duque MD [address] [place] [address] PCP - General 09/27/15 Team Status: Active Member Role Status Dates Chiara Duque MD Primary Care Provider Active Team Status: Inactive Member Role Status Dates Chiara Duque MD Primary Care Provide r, Attending Provider Active Start: December 29, 2024 End: December 29, 2024 INFORMATION SOURCE (unrecogn ized section and content) DATE CREATED AUTHOR 07/15/2022 [facility] DATE CREATED AUTHOR AUTHOR'S ORGANIZ ATION 09/24/2023 [facility] DATE CREATED AUTHOR AUTHOR'S ORGANIZ ATION 10/24/2023 [facility] DATE CREATED AUTHOR AUTHOR'S ORGANIZ ATION 10/29/2023 [facility] DATE CREATED AUTHOR AUTHOR'S ORGANIZ ATION 07/22/2024 [facility] DATE CREATED AUTHOR AUTHOR'S ORGANIZ ATION 11/10/2024 [facility] DATE CREATED AUTHOR AUTHOR'S ORGANIZ ATION 01/22/2025 [facility] Goals (unrecognized section and content) Goals may be documented in a n alternate section FOR RECORDS PERTAINING TO PATIENTS WHO ARE [...] BE BASED ON THE PRIMARY CLINICAL RECORDS. [facility]. provides no warranty or guarantee of the accuracy or completeness of information in this document.
[2025-01-27 08:35] LABS: Free T3 3.15 pg/mL (2.18-3.98); Thyroid Stimulating Hormone 1.432 uIU/mL (0.358-3.740)
== END 2025-01-27 07:24 | disposition home or self-care (01) ==
LOC: LAB 07:25
PROVIDERS: PCP Family Medicine; Visit Provider Family Medicine
DX: E03.9 Hypothyroidism, unspecified (principal)
CPT/HCPCS: 36415; 84436; 84443; 84481

== ENCOUNTER 2025-02-19 07:48 | Outpatient (OUT) | payer OTHER, SELFPAY ==
--- OUTSIDE RECORDS SUMMARY | 2025-02-19 07:51 | XMS_ITS | CCD ---
Author Organization [facility] Care Team Providers Care Jump Roll Operator Name Role Phone Chiara Duque MD Primary Care Provider [phone] JAMA, DR GUADARRAMA Admitting Unavailable JAMA, DR [...] Unavailable Chiara Duque MD Primary Care Provider [phone] CHIARA DUQUE Referring Unavailable HOY, CHIARA M [...] Unavailable Chiara Duque MD Primary Care Provider [phone] CHIARA DUQUE Referring Unavailable HOY, CHIARA M [...] Unavailable Chiara Duque MD Primary Care Provider [phone] Chiara Duque MD Attending Provider Chiara [...] and due to atherosclerosis; Translations: [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, bilateral legs] Onset: 09-18-2023 09-18-2023 Chronic Superficial injury; contusion (1 source) Contusion of forehead; Translations: [Contusion of other part of head, initial encounter] Episodic Unclassified (1 source) Annual Exam Onset: 10-27-2023 Results Test Name Value Interpretation Reference Range Facility MR hip RT arthrogram w conon 01-18-2025 MR hip RT arthrogram w con [facility] [place] [address] [place] [address] MRI Report Signed Patient: José Pritchard MR#: [id number] : 1975 Acct:[id number] Age/Sex: 49 / F ADM Date: 01/18/25 Loc: MR Room: Type: [facility] Attending Dr: Chiara Duque MD Copies [...] Jr., D.O. 01/18/2025 9:41 AM Dictation Location: [place] [address] Transcribed By: [facility] 01/18/25 0941 Dictated By: Juan Antonio Brothers Jr, DO 01/18/2522 Signed By: 01/18/25 [address] [facility] XR hip RT 1Von 01-18-2025 XR hip RT 1V [facility] [place] [address] Fluoroscopy Report Signed Patient: José Pritchard MR#: [id number] : 1975 Acct:[id number] Age/Sex: 49 / F ADM Date: 01/18/25 Loc: MR Room: Type: [facility] Attending Dr: Chiara Duque MD Copies to: Chiara Duque MD Ordering Provider: Chiara Duque MD Date of Service: 01/18/25 FL/FL guided needle placement: RT HIP ARTHROGRAM ([id number]) XR/XR hip RT 1V: RT HIP ARTHROGRAM [...] Jr., DRubén 01/18/2025 9:43 AM Dictation Location: [place] [address] Transcribed By: [facility] 01/18/2543 Dictated By: Juan Antonio Brothers Jr, DO 01/18/25 0940 Signed By: 01/18/2543 Normal [facility] MAMM DIAGNOSTIC UNILAT RT W CADon 07-20-2024 MAMM DIAGNOSTIC UNILAT RT W CAD MAMM DIAGNOSTIC UNILAT RT W CAD JOSÉ PRITCHARD 1975 [id number] EXAM: MAMM DIAGNOSTIC UNILAT RT W CAD, [...] PM 2 b MAMM 1 YR Normal [facility] MAMM DIAGNOSTIC UNILAT RT W CADon 01-13-2024 [...] PM 3 b MAMM 6 MONTH Normal [facility] US BREAST RT LIMITEDon 01-12 US BREAST [...] PM 3 b MAMM 6 MONTH Normal [facility] Cytologyon 10-27-2023 Cytology Normal [facility] Comment on above: Result Comment: [facility] [address] [place] [address] Gynecologic Cytology Consultation Patient Name:JOSÉ PRITCHARD:1975 (Age: 48)Gender:FTaken:4Reported:11/05/2023hysician(s):ALIRIO MACIEL C.N.MJacinto ([phone])Copy To: Rec. #:[id number]: #[id number] Final Cytologic Interpretation ThinPrep Pap Test (Cervical): Satisfactory for evaluation. A transformation zone component is present. NEGATIVE FOR INTRAEPITHELIAL LESION OR MALIGNANCY. jja/11/05/2023 [facility] [address] [place] [address], License number: [id number]. Electronically Signed Out By RICKI Dubose(ASCP) Date of Last Menstrual Period: (None Given) Other Clinical Conditions: Z01.419 Environmental Attorney exam wo/abn findings Z12.72 Screeing for malignant neoplasm of vagina Source of Specimen ThinPrep Pap Test (Cervical) Thin Prep Pap (SUPERSONIC ENGINEER) Fee Code(s): G0145 HIGH RISK HPV W/GENOon 10-27 HPV 31+33+35+39+45+51+52+5 6+58+59+66+68 DNA ANDREE+probe Ql (Cvx) HPV SPECIMEN TYPE ThinPrep HPV 16 Negative (qualifier value) HPV 18 Negative (qualifier value) OTHER HIGH RISK HPV Negative (qualifier value) HPV types 31,33,35,39,45,52,56 ,58,59,66 and 68 DNA were undetectable. Normal [facility] Comment on above: Performed By: #### 7 1431-1 #### [facility] ([id number]) [address] [facility] [place] [address] [facility] ([id number]) [address] [facility] [facility] [place] [address] Physician Orderon 10-22-2023 Physician Order [id number] #1.00TIFF Normal [facility] MAMM DIAGNOSTIC UNILAT RT W [...] PM 3 b MAMM 3 MONTH Normal [facility] US BREAST RT LIMITEDon 10-14 US BREAST [...] 3:55 PM 3 US 3 MONTH Normal [facility] Physician Orderon 09-23-2023 Physician Order [id number] #1.00TIFF Normal [facility] MAMM SCREENING BILATERAL W C manager recovery 09-19-2023 MAMM SCREENING BILATERAL W CAD MAMM [...] 4:03 PM 0A b ADDITIONAL I Normal [facility] Basic Metabolic Panelon - Anion gap [Moles/Vol] 11 mmol/L 9 - 17 mmol/L [facility] Calcium [Mass/Vol] 8.9 mg/dL 8.6 - 10. 4 mg/dL [facility] Chloride [Moles/Vol] 107 mmol/L 98 - 10 7 mmol/L [facility] CO2 [Moles/Vol] 24 mmol/L 20 - 31 mmol/L [facility] Creatinine [Mass/Vol] 0.71 mg/dL 0.50 - 0.90 mg/dL [facility] GFR/1.73 sq M.predicted MDRD (S/P/Bld) [Vol rate/Area] - PINF [facility] Comment on above: Effective Jun 10, [...] 117 mg/dL High 70 - 99 mg/dL [facility] Interpretation and review of laboratory results Abnormal [facility] Potassium [Moles/Vol] 4.0 mmol/L 3.7 - 5.3 mmol/L [facility] Sodium [Moles/Vol] 142 mmol/L 135 - 144 mmol/L [facility] Urea nitrogen (BldV) [Mass/Vol] 18 mg/dL 6 - 20 mg/dL [facility] Urea nitrogen/Creatinine (Bld) [Mass ratio] 25 High 9 - 20 [facility] CBCon 07-05-2022 Hematocrit (Bld) [Volume fraction] 41.5 % 36.3 - 47.1 % [facility] Hemoglobin (Bld) [Mass/Vol] 14.1 g/dL 11.9 - 15.1 g/dL [facility] MCH (RBC) [Entitic mass] 32.0 pg 25.2 - 33.5 pg [facility] MCHC (RBC) [Mass/Vol] 34.0 g/dL 28.4 - 34.8 g/dL [facility] MCV (RBC) [Entitic vol] 94.3 fL 82.6 - 102.9 fL [facility] NRBC Automated 0.0 0.0 per 100 WBC [facility] Platelet distribution width (Bld) [Ratio] 12.6 % 11.8 - 14.4 % [facility] Platelet mean volume (Bld) [Entitic vol] 10.4 fL 8.1 - 13.5 fL [facility] Platelets (Bld) [#/Vol] 173 10*3/uL [facility] RBC (Bld) [#/Vol] 4.40 10*6/uL 3.95 - 5.1 1 m/uL [facility] WBC (Bld) [#/Vol] 5.6 10*3/uL [facility] CT CERVICAL SPINE WO CONTRAS Ton 07-05-2022 Radiology Study observation (narrative) [facility] Work Phone: CT CHEST ABDOMEN PELVIS W CO NTRAST Additional Contrast? Noneon 07-05-2022 Radiology Study observation (narrative) [facility] Work Phone: CT Head WO Contraston 2021 Radiology Study observation (narrative) [facility] Work Phone: Ethanolon 07-05-2022 Ethanol [Mass/Vol] 233 mg/dL High NINF - 10 mg/dL [facility] Ethanol percent 0.233 % High NINF - 0.010 % [facility] Interpretation and review of laboratory results Abnormal [facility] No Panel Informationon 07-[address]: No [...] concerning lytic or sclerotic lesions are noted. [facility] RIS Uvaldo Rivera MD - 07/05/2022 [...] further evaluation pelvic ultrasound examination is recommended. [employer] [facility] Work Phone: No Panel InformationOrdered By: Uvaldo Reddy on 07-05-2022 [facility] [employer] Work Phone: CBC AUTO DIFFon 09-15-2021 BASO # 0.0 103/ul Normal 0.0-0.1 [facility] Comment on above: Performed By: #### C BC #### [facility] [address] [place] [address] Dr. Lakshmi Galevz Basophils/100 WBC (Bld) 1.0 % Normal 0.2-2.0 [facility] Comment on above: Performed By: #### C BC #### [facility] [address] [place] [address] Dr. Lakshmi Galvez EO # 0.2 103/ul Normal 0.0-0.7 [facility] Comment on above: Performed By: #### C BC #### [facility] [address] [place] [address] Dr. Lakshmi Galvez Eosinophils/100 WBC (Bld) 3.9 % Normal 0.9-7.0 [facility] Comment on above: Performed By: #### C BC #### [facility] [address] [place] [address] Dr. Lakshmi Galvez Erythrocyte distribution width (RBC) [Ratio] 12.4 % Normal 11.0-15.0 [facility] Comment on above: Performed By: #### C BC #### [facility] [address] [place] [address] Dr. Lakshmi Galvez Hematocrit (Bld) [Volume fraction] 41.5 % Normal 36.0-48.0 [facility] Comment on above: Performed By: #### C BC #### [facility] [address] [place] [address] Dr. Lakshmi Galvez Hemoglobin (Bld) [Mass/Vol] 13.9 g/dL Normal 12.0-16.0 [facility] Comment on above: Performed By: #### C BC #### [facility] [address] [place] [address] Dr. Lakshmi Galvez IG # 0.01 10e3/ul Normal 0.00-0.03 [facility] Comment on above: Performed By: #### C BC #### [facility] [address] [place] [address] Dr. Lakshmi Galvez IG % 0.2 % Normal 0.0-0.5 [facility] Comment on above: Performed By: #### C BC #### [facility] [address] [place] [address] Dr. Lakshmi Galvez LYMPH # 1.5 103/ul Normal 1.2-3.8 [facility] Comment on above: Performed By: #### C BC #### [facility] [address] [place] [address] Dr. Lakshmi Galvez Lymphocytes/100 WBC (Bld) 36.6 % Normal 20.5-60.0 [facility] Comment on above: Performed By: #### C BC #### [facility] [address] [place] [address] Dr. Lakshmi Galvez MANUAL DIFF REQ NO Normal [facility] Comment on above: Performed By: #### C BC #### [facility] [address] [place] [address] Dr. Lakshmi Galvez MCH (RBC) [Entitic mass] 31.2 pg Normal 26.7-34.0 [facility] Comment on above: Performed By: #### C BC #### [facility] [address] [place] [address] Dr. Lakshmi Galvez MCHC (RBC) [Mass/Vol] 33.5 g/dL Normal 29.9-35.2 [facility] Comment on above: Performed By: #### C BC #### [facility] [address] [place] [address] Dr. Lakshmi Galvez MCV (RBC) [Entitic vol] 93.0 fL Normal 81.0-99.0 [facility] Comment on above: Performed By: #### C BC #### [facility] [address] [place] [address] Dr. Lakshmi Galvez MONO # 0.4 103/ul Normal 0.3-0.8 [facility] Comment on above: Performed By: #### C BC #### [facility] [address] [place] [address] Dr. Lakshmi Galvez Monocytes/100 WBC (Bld) 9.0 % Normal 1.7-12.0 [facility] Comment on above: Performed By: #### C BC #### [facility] [address] [place] [address] Dr. Lakshmi Galvez NEUT # 2.0 103/ul Normal 1.4-6.5 [facility] Comment on above: Performed By: #### C BC #### [facility] [address] [place] [address] Dr. Lakshmi Galvez Neutrophils/100 WBC (Bld) 49.3 % Normal 43.0-75.0 [facility] Comment on above: Performed By: #### C BC #### [facility] [address] [place] [address] Dr. Lakshmi Galvez Platelet mean volume (Bld) [Entitic vol] 10.5 fL Normal 9.5-13.5 [facility] Comment on above: Performed By: #### C BC #### [facility] [address] [place] [address] Dr. Lakshmi Galvez PLT 202 103/ul Normal 150-450 [facility] Comment on above: Performed By: #### C BC #### [facility] [address] [place] [address] Dr. Lakshmi Galvez RBC 4.46 106/ul Normal 4.20-5.40 [facility] Comment on above: Performed By: #### C BC #### [facility] [address] [place] [address] Dr. Lakshmi Galvez WBC 4.1 103/ul Normal 4.0-11.0 [facility] Comment on above: Performed By: #### C BC #### [facility] [address] [place] [address] [address] Lakshmi Galvez FREE THYROXINE INDEX T7on FTI 2.28 Normal [facility] Comment on above: Performed By: #### L IPID, CMP, T7, TSH #### [facility] [address] [place] [address] Dr. Lakshmi Galvez T3U 35.0 % Normal 23.5-40.5 [facility] Comment on above: Performed By: #### L IPID, CMP, T7, TSH #### [facility] [address] [place] [address] [address] Lakshmi Galvez T4 [Mass/Vol] 6.50 ug/dL Normal 5.53-11.00 [facility] Comment on above: Performed By: #### L IPID, CMP, T7, TSH #### [facility] [address] [place] [address] [address] Lakshmi Galvez GLYCOHEMOGLOBIN A1Con 2021 ADA RECOMMENDATION ADA THERAPEUTIC TARGET 6.0 - 7.0 ACTION SUGGESTED > 7.0 Normal [facility] Comment on above: Performed By: #### A 1C #### [facility] [address] [place] [address] Dr. Lakshmi Galvez Glucose [Mass/Vol] 111 mg/dL Normal [facility] Comment on above: Performed By: #### A 1C #### [facility] [address] [place] [address] Dr. Lakshmi Galvez HbA1c (Bld) [Mass fraction] 5.5 % Normal <=6.0 [facility] Comment on above: Performed By: #### A 1C #### [facility] [address] [place] [address] Dr. Lakshmi Galvez LIPID PROFILEon 09-15-2021 CHOL-HDL RATIO NORM SEE BELOW Normal [facility] Comment on above: Result Comment: 3.3 - 4.4 LOW RISK 4.4 - 7.1 AVERAGE RISK 7.1 - 11.0 MODERATE RISK >11.0 HIGH RISK Performed By: #### L IPID, CMP, T7, TSH #### [facility] [address] [place] [address] [address] Lakshmi Galvez Cholesterol [Mass/Vol] 237 mg/dL Critically high <=200 [facility] Comment on above: Performed By: #### L IPID, CMP, T7, TSH #### [facility] [address] [place] [address] [address] Lakshmi Galvez Cholesterol in HDL [Mass/Vol] 50 mg/dL Normal [facility] Comment on above: Performed By: #### L IPID, CMP, T7, TSH #### [facility] [address] [place] [address] [address] Lakshmi Galvez Cholesterol in LDL [Mass/Vol] 144.8 mg/dL Normal [facility] Comment on above: Performed By: #### L IPID, CMP, T7, TSH #### [facility] [address] [place] [address] [address] Lakshmi Galvez Cholesterol.total/Chol esterol in HDL [Mass ratio] 4.7 {ratio} Normal [facility] Comment on above: Performed By: #### L IPID, CMP, T7, TSH #### [facility] [address] [place] [address] [address] Lakshmi Galvez HDL NORMAL > or = 60 mg/dl - LOW CARDIOVASCULAR RISK <40 mg/dl - HIGH CARDIOVASCULAR RISK Normal [facility] Comment on above: Performed By: #### L IPID, CMP, T7, TSH #### [facility] [address] [place] [address] [address] Lakshmi Galvez LDL CALC NORMAL SEE BELOW Normal [facility] Comment on above: Result Comment: <100 mg/dl OPTIMAL 100 - 129 mg/dl NEAR OR ABOVE OPTIMAL 130 - 159 mg/dl BORDERLINE HIGH 160 - 189 mg/dl HIGH >190 mg/dl VERY HIGH Performed By: #### L IPID, CMP, T7, TSH #### [facility] [address] [place] [address] [address] Lakshmi Galvez Triglyceride [Mass/Vol] 211 mg/dL Critically high <=150 [facility] Comment on above: Performed By: #### L IPID, CMP, T7, TSH #### [facility] [address] [place] [address] Dr. Lakshmi Galvez VLDL CALC 42.2 mg/dL Normal [facility] Comment on above: Performed By: #### L IPID, CMP, T7, TSH #### [facility] [address] [place] [address] Dr. Lakshmi Galvez PROF 14(COMP METB)on 022 Albumin [Mass/Vol] 3.9 g/dL Normal 3.5-5.0 [facility] Comment on above: Performed By: #### L IPID, CMP, T7, TSH #### [facility] [address] [place] [address] Dr. Lakshmi Galvez Albumin/Globulin [Mass ratio] 1.1 {ratio} Normal [facility] Comment on above: Performed By: #### L IPID, CMP, T7, TSH #### [facility] [address] [place] [address] Dr. Lakshmi Galvez ALP [Catalytic activity/Vol] 55 U/L Normal 38-126 [facility] Comment on above: Performed By: #### L IPID, CMP, T7, TSH #### [facility] [address] [place] [address] Dr. Lakshmi Galvez ALT [Catalytic activity/Vol] 53 U/L Critically high 9-52 [facility] Comment on above: Performed By: #### L IPID, CMP, T7, TSH #### [facility] [address] [place] [address] Dr. Lakshmi Galvez Anion gap [Moles/Vol] 13.0 mmol/L Normal [facility] Comment on above: Performed By: #### L IPID, CMP, T7, TSH #### [facility] [address] [place] [address] Dr. Lakshmi Galvez AST [Catalytic activity/Vol] 23 U/L Normal 14-36 [facility] Comment on above: Performed By: #### L IPID, CMP, T7, TSH #### [facility] [address] [place] [address] Dr. Lakshmi Galvez Bilirubin [Mass/Vol] 0.5 mg/dL Normal 0.2-1.3 [facility] Comment on above: Performed By: #### L IPID, CMP, T7, TSH #### [facility] [address] [place] [address] [address] Lakshmi Galvez Calcium [Mass/Vol] 8.8 mg/dL Normal 8.4-10.2 [facility] Comment on above: Performed By: #### L IPID, CMP, T7, TSH #### [facility] [address] [place] [address] Dr. Laskhmi Galvez Chloride [Moles/Vol] 101 mmol/L Normal 98-107 [facility] Comment on above: Performed By: #### L IPID, CMP, T7, TSH #### [facility] [address] [place] [address] Dr. Lakshmi Galvez CO2 [Moles/Vol] 26.9 mmol/L Normal 22.0-30.0 [facility] Comment on above: Performed By: #### L IPID, CMP, T7, TSH #### [facility] [address] [place] [address] Dr. Lakshmi Galvez Creatinine [Mass/Vol] 0.65 mg/dL Normal 0.52-1.04 [facility] Comment on above: Performed By: #### L IPID, CMP, T7, TSH #### [facility] [address] [place] [address] Dr. Lakshmi Galvez EGFR-AF MICRONESIAN >60 Normal >=60 [facility] Comment on above: Performed By: #### L IPID, CMP, T7, TSH #### [facility] [address] [place] [address] Dr. Lakshmi Galvez EGFR-NON AF MICRONESIAN >60 Normal >=60 [facility] Comment on above: Performed By: #### L IPID, CMP, T7, TSH #### [facility] [address] [place] [address] [address] Lakshmi Galvez Globulin (S) [Mass/Vol] 3.4 g/dL Normal [facility] Comment on above: Performed By: #### L IPID, CMP, T7, TSH #### [facility] [address] [place] [address] [address] Lakshmi Galvez Glucose [Mass/Vol] 108 mg/dL Critically high 74-106 [facility] Comment on above: Performed By: #### L IPID, CMP, T7, TSH #### [facility] [address] [place] [address] Dr. Lakshmi Galvez Potassium [Moles/Vol] 3.9 mmol/L Normal 3.4-5.0 [facility] Comment on above: Performed By: #### L IPID, CMP, T7, TSH #### [facility] [address] [address] [address] Lakshmi Galvez Protein [Mass/Vol] 7.3 g/dL Normal 6.1-8.2 [facility] Comment on above: Performed By: #### L IPID, CMP, T7, TSH #### [facility] [address] [place] [address] Dr. Lakshmi Galvez Sodium [Moles/Vol] 137 mmol/L Normal 137-145 [facility] Comment on above: Performed By: #### L IPID, CMP, T7, TSH #### [facility] [address] [place] [address] Dr. Lakshmi Galvez Urea nitrogen [Mass/Vol] 11.0 mg/dL Normal 7.0-17.0 [facility] Comment on above: Performed By: #### L IPID, CMP, T7, TSH #### [facility] [address] [place] [address] Dr. Lakshmi Galvez Urea nitrogen/Creatinine [Mass ratio] 16.9 mg/mg Normal [facility] Comment on above: Performed By: #### L IPID, CMP, T7, TSH #### [facility] [address] [place] [address] Dr. Lakshmi Galvez TSHon 09-15-2021 TSH 3.650 uIU/mL Normal 0.470-4.680 [facility] Comment on above: Performed By: #### L IPID, CMP, T7, TSH #### [facility] [id number] Lakshmi Galvez TSH RANGE SEE BELOW Normal [facility] Comment on above: Result Comment: <0.3 4 UIU/ml HYPERTHYROID 0.34-5.60 UIU/ml EUTHYROID >5.60 UIU/ml HYPOTHYROID Performed By: #### L IPID, CMP, T7, TSH #### [facility] [id number] Lakshmi Galvez Vital Signs Date Time Vital Sign Value Performing Clinician Faci lity 07-05-2022 20:12-0400 Body height 170.2 cm Bianca Bowden DO Work Phone: [facility] [employer] 07-05-2022 20:12-0400 Body mass index (BMI) [Ratio] 28.82 kg/m2 Bianca Bowden DO Work Phone: [employer] 07-05-2022 20:12-0400 Body weight 83.46 kg Bianca Bowden DO Work Phone: [employer] 07-05-2022 20:02-0400 Body temperature 97.59 [degF] Bianca Bowden DO Work Phone: [facility] [employer] 07-05-2022 20:02-0400 Diastolic blood pressure 68 mm[Hg] Bianca Bowden DO Work Phone: [employer] 07-05-2022 20:02-0400 Heart rate 79 /min Bianca Bowden DO Work Phone: [facility] [employer] 07-05-2022 20:02-0400 Respiratory rate 18 /min Bianca Bowden DO Work Phone: [employer] 07-05-2022 20:02-0400 SaO2% (BldA) [Mass fraction] 93 % Bianca Bowden DO Work Phone: [employer] 07-05-2022 20:02-0400 Systolic blood pressure 126 mm[Hg] Bianca Bowden DO Work Phone: [facility] Encounters Encounter Date Encounter Type Care Provider Facility Start: 01-18-2025 End: 01-18-2025 ambulatory Chiara Duque Facility:[facility] Start: 12-29-2024 End: 12-29-2024 Patient encounter procedure Chiara Duque MD Work Phone: [facility] [address] Closed Work Phone: Start: 12-29-2024 End: 12-29-2024 ambulatory Chiara Duque MD Work Phone: [facility] Work Phone: Start: 11-08-2024 End: 11-08-2024 ambulatory [facility] Posadas [facility] Start: 11-08-2024 End: 11-08-2024 Subsequent hospital visit by physician Nasrin Lara PT [facility] Comment on above: Arrived Start: 11-01-2024 End: 11-01-2024 Subsequent hospital visit by physician Hailey Parks PT [facility] Start: 10-27-2024 End: 10-27-2024 ambulatory CHIARA Posadas [facility] Start: 10-27-2024 End: 10-27-2024 Subsequent hospital visit by physician Sage Hart [facility] Comment on above: Arrived Start: 10-25-2024 End: 10-25-2024 ambulatory CHIARA Posadas [facility] Start: 10-25-2024 End: 10-25-2024 Subsequent hospital visit by physician Sage Hart [facility] Comment on above: Arrived Start: 10-18-2024 End: 10-18-2024 ambulatory [facility] Start: 10-18-2024 End: 10-18-2024 Subsequent hospital visit by physician Kristin Ramos PTA [facility] Physical Therapy Comment on above: Arrived Start: 10-15-2024 End: 10-15-2024 ambulatory [facility] Posadas [facility] Start: 10-15-2024 End: 10-15-2024 Subsequent hospital visit by physician Nasrin Lara PT [facility] Physical Therapy Comment on above: Arrived Start: 10-13-2024 End: 10-13-2024 ambulatory CHIARA DUQUE [facility] Start: 10-13-2024 End: 10-13-2024 Subsequent hospital visit by physician Sage Hart [facility] Physical Therapy Comment on above: Arrived Start: 10-07-2024 End: 10-07-[address] [facility] Start: 10-07-2024 End: 10-07-2024 Subsequent hospital visit by physician Hailey Parks PT [facility] Physical Therapy Comment on above: Arrived Start: 07-20-2024 End: 07-20-2024 ambulatory [facility] Start: 01-13-2024 End: 01-13-2024 ambulatory [facility] Start: 10-27-2023 End: 10-27-2023 ambulatory [facility] Start: 10-27-2023 Encounter for gynecological examination (general) (routine) without abnormal findings [facility] Start: 10-27-2023 End: 10-27-2023 ambulatory [facility] Start: 10-16-2023 Telephone encounter Bonnie Omalley RN Work Phone: [facility] Start: 10-14-2023 End: 10-14-2023 ambulatory [facility] Start: 09-23-2023 End: 09-23-2023 ambulatory GENOVEVA CHAVEZAshley Not Available Start: 09-19-2023 End: 09-19-2023 ambulatory [facility] Start: 09-19-2023 Encounter for gynecological examination (general) (routine) without abnormal findings [facility] Start: 07-20-[address] CHIARA DUQUE Facility : Start: 07-05-2022 End: 07-05-2022 Emergency department patient visit Bianca Bowden DO Work Phone: [facility] ED Comment on above: Fall from steps, ini tial encounter (Primary Dx); Cyst of right ovary; Contusion of forehead, initial encounter Start: 10-12-[address] CHIARA DUQUE Facility :H1 Start: 09-20-2021 Encounter for genera l adult medical examination without abnormal findings DR CHIARA DUQUE [facility] Start: 09-15-2021 End: 09-16-[address] [...] malignant neoplasm of breast Breast cancer screen [facility] Start: 11-08-2024 End: 11-08-2024 Patient encounter procedure 11/08/2024 5:15 PM EST Appointment [facility] [address] [place], [place] [phone] Nasrin Lara PT HAILEY PT [facility] Physical Therapy Comment on above: HAILEY PT Start: 11-01-2024 End: 11-01-2024 Patient encounter procedure 11/01/2024 5:15 PM EST Appointment [facility] Physical Therapy [address] [place] [address] [phone] Hailey Parks, PT [facility] Physical Therapy Comment on above: [facility] Start: 10-28-2024 End: 10-28-2024 Patient encounter procedure 10/28/2024 4:45 PM EST Appointment [facility] Physical Therapy [address] [place] [phone] Sage Hart [facility] Physical Therapy Start: 10-27-2024 End: 10-27-2024 Patient encounter procedure 10/27/2024 4:45 PM EST Appointment [facility] Physical Therapy [address] [place] [phone] Sage Hart [facility] Physical Therapy Start: 10-25-2024 End: 10-25-2024 Patient encounter procedure 10/25/2024 4:45 PM EST Appointment [facility] Physical Therapy [address] [place] [phone] Sage Hart [facility] Physical Therapy Start: 10-20-2024 End: 10-20-2024 Patient encounter procedure 10/20/2024 4:00 PM EST Appointment [facility] Physical Therapy [address] [place] [phone] Sage Hart [facility] Physical Therapy Start: 10-18-2024 End: 10-18-2024 Patient encounter procedure 10/18/2024 4:30 PM EST Appointment [facility] Physical Therapy [address] [place] [phone] Kristin Ramos PTA [facility] Physical Therapy Start: 10-15-2024 End: 10-15-2024 Patient encounter procedure 10/15/2024 4:15 PM EST Appointment [facility] Physical Therapy [address] [place] [phone] Nasrin Lara PT [facility] Physical Therapy Start: 10-13-2024 End: 10-13-2024 Patient encounter procedure 10/13/2024 4:45 PM EST Appointment [facility] Physical Therapy [address] [place] [phone] Sage Hart [facility] Physical Therapy Start: 09-19-2024 Screening for malignant neoplasm of breast Mammogram [facility] Start: 05-09-2024 COVID-19 Vaccine ( season) COVID-19 Vaccine ( season) [facility] Start: 04-08-2024 Influenza vaccination Flu vaccine (# 1) [facility] Start: 2023 Pneumococcal 50+ yea rs Vaccine (1 of 1 - PCV) Pneumococcal 50+ years Vaccine (1 of 1 - PCV) [facility] Start: 08-20-2022 End: 08-20-2022 Patient encounter procedure 08/20/2022 Office Visit Gastroenterology Caryn Mishra MD [address] [place] [address] [address] [place] [address] [facility] Start: 04-08-2022 Influenza vaccination Flu vaccine (# 1) [facility] Start: 08-28-2021 COVID-19 Vaccine (4 - Booster for Pfizer series) COVID-19 Vaccine (4 - Booster for Pfizer series) [facility] Start: 2018 Screening for malignant neoplasm of colon [facility] Start: 2013 Lipid panel Lipids [facility] Start: 2008 Diabetes screen Diabetes screen [facility] Start: 2003 Screening for malignant neoplasm of cervix [facility] Start: 1994 Screening for malignant neoplasm of cervix Pap smear [facility] Start: 1992 DTaP/Tdap/Td vaccine (1 - Tdap) DTaP/Tdap/Td vaccine (1 - Tdap) [facility] Start: 1992 Hepatitis B vaccine (1 of 3 - 19+ 3-dose series) Hepatitis B vaccine (1 of 3 - 19+ 3-dose series) [facility] Start: 1991 Hepatitis C screening Hepatitis C sc reen [facility] Start: 1988 HIV screening HIV screen [facility] Start: 1985 Depression Screen Depression Screen [facility] Start: 1973 Screening for malignant neoplasm of colon [facility] Immunizations Immunization Date Immunization Notes Care Provider Fa cility 2023 Influenza, injectabl e, Madin Swati Canine Kidney, preservative free, quadrivalent Bonnie Omalley RN Work Phone: [facility] 2023 zoster vaccine recombinant Bonnie Omalley RN Work Phone: [facility] Healthcare Payers Date Payer Category Payer Unknown [employer] [id number] 2023-Present [address] [place] [address] [id number] 1973 Unknown [id number] 2.16.840.1.238670.3.579.2.593 1973 Unknown [id number] 2.16.840.1.451869.3.579.2.593 1973 Unknown [id number] 2.16.840.1.732392.3.579.2.593 1973 Unknown [id number] 2.16.840.1.760663.3.579.2.1259 1973 Unknown [id number] 2.16.840.1.053995.3.579.2.1286 1973 Unknown [id number] 2.16.840.1.078949.3.579.2.1286 1973 Unknown [id number] 2.16.840.1.756847.3.579.2.1286 1973 Unknown [id number] 2.16.840.1.584712.3.579.2.1286 1973 Unknown [id number] 2.16.840.1.334277.3.579.2.1286 1973 Unknown [id number] 2.16.840.1.328172.3.579.2.1286 1973 Unknown [id number] 2.16.840.1.997890.3.579.2.1286 1973 Unknown [id number] 2.16.840.1.534920.3.579.2.1286 1973 Unknown [id number] 2.16.840.1.871252.3.579.2.173 1973 Unknown [id number] 2.16.840.1.244489.3.579.2.173 1973 Unknown [id number] 2.16.840.1.119431.3.579.2.173 1973 Unknown [id number] 2.16.840.1.056584.3.579.2.173 1973 Unknown [id number] 2.16.840.1.818272.3.579.2.173 1973 Unknown [id number] 2.16.840.1.062406.3.579.2.173 1973 Unknown [id number] 2.16.840.1.760041.3.579.2.173 1959 Self-pay 1959 Unknown [id number] 1.2.840.624642.1.13.239.2.7.3.6 [id number] Unknown [facility] [id number] Unknown [id number] 2.16.840.1.554319.3.579.2.531 Unknown [id number] 2.16.840.1.029167.3.579.2.531 Social History Date Type Detail Facility Start: 03-26-2018 End: 03-26-2019 Tobacco smoking status [facility] Ex-smoker [employer] Phone: Start: 03-17-1989 End: 05-18-2001 History of tobacco use Current smoker [employer] Phone: Start: 03-26-2018 End: 09-23-2023 Tobacco use and exposure Smokeless tobacco non-user [employer] Phone: Start: 05-15-2018 End: 11-19-2022 Alcohol intake Current drinker of alcohol (finding) [employer] Phone: Start: 03-26-2018 [facility] Start: 1975 Sex Assigned At Not on file [facility] [employer] Phone: Start: 06-25-2022 End: 07-05-2022 Exposure to SARS-CoV-2 (event) Not sure [facility] Start: 03-17-1989 End: 05-18-2001 History of tobacco use Cigarette Smoker [facility] Start: 11-19-2022 End: 09-23-2023 Cigarettes smoked current (pack per day) - Reported 0.5 [facility] Start: 11-19-2022 End: 09-23-2023 Tobacco use panel [facility] Start: 1975 [facility] [employer] Start: 11-07-2024 Gender identity Identifies as female gender (finding) [facility] [employer] Start: 12-30-2024 Sex Female (finding) [facility] History of Present illness Narrative 11-08-2024 Nasrin Lara, PT - 11/08/2024 5:15 PM EST Note Date & Type Note Facility 11-08-2024 History of Presen t illness Narrative [facility] Physical Therapy Daily Note Patient: José Pritchard : 1975 CSN #: [id number] Referring Physician: Chiara Duque MD Date: 11/08/2024 Diagnosis: L hip pain, M25.552 Treatment Diagnosis: Bilateral hip pain, bilateral hip OA, possible REGINA Onset Date: 04/08/24 PT Insurance Information: [employer] Total # of Visits Approved: [...] ROM and strength in an unloaded environment.-met Knurling Machine Tender Goals Time Frame for Knurling Machine Tender Goals : 4 weeks Knurling Machine Tender Goal 1: Patient will be independent and compliant with a HEP-met Senior Care Goal 2: Patient will improve bilateral hip flexion ROM to >/= 110* and internal rotation ROM to >35* to decrease pain with ADLs. (3/3: B hip flexion: 125*, L IR: 25*, R IR: 42*) Senior Care Goal 3: Patient will improve bilateral hip strength to >/= 4/5 in all major joints and planes-met (11/08: 4/5 strength grossly) Knurling Machine Tender Goal 4: Patient will report decreased pain to < 6/10 at worst.-met (3/3: 0/10 pain) Knurling Machine Tender Goal 5: Patient will report 70% improvement in overall symptoms and function.-met (11/08: 100% improvement) Minutes Tracking: Time In: 1714 Time Out: 172 Minutes: 14 Timed Code Treatment Minutes: 13 Minutes Nasrin Lara, PT, DPT Date: 11/08/2024 documented in this encounter [facility] History of Present illness Narrative 10-25-2024 Sage Hart - 10/25/2024 3:15 PM EST Note Date & Type Note Facility 10-25-2024 History of Present illness Narrative [facility] Physical Therapy Daily Note Patient: José Pritchard : 1975 CSN #: [id number] Referring Physician: Chiara uDque MD Date: 10/25/2024 Diagnosis: L hip pain, M25.552 Treatment Diagnosis: Bilateral hip pain, bilateral hip OA, possible REGINA Onset Date: 04/08/24 PT Insurance Information: [employer] Total # of Visits Approved: 8 Per [...] Exercise 8: aq--standing hip flexor stretching bi [id number], side hip adductor stretching 3x30 sec Exercise [...] ROM and strength in an unloaded environment.-met Knurling Machine Tender Goals Time Frame for Senior Care Goals : 4 weeks Senior Care Goal 1: Patient will be independent and compliant with a HEP Knurling Machine Tender Goal 2: Patient will improve bilateral hip flexion ROM to >/= 110* and internal rotation ROM to >35* to decrease pain with ADLs. Senior Care Goal 3: Patient will improve bilateral hip strength to >/= 4/5 in all major joints and planes Knurling Machine Tender Goal 4: Patient will report decreased pain to < 6/10 at worst. Senior Care Goal 5: Patient will report 70% improvement in overall symptoms and function. Minutes Tracking: Time In: 1530 Time Out: 1630 Minutes: 60 Timed Code Treatment Minutes: 55 Minutes Sage Berg Date: 10/25/2024 documented in this encounter [facility] History of Present illness Narrative 10-15-2024 Nasrin Lara PT - 10/15/2024 4:15 PM EST Note Date & Type Note Facility 10-15-2024 History of Presen t illness Narrative [facility] Physical Therapy Daily Note Patient: José Pritchard : 1975 CSN #: [id number] Referring Physician: Chiara Duque MD Date: 10/15/2024 Diagnosis: L hip pain, M25.552 Treatment Diagnosis: Bilateral hip pain, bilateral hip OA, possible REGINA Onset Date: 04/08/24 PT Insurance Information: [employer] Total # of Visits Approved: [...] Exercise 8: aq--standing hip flexor stretching bi [id number] Exercise 9: aq: deep water hanging with [...] ROM and strength in an unloaded environment.-met Knurling Machine Tender Goals Time Frame for Knurling Machine Tender Goals : 4 weeks Knurling Machine Tender Goal 1: Patient will be independent and compliant with a HEP Senior Care Goal 2: Patient will improve bilateral hip flexion ROM to >/= 110* and internal rotation ROM to >35* to decrease pain with ADLs. Knurling Machine Tender Goal 3: Patient will improve bilateral hip strength to >/= 4/5 in all major joints and planes Senior Care Goal 4: Patient will report decreased pain to < 6/10 at worst. Knurling Machine Tender Goal 5: Patient will report 70% improvement in overall symptoms and function. Minutes Tracking: Time In: 1617 Time Out: 1656 Minutes: 39 Timed Code Treatment Minutes: 38 Minutes Nasrin Lara, PT, DPT Date: 10/15/2024 documented in this encounter [facility] Telephone encounter Note 10-16-2023 Telephone Encounter [...] up appt for 10/22 canceled. Hospital notified. [facility] Discharge instructions 07-05-2022 Discharge Instructions Note Date & Type Note Facility 07-05-2022 Hospital Discharg e instructions Bianca Bowden DO - 07/05/2022 11:01 PM EDT Follow-up with your TELEPHONE SERVICES SALES REPRESENTATIVE regarding your right ovarian cyst. You will [...] tingling or weakness. documented in this encounter [facility] [employer] Phone: Evaluation note Note Date & Type Note Facility Evaluation note Diagnosis Fall from steps, initial encounter- Primary Cyst of right ovary Other and unspecified ovarian cyst Contusion of forehead, initial encounter [facility] this [facility]: Evaluation note Note Date & Type Note Facility Evaluation note No assessment information [facility] Work Phone: Summary Purpose Family History No [...] left hip Chiara Duque MD [address] [place] [address] [facility] Physical Therapy [address] [place] [address] Referral ID Status Reason Start Date Expiration Date Visits Re quested Visits Authorized [id number] Open 10/01/2024 10/01/2025 1 1 Ordered Prescriptions [...] Care Teams (unrecognized sec tion and content) Jump Roll Operator Relationship Specialty Start Date End Date Chiara Duque MD [address] [place] [address] PCP - General 09/27/15 Jump Roll Operator Relationship Specialty Start Date End Date Chiara Duque MD [address] [place] [address] PCP - General Family Medicine 09/12/23 Jump Roll Operator Relationship Specialty Start Date End Date Chiara Duque MD [address] [place] [phone] PCP - General 09/27/15 Jump Roll Operator Relationship Specialty Start Date End Date Chiara Duque MD [address] [place] [address] PCP - General 09/27/15 Jump Roll Operator Relationship Specialty Start Date End Date Chiara Duque MD [address] [place] [address] PCP - General 09/27/15 Jump Roll Operator Relationship Specialty Start Date End Date Chiara Duque MD [address] [place] [phone] PCP - General 09/27/15 Jump Roll Operator Relationship Specialty Start Date End Date Chiara Duque MD [address] [place] [address] PCP - General 09/27/15 Team Status: Active Member Role Status Dates Chiara Duque MD Primary Care Provider Active Team Status: Inactive Member Role Status Dates Chiara Duque MD Primary Care Provide r, Attending Provider Active Start: December 29, 2024 End: December 29, 2024 INFORMATION SOURCE (unrecogn ized section and content) DATE CREATED AUTHOR 07/15/2022 [facility] DATE CREATED AUTHOR AUTHOR'S ORGANIZ ATION 09/24/2023 [facility] DATE CREATED AUTHOR AUTHOR'S ORGANIZ ATION 10/24/2023 [facility] DATE CREATED AUTHOR AUTHOR'S ORGANIZ ATION 10/29/2023 [facility] DATE CREATED AUTHOR AUTHOR'S ORGANIZ ATION 07/22/2024 [facility] DATE CREATED AUTHOR AUTHOR'S ORGANIZ ATION 11/10/2024 [facility] DATE CREATED AUTHOR AUTHOR'S ORGANIZ ATION 01/22/2025 [facility] Goals (unrecognized section and content) Goals [...] BE BASED ON THE PRIMARY CLINICAL RECORDS. [facility] [employer] [facility]. provides no warranty or guarantee of the accuracy or completeness of information in this document.
[2025-02-19 09:58] LABS: Free T3 2.41 pg/mL (2.18-3.98); Thyroid Stimulating Hormone 0.475 uIU/mL (0.358-3.740)
== END 2025-02-19 07:49 | disposition home or self-care (01) ==
PROVIDERS: PCP Family Medicine; Visit Provider Family Medicine
DX: E03.9 Hypothyroidism, unspecified (principal)
CPT/HCPCS: 36415; 84436; 84443; 84481

== ENCOUNTER 2025-05-12 11:42 | Emergency (ER) | payer OTHER, SELFPAY ==
--- OUTSIDE RECORDS SUMMARY | 2025-01-27 08:32 | XMS_ITS ---
Author Organization [facility] [place] Address [address] [place] [address] Care Team Providers Care Bun Machine Operator Name Role Phone Spencer Duque Primary Care Provider REASON FOR VISIT thyroid labs Medications Medication SIG (Take, Route, Frequency, Duration) Notes Start Date End Date Status Levothyroxine Sodium 75 MCG 1 tablet in the morning on an empty stomach Orally Once a day for 30 days Active Encounters Encounter Location Date Provider Diagnosis [address] [address] 01/27/2025 Spencer Duque Hypothyroidism E03.9 Assessments Encounter Date Diagnosis (ICD Code) Assessment Notes Treatment Notes Treatment Clinical Notes Section Notes 01/27/2025 Hypothyroidism (ICD-10 - E03.9) Plan Of Treatment Medication Medication Name Sig Start Date Stop Date Notes Levothyroxine Sodium 75 MCG 1 tablet in the morning on an empty stomach Orally Once a day for 30 days Pending Test Test Name Order Date THYROID PANEL (T4/TSH/FREE T3) Progress Notes * Glory ZHAO GDOB:[birth year] (49 yo F)Acc No.[id number]:01/27/2025 Patient: Glory CUNNINGHAM :1975 A ge:49 Y S ex:Female Address:[address] [place] [address] [address] [place], [place], [address] * Refills Refill Levothyroxine Sodium Capsule, 75 MCG, Orally, 30, 1 tablet in the morning on an empty stomach, Once a day, 30 days, Refills=11 Subjective: * Chief Complaints: * T hyroid labs * Medical History: * Surgical History: * Hospitalization/Major Diagno stic Procedure: * Medications: Objective: * Vitals: * Physical Examination: Assessment: * Assessment: 1. H ypothyroidism - E03.9 (Primary) Plan: * Treatment: 2. O thers Refill Levothyroxine Sodium Capsule, 75 MCG, 1 tablet in the morning on an empty stomach, Orally, Once a day, 30 days, 30, Refills 11. * Procedure Codes: * true * Date: Generated for Kavya bush/Reynaldo/eTbrendasmitting on: 0 05/12/2025 11:48 AM EDT
--- OUTSIDE RECORDS SUMMARY | 2025-02-20 08:00 | XMS_ITS ---
Author Organization [facility] [place] Address [address] [place] [address] Care Team Providers Care Bank And Savings Securities Trader Name Role Phone Spencer Duque Primary Care Provider REASON FOR VISIT Thyroid Results Encounters Encounter Location Date Provider Diagnosis [place] [address] [place] [address] 02/20/2025 Spencer Duque Plan Of Treatment No Information Progress Notes * RHONDAGlory HOLLINS GDOB:[birth year] (49 yo F)Acc No.[id number]:02/20/2025 Patient: Glory CUNNINGHAM :1975 A ge:49 Y S ex:Female Address:[address] [place] [address] [address], [place], [address] * true * Date: Generated for Kavya bush/Reynaldo/eTransmitting on: 0 05/12/2025 11:49 AM EDT
--- OUTSIDE RECORDS SUMMARY | 2025-02-22 04:02 | XMS_ITS ---
Author Organization [facility] [place] Address [address] [place] [address] Care Team Providers Care Dag Sprayer Name Role Phone Spencer Duque Primary Care Provider REASON FOR VISIT rf levothyroxine Medications Medication SIG (Take, Route, Frequency, Duration) Notes Start Date End Date Status Levothyroxine Sodium 75 MCG 1 tablet in the morning on an empty stomach Orally Once a day for 30 days Active Encounters Encounter Location Date Provider Diagnosis [address] [address] 02/22/2025 Spencer Duque Plan Of Treatment Medication Medication Name Sig Start Date Stop Date Notes Levothyroxine Sodium 75 MCG 1 tablet in the morning on an empty stomach Orally Once a day for 30 days Progress Notes * Glory ZHAO GDOB:[birth year] (49 yo F)Acc No.[id number]:02/22/2025 Patient: Glory CUNNINGHAM :1975 A ge:49 Y S ex:Female Address:[address] [place] [address] [address] [address] * Refills Refill Levothyroxine Sodium Capsule, 75 MCG, Orally, 30, 1 tablet in the morning on an empty stomach, Once a day, 30 days, Refills=11 * true * Date: Generated for Kavya bush/Famyg/eTransmitting on: 0 05/12/2025 11:49 AM EDT
--- OUTSIDE RECORDS SUMMARY | 2025-03-22 06:01 | XMS_ITS ---
Author Organization [facility] [place] Address [address] [place] [address] Care Team Providers Care Car Sales Associate Name Role Phone Spencer Duque Primary Care Provider REASON FOR VISIT cyst on ovary Encounters Encounter Location Date Provider Diagnosis [facility] [address] [place] [address] 03/22/2025 Spencer Duque Ovarian cyst N83.209 Assessments Encounter Date Diagnosis (ICD Code) Assessment Notes Treatment Notes Treatment Clinical Notes Section Notes 03/22/2025 Ovarian cyst (ICD-10 - N83.209) Plan Of Treatment Pending Test Test Name Order Date US PELVIS 03/22/2025 Progress Notes * Glory ZHAO GDOB:[birth year] (49 yo F)Acc No.[id number]:03/22/2025 Patient: Glory CUNNINGHAM :1975 A ge:49 Y S ex:Female Address:[address] [place] [address], [address] Subjective: * Chief Complaints: * C yst on ovary * Medical History: * Surgical History: * Hospitalization/Major Diagno stic Procedure: * Medications: Objective: * Vitals: * Physical Examination: Assessment: * Assessment: 1. O varian cyst - N83.209 (Primary) Plan: * Treatment: * Procedure Codes: * true * Date: Generated for Printi ng/Faxing/eTransmitting on: 0 05/12/2025 11:49 AM EDT
--- OUTSIDE RECORDS SUMMARY | 2025-04-13 10:15 | XMS_ITS ---
Author Organization [facility] in [place] Address [address] [place] [address] Care Team Providers Care Stringer Machine Tender Name Role Phone Spencer Duque Primary Care Provider Allergies No Known Allergies REASON FOR VISIT Paperwork in nurses box surgery clearance hip surgery 04-27-25, Right Hip- Arthroscopic Procedure, Surgical Clearance, Date of Surgery: 04/19/2025, Dr. Harrison/ [facility] [place] Medications Medication SIG (Take, Route, Frequency, Duration) Notes Start Date End Date Status Cetirizine HCl 10 MG 1 tablet Orally Onc e a day for 30 days 09/10/2023 Active Escitalopram Oxalate 20 MG TAKE 1 TABLET BY MOUTH EVERY DAY FOR 30 DAYS for 90 Active Euthyrox 75 MCG 1 tablet in the morn ing on an empty stomach Orally Once a day for 30 days Active Fluticasone Propionate 50 MCG/ACT 1 spray in each nostril Nasally Once a day for 30 days Active Meloxicam 15 MG 1 tablet Orally Once a day for 30 days 10/01/2024 Active Simvastatin 20 MG 1 tablet in the even ing Orally Once a day for 90 days 09/14/2024 Active Lisinopril 20 MG TAKE 1 TABLET BY DAVID TH EVERY DAY for 90 Active Social History Tobacco Use: Social History Observation Description Date Details (start date - stop date) Former Smoker 09/08/1988 - 09/08/2001 Tobacco Use/Smoking Question Answer Notes Patient is a former smoker When did you start smoking? 09/08/1988 When did you stop smoking? 09/08/2001 How long has it been since you last smoked? > 10 years Additional Findings: Tobacco Non-User Current no n-smoker AUDIT-C (Standard) Question Answer Notes Did you have a drink containing alcohol in the p ast year? No Points 0 Interpretation Negative Vital Signs Blood pressure systolic 144 mm Hg 04/13/20 25 Blood pressure diastolic 84 mm Hg 025 Height 67 in 04/13/2025 Weight 196 lbs 04/13/2025 BMI 30.69 kg/m2 04/13/2025 Encounters Encounter Location Date Provider Diagnosis [facility] [address] [place] [address] 04/13/2025 Spencer Duque Hip pain, acute, rig ht M25.551 Assessments Encounter Date Diagnosis (ICD Code) Assessment Notes Treatment Notes Treatment Clinical Notes Section Notes 04/13/2025 Hip pain, acute, right (ICD-10 - M25.551) No CAD hx - no chest pain - no Hx strokes - cleared for OR Plan Of Treatment Medication Medication Name Sig Start Date Stop Date Notes Levothyroxine Sodium 50 MCG TAKE 1 TABLE T BY MOUTH EVERY DAY IN THE MORNING ON AN EMPTY STOMACH FOR 30 DAYS Valium 10 MG 1 tablet as needed O rally once about 1 hour before procedure 12/24/2024 Treatment Notes Assessment Notes Hip pain, acute, right No CAD hx - no ch est pain - no Hx strokes - cleared for OR Progress Notes * Glory ZHAO GDOB:[birth year] (49 yo F)Acc No.[id number]:04/13/2025 Progress Note Patient: Glory CUNNINGHAM Provider: Ricardo Duque ([facility])MD :1975 A ge:49 Y S ex:Female Date:04/13/2025 Address:[address] [place], [place] [phone] Check In:02:11 PM ESTCheck O ut:02:30 PM EST Subjective: * Chief Complaints: * P aperwork in nurses box surgery clearance hip surgery [id number] Hip- Arthroscopic ProcedureSurgical ClearanceDate of Surgery: 04/19/2025Dr. Harrison/ [facility] [place] * HPI: G eneral: R hip - nees repari torn labrum - no CAD hx - no chest pain - no Hx strokes - cleared for OR. * ROS: E ENT: hearing changes d enies. v isual changes d enies.?non-healing mouth sores d enies. s wollen glands or neck lumps d enies. h oarseness d enies. s ore throat d enies. d ifficulty swallowing d enies. n ose bleeds d enies. n fatoumata congestion d enies. e ar ache d enies. e ar discharge?denies. r inging in ears d enies. l ight sensitivity d enies. e ye pain d enies. b lurring d enies. e ye irritation d enies. d ouble vision d enies.?vision loss d enies. G eneral/Constitutional: Sweats: D enies. F atigue d enies. S leep problems d enies. A norexia d enies. M alaise d enies. W eight loss d enies.?Fatigue or Weakness d enies. F ever or Chills d enies. C ardiovascular: Shortness of Breath w/lying flat d enies. L ightheadedness/dizziness d enies. C hest tightness/ heavy pressure d enies. S welling of legs, ankles, or feet d enies. W aking up with shortness of breath d enies. C hest pain denies. P alpitations d enies. W eight gain d enies. R espiratory: Chronic or frequent cough d enies. C oughing up blood?denies. D ifficulty breathing d enies. P roductive cough d enies. S noring?denies. S hortness of breath that awakens from sleep (PND) d enies. C hest pain d enies. S putum production d enies. W heezing d enies. M usculoskeletal: Joint pain d enies. J oint Fluid d enies. B ack pain d enies. K nee pain d enies. N christina pain d enies. J oint Stiffness d enies. M uscle cramps d enies. W eakness of muscles d enies. A rthritis d enies. M uscle aches d enies. P ain in shoulder(s) d enies. S wollen joints d enies. * Active Problem List J01.90 Acute sinusitis Modified On:08/22/2023 Status:confirmed R03.0 Elevated blood press ure reading Modified On:11/19/2023 Status:confirmed M54.9 Back pain Modified On:12/11/2022 Status:confirmed L25.9 Contact dermatitis Modified On:12/11/2022 Status:confirmed U07.1 COVID-19 Modified On:12/11/2022 Status:confirmed Z00.00 Well adult Modified On:05/19/2023 Status:confirmed K58.9 Irritable bowel synd suzanne (IBS) Modified On:12/11/2022 Status:confirmed I70.213 Atherosclerosis of n ative arteries of extremities with intermittent claudication, bilateral legs Modified On:12/11/2022 Status:confirmed N94.89 Pelvic congestion sy ndrome Modified On:12/11/2022 Status:confirmed M25.579 Ankle pain Modified On:12/11/2022 Status:confirmed G47.00 Insomnia Modified On:01/10/2023 Status:confirmed K80.20 Gall stones Modified On:12/11/2022 Status:confirmed J30.2 Seasonal allergic rh initis Modified On:12/11/2022 Status:confirmed H55.00 Nystagmus Modified On:12/11/2022 Status:confirmed L30.9 Eczema Modified On:12/11/2022 Status:confirmed E78.00 Hypercholesteremia Modified On:07/14/2023 Status:confirmed J32.9 Chronic sinusitis, u nspecified Modified On:09/10/2023 Status:confirmed I10 Hypertension Modified On:10/08/2023U Status:confirmed E78.5 Hyperlipidemia Modified On:09/14/2024U Status:confirmed M25.551 Hip pain, acute, rig ht Modified On:12/09/2024 Status:confirmed E03.9 Hypothyroidism Modified On:04/21/2025W/U Status:confirmed * Medical History: * Surgical History: C holecystectomy 2014basal cell carcinoma excision * Hospitalization/Major Diagno stic Procedure: D enies Past Hospitalization * Family History: F ather: , Melenoma, diagnosed with Other malignant neoplasm of unspecified site. M other: alive 89 yrs, Breast, diagnosed with Other malignant neoplasm of unspecified site, Diabetes mellitus without mention of complication, type II or unspecified type, not stated as uncontrolled.?Brother(s): alive. S ister(s): alive. S on(s): alive 14 yrs. D demetrio(s): alive 28 yrs, Crohn's Disease. 1 brother(s) , 3 sister(s) . 1 son(s) , 1 daughter(s) . . * Social History: T obacco Use: T obacco Use/Smoking P atient is a f ormer smoker W hen did you start smoking? 0 09/08/1988 W hen did you stop smoking? 0 09/08/2001 H ow long has it been since you last smoked??> 10 years A dditional Findings: Tobacco Non-User C urrent non-smoker D rug/Alcohol: A ISACC-C (Standard) D id you have a drink containing alcohol in the past year? N o P oints 0 I nterpretation N egative * Medications: T akingCetirizine HCl 10 MG Tablet 1 tablet Orally Once a day Escitalopram Oxalate 20 MG Tablet TAKE 1 TABLET BY MOUTH EVERY DAY FOR 30 DAYS Euthyrox(Levothyroxine Sodium) 75 MCG Tablet 1 tablet in the morning on an empty stomach Orally Once a day Fluticasone Propionate 50 MCG/ACT Suspension 1 spray in each nostril Nasally Once a day Levothyroxine Sodium 50 MCG Tablet TAKE 1 TABLET BY MOUTH EVERY DAY IN THE MORNING ON AN EMPTY STOMACH FOR 30 DAYS Lisinopril 20 MG Tablet TAKE 1 TABLET BY MOUTH EVERY DAY Meloxicam 15 MG Tablet 1 tablet Orally Once a day Simvastatin 20 MG Tablet 1 tablet in the evening Orally Once a day Valium(diazePAM) 10 MG Tablet 1 tablet as needed Orally once about 1 hour before procedure F41.9Taking Cetirizine HCl 10 MG Tablet 1 tablet Orally Once a day Taking Escitalopram Oxalate 20 MG Tablet TAKE 1 TABLET BY MOUTH EVERY DAY FOR 30 DAYS Taking Euthyrox(Levothyroxine Sodium) 75 MCG Tablet 1 tablet in the morning on an empty stomach Orally Once a day Taking Fluticasone Propionate 50 MCG/ACT Suspension 1 spray in each nostril Nasally Once a day Taking Levothyroxine Sodium 50 MCG Tablet TAKE 1 TABLET BY MOUTH EVERY DAY IN THE MORNING ON AN EMPTY STOMACH FOR 30 DAYS Taking Lisinopril 20 MG Tablet TAKE 1 TABLET BY MOUTH EVERY DAY Taking Meloxicam 15 MG Tablet 1 tablet Orally Once a day Taking Simvastatin 20 MG Tablet 1 tablet in the evening Orally Once a day Taking Valium(diazePAM) 10 MG Tablet 1 tablet as needed Orally once about 1 hour before procedure F41.9DiscontinuedAdipex-P(Phentermine HCl) 37.5 MG Tablet 1 tablet before breakfast Orally Once a day Medication List reviewed and reconciled with the patientDiscontinued Adipex-P(Phentermine HCl) 37.5 MG Tablet 1 tablet before breakfast Orally Once a day Medication List reviewed and reconciled with the patient * Allergies: N .K.D.A.no[Allergies Verified] Objective: * Vitals: W t:196lbs, Ht: 67 in, BP:144/84mm Hg, BMI:30.69Index, Ht-cm: 170.18 cm, Wt-k.91 kg. * Examination: P hysical Exam: GENERAL: w ell developed, well nourished, in no acute distress. HEAD: n ormocephalic/atraumatic. EYES: p upils equal, round and reactive to light, conjunctivae and sclerae normal. EARS: n o deformity or lesion of external ear, canals and TM appear normal bilaterally, TM's intact, not inflamed with normal light reflex, hearing grossly normal to conversational speech. NOSE: n o deformity, discharge, inflammation, or lesions.? MOUTH: m ucous membranes moist, normal oropharynx and posterior pharynx without lesions or exudates, tongue normal, dentition normal. NECK: n christina supple, no masses or palpable cervical nodes, trachea midline, thyroid without nodules, masses, tenderness, or enlargement. CHEST: n o chest wall deformity, no chest wall tenderness.? LUNGS: n ormal respiratory effort and clear to auscultation, no wheezes, rales, or rhonchi, good air exchange. CARDIO: r egular rate and rhythm, normal S1 and S2, nor murmur, rub, or gallop. PULSES: n ormal capillary refill. ABDOMEN: s oft, non-distended, non-tender, no masses. MUSCULOSKELETAL: n o deformity or scoliosis noted, normal range of motion, joints normal, no erythema, edema, effusion, or ecchymosis. EXTREMITY: n o clubbing, cyanosis, edema, or deformity with normal ROM in both upper and lower bilateral extremities. NEUROLOGIC: g rossly normal. SKIN: n o rashes, ulcerations, or suspicious lesions. LYMPH NODES: n o cervical adenopathy, nodes normal. MENTAL STATUS: a lert and oriented x3, normal mood and affect. Assessment: * Assessment: 1. H ip pain, acute, right - M25.551 (Primary) Plan: * Treatment: 2. O thers Stop Levothyroxine Sodium Tablet, 50 MCG, TAKE 1 TABLET BY MOUTH EVERY DAY IN THE MORNING ON AN EMPTY STOMACH FOR 30 DAYS; S top Valium Tablet, 10 MG, 1 tablet as needed, Orally, once about 1 hour before procedure F41.9. * Procedure Codes: * Preventive Medicine: Screenings/Counseling: B [place] ACTION PLAN Above Normal BMI Follow-up D ietary management education, guidance, and counseling * * Sign off status: Completed Visit Status: C HK (Check Out) true * Provider: Ricardo Duque ([facility])MD Date: 0 04/13/2025 Generated for Printi ng/Famyg/eTransmitting on: 0 05/12/2025 11:49 AM EDT History and Physical Notes * HPI (History of Present Illness) Category Sub-Category Detail Notes Category Not es General R hip - nees repari torn labrum - no CAD hx - no chest pain - no Hx strokes - cleared for OR Examination Category Sub-Category Detail Notes Category Not es Physical Exam GENERAL: well developed, well nourished, in no acute distress HEAD: normocephalic/atraum atic EYES: pupils equal, round and reactive to light, conjunctivae and sclerae normal EARS: no deformity or lesi on of external ear, canals and TM appear normal bilaterally, TM's intact, not inflamed with normal light reflex, hearing grossly normal to conversational speech NOSE: no deformity, discha rge, inflammation, or lesions MOUTH: mucous membranes luana st, normal oropharynx and posterior pharynx without lesions or exudates, tongue normal, dentition normal NECK: neck supple, no mass es or palpable cervical nodes, trachea midline, thyroid without nodules, masses, tenderness, or enlargement CHEST: no chest wall deform ity, no chest wall tenderness LUNGS: normal respiratory e ffort and clear to auscultation, no wheezes, rales, or rhonchi, good air exchange CARDIO: regular rate and rhy thm, normal S1 and S2, nor murmur, rub, or gallop PULSES: normal capillary ref ill ABDOMEN: soft, non-distended, non-tender, no masses RECTAL: MUSCULOSKELETAL: no deformity or scol iosis noted, normal range of motion, joints normal, no erythema, edema, effusion, or ecchymosis EXTREMITY: no clubbing, cyanosi s, edema, or deformity with normal ROM in both upper and lower bilateral extremities NEUROLOGIC: grossly normal SKIN: no rashes, ulceratio ns, or suspicious lesions LYMPH NODES: no cervical adenopat hy, nodes normal MENTAL STATUS: alert and oriented x 3, normal mood and affect
--- OUTSIDE RECORDS SUMMARY | 2025-05-02 14:25 | XMS_ITS | Encounter Summary ---
Author Organization [employer] [facility] [employer] Address [id number] [address] [place] [address] Care Team Providers Care Head Stock Operator Name Role Phone Ramone Duque MD Primary Care Provider [phone] Encounter Details Date Type Department Care Team (Late st Contact Info) Description 05/02/2025 2:25 PM EDT Ancillary Procedure [facility] [address] [place] [phone] Right hip pain Social History Tobacco Use Types Packs/Day Years Used Date Smoking Tobacco: Former Cigarettes 1 13.7 S tarted: 2011 Smokeless Tobacco: Never Alcohol Use Standard Drinks/Week Comments Yes 0 (1 standard drink = 0.6 oz pur e alcohol) occassionally PHQ-2 Answer Date Recorded Total Score 0 10/27/2023 Childcare Answer Date Recorded Childcare Unknown 02/17/2019 Employment Answer Date Recorded Employment Unknown 02/17/2019 Hunger Screening Answer Date Recorded Within the past 12 months we worried whether our food would run out before we got money to buy more. Never True 05/02/2025 Within the past 12 months th e food we bought just didn't last and we didn't have money to get more. Never True 05/02/2025 Purpose - Life Answer Date Recorded Purpose and direction in life Unknown Comments No Sex and Gender Information Value Date Recorded Sex Assigned at Not on file Legal Sex Female 1:46 PM EDT Gender Identity Female 01/13/2024 1:58 PM EDT Sexual Orientation Straight 09/03/2023 6: 01 AM EST documented as of this encounter Plan of Treatment Upcoming Encounters Date Type Department Care Team (Late st Contact Info) Description 05/30/2025 1:45 PM EDT Office Visit [facility] [address] [place] [address] Levy Harrison MD [address] [place] [address] 07/07/2025 2:00 PM EDT Office Visit [facility] [address] [place] [address] Seth Evans MD [address], [facility] [address] [place] [address] 2025 12:30 PM EST Office Visit [facility] [address] [place] [address] Levy Harrison MD [address] [place] [address] 09/12/2025 10:40 AM EST Office Visit [facility] [address] [place] [address] Levy Harrison MD [address] [place] [address] documented as of this encounter Procedures Procedure Name Priority Date/Time Associated Diagnosis Comments XR HIP RT 2-3 VIEWS W OR WO PELVIS Routine 05/02/2025 2:28 PM EDT Right hip pain documented in this encounter Results * X-ray hip right 2-3 views with or without pelvis (05/02/2025 2:28 PM EDT) Anatomical Region Laterality Modality Lower Extremities, MSK, Hip Right Comp uted Radiography Narrative 05/02/2025 2:46 PM EDT AP and lateral x-rays right hip reviewed. Stable appearing joint space no acute osseous abnormalities this is my independent interpretation. us Levy Harrison MD IMG DIAGNOSTIC IMAGING ORDERABLE S Final Result documented in this encounter Visit Diagnoses Diagnosis Right hip pain Pain in joint, pelvic region and thigh documented in this encounter Additional Health Concerns Assessment Noted Time PHQ-9 Depression Total Score: 0 10/27/19 24 3:50 PM EST documented as of this encounter Care Teams Head Stock Operator Relationship Specialty Start Date End Date Ramone Duque MD PCP - General Family Medicine 06/16/19 documented as of this encounter
--- OUTSIDE RECORDS SUMMARY | 2025-05-02 14:45 | XMS_ITS | Encounter Summary ---
Author Organization [facility] Address [id number] [address] [place] [address] Care Team Providers Care Copy Chief Name Role Phone Ramone Duque MD Primary Care Provider [phone] Reason for Visit * Reason Comments Post-op FP R HIP SCOPE . Encounter Details Date Type Department Care Team (Late st Contact Info) Description 05/02/2025 2:45 PM EDT Office Visit [facility] [address] [place] [address] Levy Harrison MD [address] [place] [place] [address] Right hip pain (Primary Dx) Social History Tobacco Use Types Packs/Day Years [...] AM EST documented as of this encounter Last Filed Vital Signs Vital Sign Reading Time Taken Comments Blood Pressure - - Pulse - - Temperature - - Respiratory Rate - - Oxygen Saturation - - Inhaled Oxygen Concentration - - Weight 89.4 kg (197 lb) 05/02/2025 2:49 PM EDT Height 170.2 cm (5' 7 ) 05/02/2025 2:49 PM EDT Body Mass Index 30.85 05/02/2025 2:49 PM EDT documented in this encounter Progress Notes * Levy Harrison MD - 05/02/2025 2:45 PM EDT Chief Complaint Postoperative right hip History of Present Illness Patient returns to clinic today for follow-up approximately 2 weeks status-post hip arthroscopy with labrum debridement, femoral osteochondroplasty, capsular repair. Doing well. Minimal pain. No complaints. Physical examination right hip- Wounds clean, dry, and intact without drainage. Minimal swelling. Neurovascularly intactin the extremity. Minimal pain with light passive motion of the surgical hip. Negative shante's test. Radiology: Xrays of the right hip - AP and Lateral reviewed. No acute osseous abnormality. Assessment Doing well 2 weeks status-post hip arthroscopy. Plan is to continue crutches and 20 pounds foot-flat weight bearing and brace for 2 more weeks. Begin PT. Follow- up 4 weeks. All questions answered. documented in this encounter Plan of Treatment Upcoming Encounters Date Type Department Care Team (Late st Contact Info) Description 05/30/2025 1:45 PM EDT Office Visit [facility] [address] [place] [phone] Levy Harrison MD [address] [place] [address] [place] [phone] 07/07/2025 2:00 PM EDT Office Visit [facility] [address] [place] [address] Seth Evans MD [address], [facility] [address] [place] [address] 2025 12:30 PM EST Office Visit [facility] [address] [facility] [place] [phone] Levy Harrison MD [address] [facility] [place] [address] 09/12/2025 10:40 AM EST Office Visit [facility] [address] [facility] [place] [place] [phone] Levy Harrison MD [address] [facility] [place] [phone] documented as of this encounter Results * X-ray hip right [...] this encounter Visit Diagnoses Diagnosis Right hip pain- Primary Pain in joint, pelvic region and thigh Right hip pain Pain in joint, pelvic region and thigh documented in this encounter Additional Health Concerns Assessment Noted Time PHQ-9 Depression Total Score: 0 10/27/19 24 3:50 PM EST documented as of this encounter Care Teams Copy Chief Relationship Specialty Start Date End Date Ramone Duque MD PCP - General Family Medicine 06/16/19 documented as of this encounter
--- OUTSIDE RECORDS SUMMARY | 2025-05-03 17:00 | XMS_ITS | Encounter Summary ---
Author Organization [facility] Healthcare Address [address] [facility] [place] [address] Care Team Providers Care Woodworking Machine Setter Name Role Phone Ramone Duque MD Primary Care Provider [phone] Reason for Visit * Rehabilitation - Outpatient (Routine) - Authorized Specialty Diagnoses / Procedures Referred By Brijesh blackman Referred To Contact Physical Therapy Diagnoses Other specified joint disorders, right hip Other articular cartilage disorders, right hip Procedures [place] PHYSICAL THERAPY EVALUATION HIGH COMPLEX 45 MINS Levy Harrison MD [address] [place] [address] Phone: tel: fax: John Francis, PT [address] [place] [address] Phone: tel: fax: Referral ID Status Reason Start Date Expiration Date V isits Requested Visits Authorized [id number] Authorized 05/02/2025 09/07/2025 25 25 Encounter Details Date Type Department Care Team (Late st Contact Info) Description 05/03/2025 5:00 PM EDT Evaluation [facility] [address] [place] [address] John Francis, PT [address] [place], [place] [id number] Right hip pain (Primary Dx); Femoroacetabular impingement of right hip; Articular cartilage disorder of right hip Social History Tobacco Use Types Packs/Day Years Used Date Smoking Tobacco: Former Cigarettes 0.5 12.2 0 03/17/1989 - 05/18/2001 Smokeless Tobacco: Never Alcohol Use Standard Drinks/Week Comments Yes 3 (1 standard drink = 0.6 oz pur e alcohol) Comments Unknown Sex and Gender Information Value Date Recorded Sex Assigned at Not on file Legal Sex Female 7:20 PM EDT Gender Identity Not on file Sexual Orientation Not on file documented as of this encounter Progress Notes * John Francis, PT - 05/03/2025 5:00 PM EDT Images from the original note were not included. Physical Therapy Physical Therapy Evaluation Visit Patient Name: Glory Pritchard Today's Date: 05/03/2025 Encounter Diagnoses Name Primary? Right hip pain Yes Femoroacetabular impingement of right hip Articular cartilage disorder of right hip Visit number: 1 Subjective Glory Pritchard 49 y.o. female presents to physical therapy w/ chief c/o R hip pain. Mechanism of Onset: status-post hip arthroscopy with labrum debridement, femoral osteochondroplasty, capsular repair 04/19/25 due to REGINA. 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 Flex and abd as tolerated pain free 3 weeks: IR at 90 to 20 deg, ER at 90 to 30 deg, prone ER to 20 deg. Hip ext to 0 degrees 2 more weeks 20# FFWB after IE Objective Enters with hip brace on, yudith crutches FFWBing very min, reports putting a little more wt through hip at times no issues. PROM: to 110 flex, abd to 30, IR to 10, ER to 20 pain free, ext N/A at this time R knee strength at least 4/5 flex and ext no issues R hip strength not assessed at this time due to post-op status/protocol/precautions Pt able to lay on stomach and propped on elbows pain free no pulling noted. No s/s of infection or DVT noted, stitches out, healing. Treatment Interventions Education: HEP education with demonstration with handout and review, Educated on Eval Findings and POC, precautions/protocol and importance x 10 min self care/home maintenance Manual Therapy: PROM in supine today x 10 min within precautions and pain free ROM, some difficultyrelaxing but went well overall, add Sling and prone as appropriate. Add STM/massage prn as well. Therapeutic Exercise: per LISA grid, ROM, flexibility, strength, endurance x 15 min sup, advised on limiting ROM with IR/ER, abd, flex today and keeping all pain free. Tolerated all well no c/o increased pain Gait Training: educated and demo on # FF 2 more weeks an importance x 5 min Modalities: Declined Assessment/Plan R hip pain, decreased ROM/flexibility, strength, endurance causing impaired gait and functional mobility s/p R hip REGINA/labral repair on 04/19/25 Patient Goals Short Term Goal #1: pt will demo R hip AROM grossly WNL all planes pain free Short Term Goal #2: pt will demo normalized quality of gait non-antalgic without AD including reciprical patter up and down steps pain free Short Term Goal #3: pt will demo R hip strenght grossly greater than or equal to 4+/5 MMT all planes pain free Short Term Goal #4: pt will be cleared for all ADLs pending Dr approval and ind with HEP for maintenance/progression prn at DC from PT Pt will benefit from skilled PT to address the above impairments for 1-2x/week for 12-16 weeks per post SX protocol and pending pt needs/progress moving forward as well as Dr's orders. I hereby deem this POC medically necessary. Please sign below. Date: documented in this encounter Plan of Treatment Upcoming Encounters Date Type Department Care Team (Late st Contact Info) Description 05/12/2025 4:30 PM EDT Treatment [facility] [address] [place] [address] Day Vivar, HEAD OF PRODUCT [address] [place] [address] 05/17/2025 4:00 PM EDT Treatment [facility] [address] [place] [phone] Day Vivar, [employer] OF [employer]ODUCT [address] [place] [address] 05/19/2025 4:30 PM EDT Treatment [facility] [address] [place] [phone] Cb Day, HEAD OF PRODUCT [address] [place] [address] 05/24/2025 4:00 PM EDT Treatment [facility] [address] [place] [phone] Aide Wong, HEAD OF PRODUCT 05/26/2025 4:30 PM EDT Treatment [facility] [address] [facility] [place] [phone] Cb Day, HEAD OF PRODUCT [address] [place] [address] documented as of this encounter Visit Diagnoses Diagnosis Right hip pain- Primary Pain in joint, pelvic region and thigh Femoroacetabular impingement of right hip Articular cartilage disorder of right hip documented in this encounter Care Teams Woodworking Machine Setter Relationship Specialty Start Date End Date Ramone Duque MD PCP - General Family Medicine 09/12/23 documented as of this encounter
--- OUTSIDE RECORDS SUMMARY | 2025-05-10 16:00 | XMS_ITS | Encounter Summary ---
Author Organization [facility] Healthcare Address [address] [facility] [place] [address] Care Team Providers Care Dredge Runner Name Role Phone Ramone Duque MD Primary Care Provider [phone] Reason for Visit * Rehabilitation - Outpatient (Routine) - Authorized Specialty Diagnoses / Procedures Referred By Brijesh blackman Referred To Contact Physical Therapy Diagnoses Other specified joint disorders, right hip Other articular cartilage disorders, right hip Procedures [place] PHYSICAL THERAPY EVALUATION HIGH COMPLEX 45 MINS Levy Harrison MD [address] [place] [address] Phone: tel: fax: John Francis, PT [address] [place] [address] Phone: tel: fax: Referral ID Status Reason Start Date Expiration Date V isits Requested Visits Authorized [id number] Authorized 05/02/2025 09/07/2025 25 25 Encounter Details Date Type Department Care Team (Late st Contact Info) Description 05/10/2025 4:00 PM EDT Treatment [facility] [address] [place] [phone] Aide Wong PTA Right hip pain (Primary Dx); Femoroacetabular impingement [...] as of this encounter Progress Notes * Aide Wong, PHYSIOLOGIST - 05/10/2025 4:00 PM EDT Images from the original note were not included. Physical Therapy Physical Therapy Treatment Visit Patient Name: Glory Pritchard Today's Date: 05/10/2025 Encounter Diagnoses Name Primary? Right hip pain Yes Femoroacetabular impingement of right hip Articular cartilage disorder of right hip Visit number: 2 Time in: 3:57 pm Time out: 4:37 pm Supervised time: 35 min Total time: 40 min Subjective Glory Pritchard 49 y.o. female presents to physical therapy w/ chief c/o R hip pain. Mechanism of Onset: status-post hip arthroscopy with labrum debridement, femoral osteochondroplasty, capsular repair 04/19/25 due to REGINA. Current deficits: pain, weakness, decreased ROM/flexibility, impaired gait and functional mobility Pain: no pain, stiffness and fatigue if increased activity, compliant with HEP and icing. Admits to putting more weight through RLE than allowed at times but with no pain. 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 Treatment Interventions Education: HEP education with demo Manual Therapy:x15 min PROM in supine today within precautions and pain free ROM, STM to anterior Rhip. Therapeutic Exercise:x 20 min per LISA grid, ROM, flexibility, strength, endurance, advised on limiting ROM with IR/ER, abd, flex and keeping all pain free. X5 min bike warmup Gait Training: Modalities: Declined Assessment/Plan R hip pain, decreased ROM/flexibility, strength, endurance causing impaired gait and functional mobility s/p R hip REGINA/labral repair on 04/19/25 Pt tolerates progressed volumes per grid well today. No pain throughout, only complains of fatigue throughout. Good response to manual stretching and STM. Pt 3 weeks post op - added ER/IR stretching today in prone and supine per guidelines. Will ice at home. Continue to progress as able per protocol. Cosigned by John Francis, PT at 05/10/2025 4:50 PM EDT documented in this encounter Plan of Treatment Upcoming Encounters Date Type Department Care Team (Late st Contact Info) Description 05/12/2025 4:30 PM EDT Treatment [address] [place] [phone] Day Vivar PTA [address] [place] [address] 05/17/2025 4:00 PM EDT Treatment [facility] [address] [place] [phone] Day Vivar PTA [address] [place] [address] 05/19/2025 4:30 PM EDT Treatment [facility] [address] [place] [phone] Day Vivar PTA [address] [place] [address] 05/24/2025 4:00 PM EDT Treatment [facility] [address] [place] [place] [phone] Aide Wong, [facility] 05/26/2025 4:30 PM EDT Treatment [facility] [address] [place] [phone] Vivar Day, [facility] [address] [place] [address] documented as of this encounter Visit Diagnoses Diagnosis Right hip pain- Primary Pain in joint, pelvic region and thigh Femoroacetabular impingement of right hip Articular cartilage disorder of right hip documented in this encounter Care Teams Dredge Runner Relationship Specialty Start Date End Date Ramone Duque MD PCP - General Family Medicine 09/12/23 documented as of this encounter
[2025-05-12 11:46] VITALS: BP 190/91; PULSE 61; TEMP 36.8; O2SAT 96; BMI 29.0
--- OUTSIDE RECORDS SUMMARY | 2025-05-12 11:49 | XMS_ITS | Encounter Summary ---
Author Organization [facility] Healthcare Address [address] [facility] [place] [address] Care Team Providers Care Senior Director Of [employer] Name Role Phone Ramone Duque MD Primary Care Provider [phone] Encounter Details Date Type Department Care Team (Latest Contact Info) Description 05/10/2025 Travel Social History Tobacco Use Types Packs/Day Years [...] on file documented as of this encounter Plan of Treatment Upcoming Encounters Date Type Department Care Team (Late st Contact Info) Description 05/12/2025 4:[address] [facility] [address] [place] [phone] Day Vivar, ELECTRONIC BENCH TECHNICIAN [address] [place] [address] 05/17/2025 4:[address] [facility] [address] [place] [address] Day Vivar, ELECTRONIC BENCH TECHNICIAN [address] [place] [address] 05/19/2025 4:[address] [facility] [address] [place] [address] Day Vivar, ELECTRONIC BENCH TECHNICIAN [address] [facility] [place] [address] 05/24/2025 4:[address] [facility] [address] [place] [phone] Aide Wong, [facility] 05/26/2025 4:[address] [facility] [address] [place] [phone] Day Vivar, [facility] [address] [place] [address] documented as of this encounter Visit Diagnoses Not on filedocumented in this encounter Care Teams Senior Director Of [employer] Relationship Specialty Start Date End Date Ramone Duque MD PCP - General Family Medicine 09/12/23 documented as of this encounter
--- OUTSIDE RECORDS SUMMARY | 2025-05-12 11:49 | XMS_ITS | Clinical Summary ---
Author Organization [employer] tem Address [id number] [address] [place] [address] Care Team Providers Care Titrator Name Role Phone Ramone Duque MD Primary Care Provider [phone] Allergies No known active allergies Medications escitalopram (LEXAPRO) 20 mg tabletIndicati ons:generalize d anxiety disorder Take 1 tablet (20 mg total) by mouth in the morning. Indications: repeated episodes of anxiety. Active Lactobac no.41/Bifidoba ct no.7 (PROBIOTIC-10 ORAL) Take by mouth in the morning. Active cetirizine (ZyrTEC) 10 mg tablet 4 Active levothyroxine (SYNTHROID, LEVOTHROID) 75 MCG tablet Take 1 tablet (75 mcg total) by mouth in the morning. 5 Active lisinopriL (PRINIVIL,ZEST RIL) 20 mg tabletIndicati ons:hypertensi on Take 1 tablet (20 mg total) by mouth in the morning. Indications: high blood pressure. Active simvastatin (ZOCOR) 20 mg tabletIndicati ons:hyperchole sterolemia Take 1 tablet (20 mg total) by mouth nightly Indications: high cholesterol. 5 Active fluticasone propionate (FLONASE) 50 mcg/actuation nasal spray Administer 1 spray into each nostril in the morning. Active aspirin 81 mg Take 1 tablet (81 mg total) by mouth in the morning and 1 tablet (81 mg total) before bedtime. Do all this for 30 days. To start after aspirin 325 mg complete. 60 tablet 5 09/11/20 25 Active indomethacin SR (INDOCIN SR) 75 mg CR capsule Take 1 capsule (75 mg total) by mouth in the morning. With food. 4 capsule 5 Active naproxen (NAPROSYN) 500 mg tablet Take 1 tablet (500 mg total) by mouth in the morning and 1 tablet (500 mg total) in the evening. Take with meals. Do all this for 30 days. Begin taking after completing indomethacin. 60 tablet 5 05/19/20 25 Active pantoprazole (PROTONIX) 40 mg EC tablet Take 1 tablet (40 mg total) by mouth in the morning. 10 tablet 5 Active ondansetron (ZOFRAN) 4 mg tablet Take 1 tablet (4 mg total) by mouth every 8 (eight) hours as needed for nausea or vomiting. 20 tablet 5 Active meloxicam (MOBIC) 15 mg tablet Take 1 tablet (15 mg total) by mouth in the morning. 5 04/19/20 25 Discontinu ed(Stop Taking at Discharge) aspirin 325 mg EC tablet Take 1 tablet (325 mg total) by mouth in the morning and 1 tablet (325 mg total) before bedtime. Do all this for 4 days. Take this while taking indomethacin. 8 tablet 5 04/23/20 25 HYDROcodone-ac etaminophen (NORCO) 5-325 mg per tabletIndicati ons:Post-opera tive pain Take 1-2 tablets by mouth every 6 (six) hours as needed for pain for up to 5 days. Max Daily Amount: 8 tablets 40 tablet 5 04/24/20 25 Active Problems Problem Noted Date Diagnosed Date Breast mass, right 10/02/2023 Encounters Date Type Department Care Team Description 05/02/2025 2:45 PM EDT Office Visit [facility] [address] [place] [address] Levy Harrison MD Right hip pain (Primary Dx) 05/02/2025 2:25 PM EDT Ancillary Procedure [facility] [address] [place] [address] Right hip pain 05/02/2025 Orders Only [facility] [address] [place] [address] Lani Robb RN Femoroacetabular impingement of right hip (Primary Dx); Degenerative tear of acetabular labrum of right hip 05/02/2025 Travel 04/19/2025 10:15 AM EDT - 04/19/2025 12:15 PM EDT Surgery [facility] [address] [place] [address] Levy Harrison MD ARTHROSCOPIC FEMOROPLASTY HIP/ ACETABULAR RIM TRIM/CAPSULAR REPAIR/LOOSE BODY REMOVAL [46895 (CPT )] 04/19/2025 9:51 AM EDT Anesthesia Event [facility] [address] [place] [address] Martin Byrd MD Stokey, Lynn A, RN RADIATION ONCOLOGY-UNDERWRITING DIRECTOR 04/19/2025 7:37 AM EDT - 04/19/2025 2:04 PM EDT Hospital Encounter [facility] [address] [place] [address] Levy Harrison MD Femoroacetabular impingement of right hip (Primary Dx); Post-operative pain Discharge Disposition: Home 04/19/2025 Travel 04/13/2025 Orders Only [facility] [address] [place] [address] Levy Harrison MD Femoroacetabular impingement of right hip (Primary Dx) 04/13/2025 Telephone [facility] [address] [place] [address] Lani Robb RN Move surgery up 04/12/2025 10:45 AM EDT Office Visit [facility] [address] [place] [address] Tavares Hayes MD Other secondary osteoarthritis of left hip (Primary Dx); Femoroacetabular impingement of both hips; Degenerative tear of acetabular labrum of right hip 04/10/2025 Travel 04/04/2025 1:45 PM EDT Procedure [facility] [address] [place] [phone] Pre-op testing (Primary Dx) 04/04/2025 Travel 03/29/2025 6:03 PM EDT - 03/29/2025 11:59 PM EDT [facility] [place] [address] [place] [address] Levy Harrison MD Femoroacetabular impingement of both hips; Degenerative tear of acetabular labrum of right hip Discharge Disposition: Home 03/28/2025 Travel 03/18/2025 8:10 AM EDT Ancillary Procedure [facility] [address] [place] [address] Hip pain, acute, right 03/18/2025 8:05 AM EDT Office Visit [facility] [address] [place] [address] Levy Harrison MD Femoroacetabular impingement of both hips (Primary Dx); Other secondary osteoarthritis of left hip 03/18/2025 Orders Only [facility] [address] [place] [address] Lani Robb RN Femoroacetabular impingement of both hips (Primary Dx); Degenerative tear of acetabular labrum of right hip 03/16/2025 Travel from Last 3 Months Family History Medical History Relation Name Comments Cancer Father melanoma of bra in Cervical cancer Maternal Grandmother Heart attack Maternal Grandmother Breast cancer Mother Caty Diabetes Mother Caty Stroke Mother Caty Stroke Paternal Grandmother Anesthesia problems Neg Hx Bleeding Disorder Neg Hx Clotting disorder Neg Hx Colon cancer Neg Hx Ovarian cancer Neg Hx Relation Name Status Comments Father Maternal Grandfather Maternal Grandmother Mother Caty Paternal Grandfather Paternal Grandmother Social History Tobacco Use Types Packs/Day Years Used Date Smoking Tobacco: Former Cigarettes 1 13.7 S tarted: 2012 Smokeless Tobacco: Never Tobacco Cessation:Counseling Given: Not Answered Alcohol Use Standard Drinks/Week Comments Yes 0 [...] Orientation Straight 09/03/2023 6: 01 AM EST Last Filed Vital Signs Vital Sign Reading Time Taken Comments Blood Pressure 125/78 04/19/2025 1:30 PM EDT Pulse 78 04/19/2025 1:30 PM EDT Temperature 36.4 C (97.5 F) 04/19/2025 12:01 PM EDT Respiratory Rate 12 04/19/2025 1:30 PM EDT Oxygen Saturation 92% 04/19/2025 1:30 PM EDT Inhaled Oxygen Concentration - - Weight 89.4 kg (197 lb) 05/02/2025 2:49 PM EDT Height 170.2 cm (5' 7 ) 05/02/2025 2:49 PM EDT Body Mass Index 30.85 05/02/2025 2:49 PM EDT Plan of Treatment Upcoming Encounters Date Type Department Care Team (Late st Contact Info) Description 05/30/2025 1:45 PM EDT Office Visit [facility] [address] [place] [address] Levy Harrison MD [address] [place] [address] 07/07/2025 2:00 PM EDT Office Visit [facility] [address] [facility] [address] [place] [address] Seth Evans MD [address], [facility] [address] [place] [address] 2025 12:30 PM EST Office Visit [facility] [place] [facility] [address] [facility] [place] [address] eLvy Harrison MD [address] [facility] [place] [address] 09/12/2025 10:40 AM EST Office Visit [facility] [place] [facility] [address] [facility] [place] [address] Levy Harrison MD [address] [facility] [place] [address] Health Maintenance Due Date Last Done Comments Adult BMI Follow Up Plan 1991 DTaP,Tdap and Td Vaccines (1 - Tdap) 1992 COVID-19 Vaccine (2023-2 5 season) 2024 2023, 07/03/2021, 11/23/2020, Additional history exists Depression Screening 10/27/2024 10/27/2023 Influenza Vaccine 05/09/2025 2023, , 06/02/2017, Additional history exists Tobacco Screening 04/19/2026 04/19/2025 Adult BMI Screening 05/02/2026 05/02/2025 Pap Smear 10/27/2026 10/27/2023, 10/09, 06/16/2019, Additional history exists Zoster (Shingles) Vaccine Completed 11/03/2023, Medical Devices Not on file Procedures Procedure Name Priority Date/Time Associated Diagnosis Comments XR HIP RT 2-3 VIEWS W OR WO PELVIS Routine 05/02/2025 2:28 PM EDT Right hip pain XR HIP RT 1 VIEW W OR WO PELVIS Routine 04/19/2025 11:43 AM EDT Femoroacetabular impingement of right hip GA INJECT NERV BLCK,OTHR PERIPH NERV Routine 04/19/2025 11:12 AM EDT PM PERIPHERAL BLOCK Routine 04/19/2025 1 1:12 AM EDT GA AN ELECTIVE ENDOTRACHEAL AIRWAY Routine 04/19/2025 10:01 AM EDT GA ARTHROSCOPY HIP W/LABRAL REPAIR 04/19/2025 9:51 AM EDT HIP FEMORAL ACETABULAR IMPINDGEMENT RIGHT, LABRUM TEAR RIGHT Case Notes [facility] 90MIN WORKING/ PRE-OP BLOCK, LARGE C-ARM, ARTHREX, JACKELYN Special Needs PRE-OP BLOCK, LARGE C-ARM, ARTHREX, JACKELYN GA ARTHROSCOPY HIP W/FEMOROPLASTY 04/19/2025 9:51 AM EDT HIP FEMORAL ACETABULAR IMPINDGEMENT RIGHT, LABRUM TEAR RIGHT Case Notes [facility] 90MIN WORKING/ PRE-OP BLOCK, LARGE C-ARM, ARTHREX, JACKELYN Special Needs PRE-OP BLOCK, LARGE C-ARM, ARTHREX, JACKELYN BASIC METABOLIC PANEL Routine 04/04/2025 2:49 PM EDT Pre-op testing ECG 12-LEAD Routine 04/04/2025 2:22 PM EDT Pre-op testing CT HIP RT WO CONT Routine 03/30/2025 7:3 1 AM EDT Femoroacetabular impingement of both hips Degenerative tear of acetabular labrum of right hip FL AMB FLUORO GUIDED HIP RIGHT INJ Routine 03/18/2025 2:55 PM EDT MR HIP RT WO CONT Routine 03/18/2025 2:5 4 PM EDT XR HIP RT 2-3 VIEWS W OR WO PELVIS Routine 03/18/2025 8:10 AM EDT Hip pain, acute, right HIGH RISK HPV W/FEI Routine 10/27/2023 4:30 AM EST Smear, vaginal, as part of routine gynecological examination from Last 3 Months or Most Recently Relevant to Health Maintenance Results * X-ray hip right 2-3 views with or without pelvis (05/02/2025 2:28 PM EDT) Only the most recent of2 resultswithin the time period is included. Anatomical Region Laterality Modality Lower Extremities, MSK, Hip Right Comp uted Radiography Narrative 05/02/2025 2:46 PM EDT AP and lateral x-rays right hip reviewed. Stable appearing joint space no acute osseous abnormalities this is my independent interpretation. us Levy Harrison MD IMG DIAGNOSTIC IMAGING ORDERABLE S Final Result * X-ray hip right 1 view with or without pelvis (04/19/2025 11:43 AM EDT) Anatomical Region Laterality Modality Lower Extremities, MSK, Hip Right Radi o Fluoroscopy 04/19/2025 1:09 PM EDT Narrative 04/19/2025 1:09 PM EDT XR HIP RT 1 VIEW W OR WO PELVIS INDICATION: Right hip pain Femoroacetabular impingement of right hip. FINDINGS: Intraoperative fluoroscopy provided during right hip orthopedic procedure. No radiologist present during the examination. Reference Air Kerma: 2.8 mGy IMPRESSION: Intraoperative fluoroscopy provided as above. See operative report for additional details. Finalized by Perfecto Chavez MD on 04/19/2025 1:09 PM Procedure Note Perfecto Chavez MD - 04/19/2025 XR HIP RT 1 VIEW W OR WO PELVIS INDICATION: Right hip pain Femoroacetabular impingement of right hip. FINDINGS: Intraoperative fluoroscopy provided during right hip orthopedic procedure.No radiologist present during the examination. Reference Air Kerma: 2.8 mGy IMPRESSION: Intraoperative fluoroscopy provided as above. See operative report foradditional details. Finalized by Perfecto Chavez MD on 04/19/2025 1:09 PM us Levy Harrison MD IMG DIAGNOSTIC IMAGING ORDERABLE S Final Result * PM PERIPHERAL BLOCK, GA INJECT NERV BLCK,OTHR PERIPH NERV (04/19/2025 11:12 AM EDT) Martin Fletcher MD - 04/19/2025 11:12 AM EDT Martin Byrd MD 04/19/2025 11:13 AM Peripheral Block Patient Location: Pre-op Start Time: 04/19/2025 9:38 AM End Time: 04/19/2025 9:44 AM Reason for Block: Surgical/Post-op Pain Management IV In situ: Peripheral General Information and Staff: Service Provider: Martin Byrd MD Surgeon: Levy Harrison MD Placed by: Martin Byrd MD Checklist: Patient Identified, IV Checked, Site Marked, Risks and Benefits Discussed, Surgical Consent, Monitors and Equipment Checked, Pre-op Evaluation and Timeout Performed Fire Risk Assessment Score: 1 Positioning and Technique: Patient Position: Supine Prep: Chlorhexidine Monitoring: Heart Rate, Mcat Tutor, Continuous Pulse Ox and Blood Pressure Oxygen Source: Nasal Cannula Location: [facility] Laterality: Right Injection Technique: Single Shot Number of Attempts: 1 Placement Technique: Ultrasound Guided Anesthesia Block Medication Given: bupivacaine PF (MARCAINE) injection 0.5% - infiltration 20 mL - 04/19/2025 9:43:00 AM Anxiolytics Given: Yes Needle: Needle Type: Long-Bevel Needle Gauge: 20 G Needle Length: 10 cm Needle Localization: Ultrasound Guidance Needle Insertion Depth: 7 cm Assessment: Injection Assessment: Incremental Injection, No Paresthesia on Injection, Negative Aspiration for Heme and No S/S intravascular or Intraneural Injection Paresthesia Pain: None Heart Rate Change: No Slow Fractionated Injection: Yes Comments: 20cc of 0.5% Bupivacaine injected under psoas tendon under ultrasound visualization Martin Byrd MD ANESTHESIA ORDERABLES Final Resu lt * GA AN ELECTIVE ENDOTRACHEAL AIRWAY (04/19/2025 10:01 AM EDT) Neema Quintanilla APRN-CRNA - 04/19/2025 10:01 AM EDT JACLYN Dunlap 04/19/2025 10:35 AM Airway Patient location during procedure: OR Urgency: Elective Date/Time: 04/19/2025 10:01 AM Airway not difficult IV In Situ: Peripheral General Information and Staff Service Provider: Martin Byrd MD UNDERWRITING DIRECTOR: JACLYN Dunlap Placed by: JACLYN Dunlap Patient Identified, IV Checked, Risks and Benefits Discussed, Surgical Consent, Monitors and Equipment Checked, Pre-op Evaluation and Timeout Performed Fire Risk Assessment Score: 0 Consent for Emergent Airway (if performed for an anesthetic, see related documentation for consents) Risks and benefits: risks, benefits and alternatives were discussed Indications and Patient Condition Preoxygenated: yesPatient position: Supine MILS maintained throughout Mask difficulty assessment: Vent By Mask Indications for airway management: Anesthesia Complications: No Complicating Factors: No Final Airway Details Final airway type: ETT Endotracheal airway: Cuffed, Straight and ETT - Single Lumen Techniques used for successful ETT Placement: Direct Laryngoscopy and With Stylet Cormack-Lehane Classification: Grade I Endotracheal tube insertion site: Oral No Bite Block Placed Dentition Check Pre: See Pre-Evaluaton documentation Post Intubation Trauma? No Visibility: Cords Clear Blade: Oro Blade size: #2 Placement verified by: chest auscultation, capnography and symmetrical chest wall movement ETT size: 7.0 mm Inital cuff pressure (cm H2O): 0 Cuff volume (mL): 3 Measured from: Lips Secured at (cm): 21 Number of other approaches attempted: 0 Number of attempts at approach: 1 us Martin Byrd MD ANESTHESIA ORDERABLES Final Resu lt * (ABNORMAL) Basic Metabolic Panel (04/04/2025 2:49 PM EDT) SODIUM 138 134 - 146 mmol/L 04/04/2025 6:11 PM EDT [facility] POTASSIUM 4.0 3.5 - 5.0 mmol/L 04/04/2025 6:11 PM EDT [facility] CHLORIDE 104 98 - 109 mmol/L 04/04/2025 6:11 PM EDT [facility] CARBON DIOXIDE 24 22 - 32 mmol/L 04/04/2025 6:11 PM EDT [facility] ANION GAP 10 5 - 15 mmol/L 04/04/2025 6:11 PM EDT [facility] BLOOD UREA NITROGEN 17 5 - 23 mg/dL 04/04/2025 6:11 PM EDT [facility] CREATININE 0.54 0.40 - 1.00 mg/dL 04/04/2025 6:11 PM EDT [facility] Comment:METHOD TRACEABLE TO IDMS STANDARD GLUCOSE 100(H) 65 - 99 mg/dL 04/04/2025 6:11 PM EDT [facility] CALCIUM 9.2 8.5 - 10.5 mg/dL 04/04/2025 6:11 PM EDT [facility] EGFR Non-Race Dependent >90 >=60 ml/min/1.7 3sq.m 04/04/2025 6:11 PM EDT [facility] Comment: Reported eGFR is based on the CKD-EPI 2020 equation that does not use a race coefficient. Blood Venous blood / Unknown Venipuncture / Unknown 04/04/2025 2:49 PM EDT 04/04/2025 2:49 PM EDT Aristides Duque MD LAB BLOOD ORDERABLES Final Res ult [facility] [address] [place] [address], [place] [phone] * ECG 12 lead (04/04/2025 2:22 PM EDT) 04/04/2025 2:22 PM EDT Narrative [facility] - 04/04/2025 7:27 PM EDT Aristides Duque MD ECG ORDERABLES Final Result [facility] * CT hip right without contrast (03/30/2025 7:31 AM EDT) Anatomical Region Laterality Modality MSK, Lower Extremities, Hip, MSK Covera Right Computed Tomography 04/03/2025 4:49 PM EDT Narrative 04/03/2025 4:59 PM EDT Clinical information: Impingement. Pain. Comparison: None. Procedure: Routine CT pelvis obtained without contrast utilizing 1.25 mm axial sections. Sagittal and coronal reformatted images with 3-D Maximum intensity projection reconstructions constructed under concurrent physician supervision on a independent workstation for evaluation of hip anatomy. All CT scans at this facility use dose modulation, iterative reconstruction, and/or weight based dosing when appropriate to reduce radiation dose to as low as reasonably achievable. Findings: Subarticular sclerosis and joint space narrowing are present at the hips. No acute osseous abnormality is present. The some marginal new bone formation at the hip inferiorly. Acetabular Version: Cranial: 10.6 degrees of anteversion Central: 22.2 degrees of anteversion Caudal: 20.4 degrees of anteversion Alpha Angle: 65 degrees Lateral Center Edge Angle: 39 degrees 3-D reformatted images confirm findings on the axial sequences. Impression: Right hip degenerative changes with morphologic characterization above. Finalized by Francis Fontanez MD on 04/03/2025 4:59 PM Procedure Note Francis Fontanez MD - 04/03/2025 Clinical information: Impingement. Pain. Comparison: None. Procedure: Routine CT pelvis obtained without contrast utilizing 1.25 mmaxial sections. Sagittal and coronal reformatted images with 3-D Maximumintensity projection reconstructions constructed under concurrentphysician supervision on a independent workstation for evaluation of hipanatomy. All CT scans at this facility use dose modulation, iterative reconstruction,and/or weight based dosing when appropriate to reduce radiation dose to aslow as reasonably achievable. Findings: Subarticular sclerosis and joint space narrowing are present at the hips.No acute osseous abnormality is present. The some marginal new boneformation at the hip inferiorly. Acetabular Version: Cranial: 10.6 degrees of anteversion Central: 22.2 degrees of anteversion Caudal: 20.4 degrees of anteversion Alpha Angle: 65 degrees Lateral Center Edge Angle: 39 degrees 3-D reformatted images confirm findings on the axial sequences. Impression: Right hip degenerative changes with morphologic characterization above. Finalized by Francis Fontanez MD on 04/03/2025 4:59 PM us Levy Harrison MD IMG CT ORDERABLES Final Result * Fluoroscopy AMB fluoro guided hip RIGHT inj (03/18/2025 2:55 PM EDT) Anatomical Region Laterality Modality Hip Radiographic Tiffanie ging us Not In System Ref Prov AMB FLUOROSCOPY ORDERABLE S Final Result * MR hip right without contrast (03/18/2025 2:54 PM EDT) Anatomical Region Laterality Modality MSK, Hip, Lower Extremities, Acetabulum, MSK Cov era Right Magnetic Resonance us Not In System Ref Prov IMG MRI ORDERABLES Final Result * High risk HPV w/fei (10/27/2023 4:30 AM EST) Hpv specimen type ThinPrep 10/28/2023 4:30 AM EST [facility] Hpv 16 Negative Negative^N egative 10/28/2023 1:07 PM EST [facility] Hpv 18 Negative Negative^N egative 10/28/2023 1:07 PM EST [facility] Other high risk hpv Negative Negative^N egative 10/28/2023 1:07 PM EST [facility] Comment: HPV types 31,33,35,39,45,52,56,58,59,66 and 68 DNA were undetectable. THINP 10/27/2023 4:30 AM EST 10/28/2023 4:31 AM EST us Cristy Maurer RN RADIATION ONCOLOGY-CN LAB BLOOD ORDERABLES F inal Result [address] [place] [address] [facility] [address] [place] [address] from Last 3 Months or Most Recently Relevant to Health Maintenance Insurance [employer] Care Teams Titrator Relationship Specialty Start Date End Date Ramone Duque MD PCP - General Family Medicine 06/16/19
--- OUTSIDE RECORDS SUMMARY | 2025-05-12 11:49 | XMS_ITS | Encounter Summary ---
Author Organization [employer] tem Address [id number] [address] [place] [address] Care Team Providers Care Needleworker Name Role Phone Ramone Duque MD Primary Care Provider [phone] Reason for Referral * Rehabilitation - Outpatient (Routine) - Authorized Specialty Diagnoses / Procedures Referred By Brijesh blackman Referred To Contact Rehabilitation Diagnoses Femoroacetabular impingement of right hip Degenerative tear of acetabular labrum of right hip Levy Harrison MD [address] [place] [address] Phone: tel: fax: [facility] [address] [address] Phone: tel: fax: Referral ID Status Reason Start Date Expiration Date Visits Requested Visits Authorized [id number] Authorized Specialty Services Required 05/02/2025 11/02/2025 12 12 Encounter Details Date Type Department Care Team (Late st Contact Info) Description 05/02/2025 Orders Only [facility] [address] [place] [address] Lani Robb RN Femoroacetabular impingement of right hip (Primary Dx); Degenerative tear of acetabular labrum of right hip Social History Tobacco Use [...] 1:45 PM EDT Office Visit [facility] [address] [facility] [address] Levy Harrison MD [address] [place] [address] 07/07/2025 2:00 PM EDT Office Visit [facility] [address] [facility] [address] [place] [address] Seth Evans MD [address], [facility] [address] [place] [address] 2025 12:30 PM EST Office Visit [facility] [address] [place] [address] Levy Harrison MD [address] [place] [address] 09/12/2025 10:40 AM EST Office Visit [facility] [address] [place] [address] Levy Harrison MD [address] [place] [address] Scheduled Referrals Name Type Priority Associated Diagnoses Order Schedule Ambulatory referral to Physical Therapy Outpatient Referral Routine Femoroacetabular impingement of right hip Degenerative tear of acetabular labrum of right hip 1 Occurrences starting 05/02/2025 until 05/02/2026 documented as of this encounter Visit Diagnoses Diagnosis Femoroacetabular impingement of right hip- Primary Degenerative tear of acetabular labrum of right hip documented in this encounter Additional Health Concerns Assessment Noted Time PHQ-9 Depression Total Score: 0 10/27/19 24 3:50 PM EST documented as of this encounter Care Teams Needleworker Relationship Specialty Start Date End Date Ramone Duque MD PCP - General Family Medicine 06/16/19 documented as of this encounter
--- OUTSIDE RECORDS SUMMARY | 2025-05-12 11:49 | XMS_ITS | Clinical Summary ---
Author Organization [facility] Healthcare Address [address] [place] [address] Care Team Providers Care Bods Developer Name Role Phone Ramone Duque MD Primary Care Provider [phone] Allergies No known active allergies Medications lisinopril 20 MG tablet Take 20 mg by mouth in the morning. Active escitalopram (Lexapro) 10 MG tablet Take 20 mg by mouth in the morning. 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, bilateral legs 09/18/2023 Pelvic congestion syndrome 09/18/2023 Encounters Date Type Department Care Team Description 05/10/2025 4:00 PM EDT Treatment [facility] [address] [place] [phone] Aide Wong PTA Right hip pain (Primary Dx); Femoroacetabular impingement of right hip; Articular cartilage disorder of right hip 05/10/2025 Bamboo flowsheet [facility] [address] [place] [address] Aide Wong PTA 05/10/2025 Travel 05/03/2025 5:00 PM EDT Evaluation [facility] [address] [place] [address] John Francis, PT Right hip pain (Primary Dx); Femoroacetabular impingement of right hip; Articular cartilage disorder of right hip 05/03/2025 Travel 04/26/2025 Travel from Last 3 Months Immunizations Immunization Administration Dates Next Due Influenza, injectable, MDCK, preservative free, quadrivalent 2023 Zoster, Recombinant 2023 Family History Medical History Relation Name Comments Cancer Father Modesto Canales Cancer Mother Caty Canales Diabetes Mother Caty Canales Stroke Mother Caty Canales Asthma Sister Pina Relation Name Status Comments Father Modesto Canales Mother Caty Canales Sister Pina Social History Tobacco Use Types Packs/Day Years Used Date Smoking Tobacco: Former Cigarettes 0.5 12.2 0 03/17/1989 - 05/18/2001 Smokeless Tobacco: Never Tobacco Cessation:Counseling Given: Not Answered Alcohol Use Standard Drinks/Week Comments Yes 3 (1 standard drink = 0.6 oz pur e alcohol) Comments Unknown Sex and Gender Information Value Date Recorded Sex Assigned at Not on file Legal Sex Female 7:20 PM EDT Gender Identity Not on file Sexual Orientation Not on file Last Filed Vital Signs Vital Sign Reading Time Taken Comments Blood Pressure 163/103 09/23/2023 9:11 AM EST Pulse - - Temperature - - Respiratory Rate - - Oxygen Saturation - - Inhaled Oxygen Concentration - - Weight 83.5 kg (184 lb) 09/23/2023 9:11 AM EST Height 170.2 cm (5' 7 ) 09/23/2023 9:11 AM EST Body Mass Index 28.82 09/23/2023 9:11 AM EST Plan of Treatment Upcoming Encounters Date Type Department Care Team (Late st Contact Info) Description 05/12/2025 4:30 PM EDT Treatment [facility] [address] [place] [phone] Day Vivar PTA [address] [place] [address] 05/17/2025 4:00 PM EDT Treatment [facility] [address] [place] [phone] Day Vivar, HEAD WAITRESS [address] [place] [address] 05/19/2025 4:30 PM EDT Treatment [facility] [address] [place] [phone] VivarDay, HEAD WAITRESS [address] [facility] [place] [address] 05/24/2025 4:00 PM EDT Treatment [facility] [address] [facility] [place] [phone] Judith Aide, HEAD WAITRESS 05/26/2025 4:30 PM EDT Treatment [facility] [address] [facility] [place] [phone] Day Vivar, HEAD WAITRESS [address] [place] [address] Health Maintenance Due Date Last Done Comments CT Colonography 1973 Colonoscopy 1973 Colorectal Cancer Screening 1973 FIT-DNA 1973 FIT 1973 FOBT 1973 Sigmoidoscopy 1973 Pap Smear 1994 Mammogram 09/19/2024 09/19/2023, 09/08, 07/15/2019, Additional history exists Influenza Vaccine (#1) 2025 , 06/29/2021, 06/02/2017, Additional history exists Cervical Cancer Screening 10/27/2028 HPV/Cotest 10/27/2028 10/27/2023, 06/16/2019 Insurance [employer] [facility] [address] [address] Care Teams Bods Developer Relationship Specialty Start Date End Date Ramone Duque MD PCP - General Family Medicine 09/12/23
--- OUTSIDE RECORDS SUMMARY | 2025-05-12 11:49 | XMS_ITS | Encounter Summary ---
Author Organization [facility] Address [address] [place] [address] Care Team Providers Care Film Sound Coordinator Name Role Phone Ramone Duque MD Primary Care Provider [phone] Encounter Details Date Type Department Care Team ([facility] Contact Info) Description 06/25/2024 Orders Only [facility] [address] [facility] [address] [place] [phone] Yessica Silva [address] [facility] [address] [place] [address] Chronic pansinusitis Social History Tobacco Use Types Packs/Day Years [...] Encounters Date Type Department Care Team (Late Contact Info) Description 05/12/2025 4:30 PM EDT Treatment [facility] [address] [place] [address] Day Vivar PTA [address] [place], [place] [phone] 05/17/2025 4:00 PM EDT Treatment [facility] [address] [place] [address] Day Vivar, BRAILLE TRANSLATOR [address] [place] [address] 05/19/2025 4:30 PM EDT Treatment [facility] [address] [facility] [address] Day Vivar, BRAILLE TRANSLATOR [address] [facility] [place] [address] 05/24/2025 4:00 PM EDT Treatment [facility] [address] [facility] [phone] Aide Wong, BRAILLE TRANSLATOR 05/26/2025 4:30 PM EDT Treatment [facility] [address] [facility] [phone] Day Vivar, BRAILLE TRANSLATOR [address] [place] [address] documented as of this encounter Visit Diagnoses Diagnosis Chronic pansinusitis Other chronic sinusitis documented in this encounter Care Teams Film Sound Coordinator Relationship Specialty Start Date End Date Ramone Duque MD PCP - General Family Medicine 09/12/23 documented as of this encounter
--- OUTSIDE RECORDS SUMMARY | 2025-05-12 11:49 | XMS_ITS | Encounter Summary ---
Author Organization [facility] Healthcare Address [address] [facility] [place] [address] Care Team Providers Care Hardwood Floor Sander Name Role Phone Ramone Duque MD Primary Care Provider [phone] Encounter Details Date Type Department Care Team (Late Contact Info) Description 05/10/2025 Bamboo flowsheet [facility] [address] [place] [address] Aide Wong, LORE Social History Tobacco Use Types Packs/Day Years [...] Info) Description 05/12/2025 4:30 PM EDT Treatment [facility] [address] [place] [phone] Day Vivar, OPERATOR [employer] [address] [place] [address] 05/17/2025 4:00 PM EDT Treatment [facility] [address] [place] [address] Day Vivar, OPERATOR [employer] [address] [place] [address] 05/19/2025 4:30 PM EDT Treatment [facility] [address] [facility] [place] [address] Cb Day, [facility] [address] [facility] [place] [address] 05/24/2025 4:00 PM EDT Treatment [facility] [address] [facility] [place] [address] Judith Aide, [facility] 05/26/2025 4:30 PM EDT Treatment [facility] [address] [facility] [place] [address] Day Vivar, [facility] [address] [facility] [place] [address] documented as of this encounter Visit Diagnoses Not on filedocumented in this encounter Care Teams Hardwood Floor Sander Relationship Specialty Start Date End Date Ramone Duque MD PCP - General Family Medicine 09/12/23 documented as of this encounter
--- OUTSIDE RECORDS SUMMARY | 2025-05-12 11:49 | XMS_ITS | Clinical Summary ---
Author Organization [facility] Address [address], [address] [place] [address] Care Team Providers Care Development Intern Name Role Phone Ramone Duque MD Primary Care Provider [phone] Allergies No known active allergies Medications Probiotic Product (PROBIOTIC DAILY PO) Take by mouth daily Active Multiple Vitamins-Minera ls (EMERGEN-C FIVE PO) Take by mouth Active acetaminophen (TYLENOL) 325 MG tablet Take 2 tablets by mouth every 6 hours as needed for Pain 40 tablet 07/05/2022 Active hyoscyamine (ANASPAZ;LEVSIN ) 125 MCG tablet Take 125 mcg by mouth 2 times daily as needed for Cramping Active escitalopram (LEXAPRO) 10 MG tablet Take 10 mg by mouth daily Active lisinopril (PRINIVIL;ZESTR IL) 20 MG tablet Take 20 mg by mouth daily Active phentermine (ADIPEX-P) 37.5 MG tablet Take 37.5 mg by mouth every morning (before breakfast). Active Encounters Date Type Department Care Team Description 02/21/2025 Clinical Documentation [facility] Physical Therapy [address] [place] [phone] Kizzy Orosco PTA from Last 3 Months Family History Medical History Relation Name Comments Crohn's Disease Daughter Cancer Father Cancer Mother Diabetes Mother High Blood Pressure Mother Celiac Disease Sister Relation Name Status Comments Daughter Alive Father Mother Sister Social History Tobacco Use Types Packs/Day Years Used Date Smoking Tobacco: Former Smokeless Tobacco: Never Alcohol Use Standard Drinks/Week Comments Yes 0 (1 standard drink = 0.6 oz pur e alcohol) occassionally Comments Unknown Sex and Gender Information Value Date Recorded Sex Assigned at Female 11/07/2024 8:16 AM EST Legal Sex Female 6:45 PM EST Gender Identity Female 11/07/2024 8:16 AM EST Sexual Orientation Not on file Last Filed Vital Signs Vital Sign Reading Time Taken Comments Blood Pressure 152/92 11/19/2022 4:10 PM EDT Pulse 79 11/19/2022 4:10 PM EDT Temperature 36.6 C (97.8 F) 11/19/2022 4:05 PM EDT Respiratory Rate 18 11/19/2022 4:05 PM EDT Oxygen Saturation 93% 07/05/2022 8:02 PM EDT Inhaled Oxygen Concentration - - Weight 87.9 kg (193 lb 12.8 oz) 11/19/2022 4:05 PM EDT Height 170.2 cm (5' 7 ) 11/19/2022 4:05 PM EDT Body Mass Index 30.35 11/19/2022 4:05 PM EDT Plan of Treatment Upcoming Encounters Date Type Department Care Team (Late st Contact Info) Description 05/25/2025 3:30 PM EDT Office Visit [facility] Part of [address] [place] [address] Cristy Khan APRN - [address] [place], [place] [id number] 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 [place] Health Maintenance Due Date Last Done Comments Depression Screen 1985 HIV screen 1988 Hepatitis C screen 1991 DTaP/Tdap/Td vaccine (1 - Tdap) 1992 Hepatitis B vaccine (1 of 3 - 19+ 3-dose series) 1992 Pap smear 1994 Cervical cancer screen 2003 HPV (without or with Pap) 2003 Lipids 2013 Colonoscopy 2018 Colorectal Cancer Screen 2018 FIT/FOBT: Average risk 2018 Fecal-DNA (Cologuard): Average risk 2018 Sigmoidoscopy/CT colonography 2018 Pneumococcal 50+ years Vaccine (1 of 1 - PCV) 2023 COVID-19 Vaccine ( season) 2024 2023, 07/03/2021, 11/23/2020, Additional history exists Flu vaccine (#1) 04/08/2025 2023 Breast cancer screen 09/19/2025 09/19/2023, 09/24/2021, 07/15/2019, Additional history exists Shingles vaccine Completed 11/03/2023, 2023 Hepatitis A vaccine Aged Out No longe r eligible based on patient's age to complete this topic Hib vaccine Aged Out No longer eligi ble based on patient's age to complete this topic Meningococcal (ACWY) vaccine Aged Out No longer eligible based on patient's age to complete this topic Meningococcal B vaccine Aged Out No l onger eligible based on patient's age to complete this topic Polio vaccine Aged Out No longer elig ible based on patient's age to complete this topic Procedures Procedure Name Priority Date/Time Associated Diagnosis Comments [facility] DIGITAL SCREEN W OR WO CAD BILATERAL Routine 10/13/2015 2:47 PM EST Screening from Last 3 Months or Most Recently Relevant to Health Maintenance Results * ABHIJIT Digital Screen Bilateral (10/13/2015 2:47 PM EST) Anatomical Region Laterality Modality Breast Bilateral Mammography 10/13/2015 2:48 PM EST Impressions 10/13/2015 5:00 PM EST IMPRESSION: No mammographic evidence of malignancy. (CATEGORY 2 - ACR BI-RADS: BENIGN FINDING) Final report electronically signed by Rosalia Hodges on 10/13/2015 5:00 PM Narrative 10/13/2015 5:00 PM EST REPORT: BILATERAL DIGITAL SCREENING MAMMOGRAM WITH ASSISTANCE OF CAD INDICATION: Screening FINDINGS: Compared to 01/18/2009. The breasts are heterogeneously dense. Few benign scattered calcifications in both breasts. No suspicious calcifications, mass lesions, architectural distortion or skin thickening. Procedure Note Rosalia Hodges MD - 10/13/2015 REPORT: BILATERAL DIGITAL SCREENING MAMMOGRAM WITH ASSISTANCE OF CAD INDICATION: Screening FINDINGS: Compared to 01/18/2009. The breasts are heterogeneously dense.Few benign scattered calcifications in both breasts. No suspiciouscalcifications, mass lesions, architectural distortion or skinthickening. IMPRESSION: No mammographic evidence of malignancy. (CATEGORY 2 - ACRBI-RADS: BENIGN FINDING) Final report electronically signed by Rosalia Hodges on 10/13/2015 5:00 PM Glory ZIEGLER IMG MAMMOGRAPHY ORDERABLES Fi nal Result from Last 3 Months or Most Recently Relevant to Health Maintenance Insurance [place] [id number] [employer] Member Subscriber Plan / Payer (Ef fective 2022-Present) Name:Glory Pritchard Relation to Subscriber:Self Name:Glory Pritchard Payer ID:Not on file Group ID:[id number] Type:Not on file Address: [address] [place] [id number] [place] [address] [id number] [phone] Care Teams Development Intern Relationship Specialty Start Date End Date Ramone Duque MD [address] [place] [address] PCP - General 09/27/15
--- OUTSIDE RECORDS SUMMARY | 2025-05-12 11:49 | XMS_ITS | Patient Health Record ---
Author Organization The [facility] in [place] Address [address] [place] [address] Care Team Providers Care Body Joiner Name Role Phone Spencer Yun Primary Care Provider Allergies No Known Allergies Results Component Value Reference Range Notes XR hip LT 2V w/ pelvis Reviewed date:06/10/2024 05:48:15 PM Interpretation: Performing Lab: Notes/Report: Source Facility: [place] [address] XRay Report Signed Patient: Glory Zhao MR#: [id number] : 1975 Acct:[id number] Age/Sex: 48 / F ADM Date: 06/09/24 Loc: RAD Attending Dr: Chiara Yun M.D. Ordering Physician: Chiara Yun M.D. Date of Service: 06/09/24 Procedure(s): XR hip LT 2V w/ pelvis Accession Number(s): [id number] cc: Chiara Yun M.D. [place] [address] Patient Name: GLORY ZHAO MRN: [id number] date: 1975 Sex: F Assigned Patient Location: RAD Current Patient Location: Accession/Order Number: [id number] Exam Date: 06/09/2024 17:40 Report Date: 06/10/2024 08:24 At the request of: CHIARA YUN Procedure: XR hip LT 2V w/ pelvis PROCEDURE: XR hip LT 2V w/ pelvis COMPARISON: None. HISTORY: M25.559, HIP PAIN FINDINGS: BONES:No acute fracture or dislocation. Mild bilateral hip osteoarthritis with marginal osteophyte formation SOFT TISSUES:Negative. No visible soft tissue swelling. EFFUSION:None visible. OTHER: Vascular coils left medial abdomen XR/XR hip LT 2V w/ pelvis IMPRESSION: Mild bilateral hip osteoarthritis Electronically authenticated by: LADONNA AWTERMAN Date: 06/10/2024 08:24 Dictated By: Ladonna Waterman M.D. Signed By: 06/10/24826 DD/ 3 TD/TT: Vehicle Dismantler: [place] [address] XRay Report Signed Patient: Sola Zhao MR#: [id number] : 1975 Acct:[id number] Age/Sex: 48 / F ADM Date: 06/09/24 Loc: RAD Attending Dr: Ailyn Yun M.D. Ordering Physician: Chiara Yun M.D. Date of Service: 06/09/24 Procedure(s): XR hip LT 2V w/ pelvis Accession Number(s): [id number] cc: Chiara Yun M.D. [place] [id number] Patient Name: GLORY ZHAO MRN: [id number] date: 1975 Sex: F Assigned Patient Location: [facility] Current Patient Location: Accession/Order Number: [id number] Exam Date: 17:40 Report Date: 06/10/2024 08:24 At the request of: CHIARA YUN Procedure: XR hip LT 2V w/ pelvis PROCEDURE: XR hip LT 2V w/ pelvis COMPARISON: None. HISTORY: M25.559, HI P PAIN FINDINGS: BONES:No acute fracture or dislocation. Mild bilateral hip osteoarthritis with marginal osteophyte formation SOFT TISSUES:Negativ e. No visible soft tissue swelling. EFFUSION:None visible. OTHER: Vascular coil s left medial abdomen XR/XR hip LT 2V w/ pelvis IMPRESSION: Mild bilateral hip osteoarthritis Electronically authenticated by: LADONNA WATERMAN Date: 06/10/2024 08:24 Dictated By: Ladonna Waterman M.D. Signed By: 06/10/24826 DD/ 3 TD/TT: Vehicle Dismantler: RADHA T3 Reviewed date:09/14/2024 12:33:07 PM Interpretation: Performing Lab: Notes/Report: [facility] , Free T3 2.21 2.18-3.98 pg/mL Performing Lab: see note ML - [facility] LB IRON Reviewed date:09/14/2024 12:33:07 PM Interpretation: Performing Lab: Notes/Report: [facility] , Iron 129.0 50.0-170.0 ug/dL Performing Lab: see note ML - [facility] LB LIPID PROFILE Reviewed date:09/14/2024 12:33:07 PM Interpretation: Performing Lab: Notes/Report: [facility] , Triglycerides 152 <=150 mg/dL Cholesterol 259 <=200 mg/dL HDL Cholesterol 51 40-60 mg/dL > or =60 mg/dl - LOW CARDIOVASCULAR RISK <40 mg/dl - HIGH CARDIOVASCULAR RISK LDL Cholesterol Calculated 178.0 130-159 mg/dl BORDERLINE HIGH >190 mg/dl VERY HIGH <100 mg/dl OPTIMAL 160-189 mg/dl HIGH 100-129 mg/dl NEAR OR ABOVE OPTIMAL VLDL CHOLESTEROL 30.4 Chol HDL Ratio 5.1 >11.0 HIGH RISK 4.4 - 7.1 AVERAGE RISK 7.1 - 11.0 MODERATE RISK 3.3 - 4.4 LOW RISK Performing Lab: see note ML - [facility] LB PROF 14(COMP METB) Reviewed date:09/14/2024 12:33:07 PM Interpretation: Performing Lab: Notes/Report: [facility] , Sodium 138 136-145 mmol/L Potassium 4.2 3.5-5.1 mmol/L Chloride 100 98-107 mmol/L Carbon Dioxide 29.3 21.0-32.0 mmol/L Anion Gap 12.9 Glucose 105 74-106 mg/dL Blood Urea Nitrogen 13.0 7.0-18.0 mg/dL Creatinine 0.65 0.55-1.02 mg/dL Estimated GFR ( Lucina >60 >=60 mL/min/1.73m 2 Estimated GFR (Non- Cindi >60 >=60 mL/min/1.73m 2 BUN Creatinine Ratio 20.0 Calcium 8.9 8.5-10.1 mg/dL Bilirubin Total 0.5 0.2-1.0 mg/dL Aspartate Amino Transferase 20 15-37 U/L Alanine Aminotransferase 48 14-59 U/L Alkaline Phosphatase 57 46-116 U/L Total Protein 6.8 6.4-8.2 g/dL Albumin Level 3.9 3.4-5.0 g/dL Globulin 2.9 Albumin Globulin Ratio 1.3 Performing Lab: see note ML - [facility] LB T4 Reviewed date:09/14/2024 12:33:07 PM Interpretation: Performing Lab: Notes/Report: [facility] , T4 Thyroxine 7.60 4.80-13.90 ug/dL Performing Lab: see note - [facility] LB TSH Reviewed date:09/14/2024 12:33:07 PM Interpretation: Performing Lab: Notes/Report: [facility] , Thyroid Stimulating Hormone 2.356 0.358-3.740 uIU/mL Performing Lab: see note - [facility] INSULIN Reviewed date:09/15/2024 01:03:08 PM Interpretation: Performing Lab: Notes/Report: [facility] , Insulin 14.9 2.6-24.9 uIU/mL Performed at: [facility] Senior Software Analyst: Tej Rodríguez PhD, Phone: [phone] [address], [place] [phone] Performing Lab: see note - [facility] LB GLYCOHEMOGLOBIN A1C Reviewed date:09/14/2024 12:33:07 PM Interpretation: Performing Lab: Notes/Report: [facility] , Glycohemoglobin A1C 5.5 4.5-6.2 % > 7.0 ACTION SUGGESTED ADA RECOMMENDED LIMIT 4.0 - 6.0 ADA THERAPEUTIC TARGET < 7.0 Estimated Average Glucose 111 Performing Lab: see note - [facility] LB CBC AUTO DIFF Reviewed date:09/14/2024 12:33:07 PM Interpretation: Performing Lab: Notes/Report: [facility] , White Blood Count 4.6 4.0-11.0 10 3/uL Red Blood Count 4.44 4.20-5.40 10 6/uL Hemoglobin 13.8 12.0-16.0 g/dL Hematocrit 41.1 36.0-48.0 % Mean Corpuscular Volume 92.6 81.0-99.0 fL Mean Corpuscular Hemoglobin 31.1 26.7-34.0 pg Mean Corpuscular HGB Conc 33.6 29.9-35.2 g/dL Red Cell Distribution Width 13.2 11.0-15.0 % Platelet Count 200 150-450 10 3/uL Mean Platelet Volume 10.4 9.5-13.5 fL Neutrophils Percent Auto 52.2 43.0-75.0 % Lymphocytes Percent Auto 35.6 20.5-60.0 % Monocytes Percent Auto 8.5 1.7-12.0 % Eosinophils Percent Auto 3.1 0.9-7.0 % Basophils Percent Auto 0.4 0.2-2.0 % Immature Granulocytes Pct Auto 0.2 0.0-0.5 % Neutrophils Absolute Auto 2.4 1.4-6.5 10 3/uL Lymphocytes Absolute Auto 1.6 1.2-3.8 10 3/uL Monocytes Absolute Auto 0.4 0.3-0.8 10 3/uL Eosinophils Absolute Auto 0.1 0.0-0.7 10 3/uL Basophils Absolute Auto 0.0 0.0-0.1 10 3/uL Immature Granulocytes Abs Auto 0.01 0.00-0.03 10 3/uL Performing Lab: see note ML - [facility] LB TSH Reviewed date:02/20/2025 12:02:00 PM Interpretation: Performing Lab: Notes/Report: [facility] , Thyroid Stimulating Hormone 0.475 0.358-3.740 uIU/mL Performing Lab: see note ML - [facility] LB T4 Reviewed date:02/20/2025 12:02:00 PM Interpretation: Performing Lab: Notes/Report: [facility] , T4 Thyroxine 5.60 4.80-13.90 ug/dL Performing Lab: see note - [facility] FREE T3 Reviewed date:02/20/2025 12:02:00 PM Interpretation: Performing Lab: Notes/Report: [facility] , Free T3 2.41 2.18-3.98 pg/mL Performing Lab: see note - [facility] LB TSH Reviewed date:01/27/2025 12:35:54 PM Interpretation: Performing Lab: Notes/Report: [facility] , Thyroid Stimulating Hormone 1.432 0.358-3.740 uIU/mL Performing Lab: see note ML - [facility] LB T4 Reviewed date:01/27/2025 12:35:54 PM Interpretation: Performing Lab: Notes/Report: [facility] , T4 Thyroxine 4.80 4.80-13.90 ug/dL Performing Lab: see note ML - [facility] LB FREE T3 Reviewed date:01/27/2025 12:35:54 PM Interpretation: Performing Lab: Notes/Report: [facility] , Free T3 3.15 2.18-3.98 pg/mL Performing Lab: see note ML - [facility] LB TSH Reviewed date:12/25/2024 11:32:07 AM Interpretation: Performing Lab: Notes/Report: [facility] , Thyroid Stimulating Hormone 3.172 0.358-3.740 uIU/mL Performing Lab: see note ML - [facility] LB T4 Reviewed date:12/25/2024 11:32:07 AM Interpretation: Performing Lab: Notes/Report: [facility] , T4 Thyroxine 4.60 4.80-13.90 ug/dL Performing Lab: see note - [facility] LB PROF 14(COMP METB) Reviewed date:12/25/2024 11:32:07 AM Interpretation: Performing Lab: Notes/Report: [facility] , Sodium 137 136-145 mmol/L Potassium 4.4 3.5-5.1 mmol/L Chloride 103 98-107 mmol/L Carbon Dioxide 28.9 21.0-32.0 mmol/L Anion Gap 9.5 Glucose 110 74-106 mg/dL Blood Urea Nitrogen 15.0 7.0-18.0 mg/dL Creatinine 0.63 0.55-1.02 mg/dL Estimated GFR ( Lucina >60 >=60 mL/min/1.73m 2 Estimated GFR (Non- Cindi >60 >=60 mL/min/1.73m 2 BUN Creatinine Ratio 23.8 Calcium 8.8 8.5-10.1 mg/dL Bilirubin Total 0.4 0.2-1.0 mg/dL Aspartate Amino Transferase 23 15-37 U/L Alanine Aminotransferase 42 14-59 U/L Alkaline Phosphatase 59 46-116 U/L Total Protein 6.7 6.4-8.2 g/dL Albumin Level 3.9 3.4-5.0 g/dL Globulin 2.8 Albumin Globulin Ratio 1.4 Performing Lab: see note ML - [facility] LIPID PROFILE Reviewed date:12/25/2024 11:32:07 AM Interpretation: Performing Lab: Notes/Report: [facility] , Triglycerides 88 <=150 mg/dL Cholesterol 151 <=200 mg/dL HDL Cholesterol 61 40-60 mg/dL <40 mg/dl - HIGH CARDIOVASCULAR RISK > or =60 mg/dl - LOW CARDIOVASCULAR RISK LDL Cholesterol Calculated 73.0 160-189 mg/dl HIGH 100-129 mg/dl NEAR OR ABOVE OPTIMAL 130-159 mg/dl BORDERLINE HIGH <100 mg/dl OPTIMAL >190 mg/dl VERY HIGH VLDL CHOLESTEROL 17.6 Chol HDL Ratio 2.5 >11.0 HIGH RISK 4.4 - 7.1 AVERAGE RISK 7.1 - 11.0 MODERATE RISK 3.3 - 4.4 LOW RISK Performing Lab: see note ML - [facility] GLYCOHEMOGLOBIN A1C Reviewed date:12/25/2024 11:32:07 AM Interpretation: Performing Lab: Notes/Report: [facility] , Glycohemoglobin A1C 5.4 4.5-6.2 % ADA RECOMMENDED LIMIT 4.0 - 6.0 ADA THERAPEUTIC TARGET < 7.0 > 7.0 ACTION SUGGESTED Estimated Average Glucose 108 Performing Lab: see note ML - [facility] FREE T3 Reviewed date:12/25/2024 11:32:07 AM Interpretation: Performing Lab: Notes/Report: [facility] , Free T3 1.90 2.18-3.98 pg/mL Performing Lab: see note ML - [facility] CBC AUTO DIFF Reviewed date:12/25/2024 11:32:07 AM Interpretation: Performing Lab: Notes/Report: [facility] , White Blood Count 4.7 4.0-11.0 10 3/uL Red Blood Count 4.37 4.20-5.40 10 6/uL Hemoglobin 13.7 12.0-16.0 g/dL Hematocrit 40.9 36.0-48.0 % Mean Corpuscular Volume 93.6 81.0-99.0 fL Mean Corpuscular Hemoglobin 31.4 26.7-34.0 pg Mean Corpuscular HGB Conc 33.5 29.9-35.2 g/dL Red Cell Distribution Width 12.9 11.0-15.0 % Platelet Count 207 150-450 10 3/uL Mean Platelet Volume 10.4 9.5-13.5 fL Neutrophils Percent Auto 62.7 43.0-75.0 % Lymphocytes Percent Auto 26.4 20.5-60.0 % Monocytes Percent Auto 7.6 1.7-12.0 % Eosinophils Percent Auto 2.3 0.9-7.0 % Basophils Percent Auto 0.8 0.2-2.0 % Immature Granulocytes Pct Auto 0.2 0.0-0.5 % Neutrophils Absolute Auto 3.0 1.4-6.5 10 3/uL Lymphocytes Absolute Auto 1.3 1.2-3.8 10 3/uL Monocytes Absolute Auto 0.4 0.3-0.8 10 3/uL Eosinophils Absolute Auto 0.1 0.0-0.7 10 3/uL Basophils Absolute Auto 0.0 0.0-0.1 10 3/uL Immature Granulocytes Abs Auto 0.01 0.00-0.03 10 3/uL Performing Lab: see note ML - [facility] LB Reason For Referral Diagnosis 1 Left hip pain (M25.5 52) Referral Organization [facility] Referring Provider First Name Spencer Referring Provider Last Name [facility] Referring Provider [facility] Referred Provider Specialty Physical Med icine and Rehabilitation Referral Priority Routine Reason torn labrum Diagnosis 1 Hip pain, acute, rig ht (M25.551) Referral Organization [facility] Referring Provider First Name Spencre Referring Provider Last Name [facility] Referring Provider [facility] Referred Provider Levy Harrison Referred Provider Specialty Orthopedic S urgery Referral Priority Routine Medications Medication SIG (Take, Route, Frequency, Duration) Notes Start Date End Date Status Meloxicam 15 MG 1 tablet Orally Once a day for 30 days 10/01/2024 Active Simvastatin 20 MG 1 tablet in the even ing Orally Once a day for 90 days 09/14/2024 Active Cetirizine HCl 10 MG 1 tablet Orally [...] Once a day for 30 days Active Lisinopril 20 MG TAKE 1 TABLET [...] ast year? No Points 0 Interpretation Negative Problems Problem Type SNOMED Code ICD Code Onset Dates Problem Status W/U Status Risk Notes Problem Intermittent 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 (13832145909592560) Atherosclerosis of [place] arteries of extremities with intermittent claudication, bilateral legs (I70.213) Active confirmed Problem 896111860 Chronic sinusiti s, unspecified (J32.9) Active confirmed Problem Hyperlipidemia (78937497) Hyperlipidemia (E78.5) Active confirmed Problem Hypertension (91638088) Hypertension (I10) Active confirmed Problem Hypothyroidism (38713881) Hypothyroidism (E03.9) Active confirmed Problem Insomnia (868767537) Insomnia (G47.00) Active c onfirmed Problem Eczema (52028227) Eczema (L30.9) Active confirm ed Problem Ankle pain (066385407) Ankle reynaldo n (M25.579) Active confirmed Problem Back pain (231994602) Back pain (M54.9) Active confirmed Problem Acute sinusitis (14006404) Acute sinusitis (J01.90) Active confirmed Problem Well adult (675653185) Well adult (Z00.00) Activ e confirmed Problem Seasonal allergic rhinitis (518370547) Seasonal allergic rhinitis (J30.2) Active confirmed Problem Nystagmus (168040) Nystagmus (H55.00) Active co nfirmed Problem Contact dermatitis (77699839) Contact dermatitis (L25.9) Active confirmed Problem Osteoarthritis of hi p (232523822) Osteoarthritis of hip (M16.9) Active confirmed Problem Gallstone (634147920) Gall stone s (K80.20) Active confirmed Problem Femoral acetabular impingement of right hip joint (disorder) (8514599637215046) Femoroacetabular impingement of right hip (M25.851) Active confirmed Problem Femoral acetabular impingement (282926947) Femoroacetabular impingement of left hip (M25.852) Active confirmed Problem Pelvic congestion syndrome (27169839) Pelvic congestion syndrome (N94.89) Active confirmed Problem Irritable bowel syndrome (04010107) Irritable bowel syndrome (IBS) (K58.9) Active confirmed Problem hypercholesterolemia (disorder) (91450214) Hypercholesteremia (E78.00) Active confirmed Problem Elevated blood-pressure reading without diagnosis of hypertension (031924451) Elevated blood pressure reading (R03.0) Active confirmed Problem Localized, primary osteoarthritis of the pelvic region and thigh (945352941) Degenerative tear of acetabular labrum of right hip (M16.11) Active confirmed Problem Arthralgia of the pelvic region and thigh (292738035) Hip pain, acute, right (M25.551) Active confirmed Problem COVID-19 (289926086) COVID-19 (U07.1) Active co nfirmed Vital Signs Blood pressure diastolic 84 mm Hg 04/13/2025 Height 67 in 04/13/2025 Blood pressure systolic 144 mm Hg 04/13/2025 Weight 196 lbs 04/13/2025 BMI 30.69 kg/m2 04/13/2025 Encounters Encounter Location Date Provider Diagnosis [facility] [address] [place] [address] 01/27/2025 Spencer Yun Hypothyroidism E03.9 [facility] [address] [place] [address] 02/20/2025 Spencer Yun [facility] [address] [place] [address] 02/22/2025 Spencer Yun [facility] [address] [place] [address] 03/22/2025 Spencer Hoy Ovarian cyst N83.209 [facility] [address] [place] [place] [address] 10/01/2024 Spencer Hoy Left hip pain M25.55 2 [facility] [address] [place] [address] 10/25/2024 Spencer Hoy Hypertension I10 [facility] [address] [place] [address] 11/29/2024 Spencer Hoy Hypertension I10 [facility] [address] [place] [address] 12/24/2024 Spencer Hoy [facility] [address] [place] [address] 12/25/2024 Spencer Hoy Hypothyroidism E03.9 [facility] [address] [place] [address] 01/21/2025 Spencer Hoy Hip pain, acute, rig ht M25.551 [facility] [address] [place] [place] [address] 06/10/2024 Spencer Hoy [facility] [address] [place] [address] 07/07/2024 Spencer Hoy [facility] [address] [place] [place] [address] 07/21/2024 Spencer Hoy [facility] [address] [place] [address] 09/14/2024 Spencer Hoy Hyperlipidemia E78.5 [facility] [address] [place] [address] 04/13/2025 Spencer Hoy Hip pain, acute, rig ht M25.551 [facility] [address] [place] [address] 06/09/2024 Spencer Hoy Hip pain M25.559 [facility] [address] [place] [place] [address] 2024 Spencer Hoy Elevated blood press ure reading R03.0 [facility] [address] [place] [address] 08/23/2024 Spencer Hoy Well adult Z00.00 [place] [address] [place] [address] 09/24/2024 Spencer Yun Hypertension I10 [address] [address] 12/09/2024 Spencer Hoy Well adult Z00.00 an d Hip pain, acute, right M25.[address] [address] 10/25/2024 Spencer Yun Obesity E66.[address] [address] 11/29/2024 Spencer Yun BMI 29.0-29.9,adult Z68.[address] [address] 12/27/2024 Spencer Yun Assessments Encounter Date Diagnosis (ICD Code) Assessment Notes Treatment Notes Treatment Clinical Notes Section Notes 06/09/2024 Hip pain (ICD-10 - M25.559) 2024 Elevated blood pressure reading (ICD-10 - R03.0) 08/23/2024 Well adult (ICD-10 - Z00.00) 09/24/2024 Hypertension (ICD-10 - I10) 10/25/2024 Obesity (ICD-10 - E66.9) 11/29/2024 BMI 29.0-29.9,adult (ICD-10 - Z68.29) 12/09/2024 Well adult (ICD-10 - Z00.00) 12/09/2024 Hip pain, acute, right (ICD-10 - M25.551) 04/13/2025 Hip pain, acute, right (ICD-10 - M25.551) No CAD hx - no chest pain - no Hx strokes - cleared for OR 09/14/2024 Hyperlipidemia (ICD-10 - E78.5) 10/01/2024 Left hip pain (ICD-10 - M25.552) 10/25/2024 Hypertension (ICD-10 - I10) 11/29/2024 Hypertension (ICD-10 - I10) 12/25/2024 Hypothyroidism (ICD-10 - E03.9) 01/21/2025 Hip pain, acute, right (ICD-10 - M25.551) 01/27/2025 Hypothyroidism (ICD-10 - E03.9) 03/22/2025 Ovarian cyst (ICD-10 - N83.209) Plan Of Treatment Pending Test Test Name Order Date CMP (COMPLETE METABOLIC PANEL) 3 CMP (COMPLETE METABOLIC PANEL) 4 HEMOGLOBIN A1C (GLYCO) 12/09/2024 HEMOGLOBIN A1C (GLYCO) 05/19/2023 HEMOGLOBIN A1C (GLYCO) 08/23/2024 IRON, TOTAL 08/23/2024 LIPID PANEL (CHOL/TRIG/HDL/LDL) 08/23/20 24 LIPID PANEL (CHOL/TRIG/HDL/LDL) 05/19/20 23 LIPID PANEL (CHOL/TRIG/HDL/LDL) 12/10/19 25 CBC WITH DIFF 05/19/2023 CBC WITH DIFF 08/23/2024 Insulin Level 05/19/2023 Insulin Level 08/23/2024 LIVER PROFILE 09/14/2024 CT SINUSES WO CON 09/10/2023 US PELVIS 03/22/2025 XR HIP LT 2 3V W PELVIS 06/09/2024 THYROID PANEL (T4/TSH/FREE T3) 3 THYROID PANEL (T4/TSH/FREE T3) 4 THYROID PANEL (T4/TSH/FREE T3) 5 THYROID PANEL (T4/TSH/FREE T3) 5 THYROID PANEL (T4/TSH/FREE T3) 5 Lipid Panel 09/14/2024 MRI HIP RIGHT WO CONTRAST 12/09/2024 CMP (COMP MET PINA) w/eGFR CKD-EPI 2024 CBC WITH DIFF 12/09/2024 Insurance Providers Payer Name Payer Address Payer Phone Subscriber Number Group Number Insured Name Patient Relationship to Insured Coverage Start Date Coverage End Date MMO [employer] [address] [place] [address] [id number] Glory Zhao Self - patient is the insured Medical (General) History Medical History History ICD Code Acute sinusitis J01.90 Elevated blood pressure reading R03.0 Back pain M54.9 Contact dermatitis L25.9 COVID-19 U07.1 Well adult Z00.00 Irritable bowel syndrome (IBS) K58.9 Atherosclerosis of [place] ar teries of extremities with intermittent claudication, bilateral legs I70.213 Pelvic congestion syndrome N94.89 Ankle pain M25.579 Insomnia G47.00 Gall stones K80.20 Seasonal allergic rhinitis J30.2 Nystagmus H55.00 Eczema L30.9 Surgical History Surgery Date(Month/Year) basal cell carcinoma excision Cholecystectomy 2013
--- OUTSIDE RECORDS SUMMARY | 2025-05-12 11:49 | XMS_ITS | Encounter Summary ---
Author Organization [facility] Healthcare Address [address] [place] [address] Care Team Providers Care Radio Broadcaster Name Role Phone Ramone Duque MD Primary Care Provider [phone] Encounter Details Date Type Department Care Team (Latest Contact Info) Description 05/03/2025 Travel Social History Tobacco Use Types Packs/Day [...] Info) Description 05/12/2025 4:30 PM EDT Treatment [facility] [address] [place] [address] Day Vivar, REHAB THERAPY MANAGER [address] [place] [address] 05/17/2025 4:00 PM EDT Treatment [facility] [address] [place] [address] Day Vivar, REHAB THERAPY MANAGER [address] [place] [address] 05/19/2025 4:30 PM EDT Treatment [facility] [address] [place] [address] Day Vivar, REHAB THERAPY MANAGER [address] [place] [address] 05/24/2025 4:00 PM EDT Treatment [facility] [address] [place] [address] Aide Wong, [facility] 05/26/2025 4:30 PM EDT Treatment [facility] [address] [place] [id number] Day Vivar, [facility] [address] [place] [address] documented as of this encounter Visit Diagnoses Not on filedocumented in this encounter Care Teams Radio Broadcaster Relationship Specialty Start Date End Date Ramone Duque MD PCP - General Family Medicine 09/12/23 documented as of this encounter
--- OUTSIDE RECORDS SUMMARY | 2025-05-12 11:50 | XMS_ITS | Encounter Summary ---
Author Organization [facility] [employer] Address [id number] [address] [place] [address] Care Team Providers Care Healthcare Insurance Sales Agent Name Role Phone Ramone Duque MD Primary Care Provider [phone] Reason for Referral * Diagnostic Imaging (Routine) - Closed Specialty Diagnoses / Procedures Referred By Contlashawn blackman Referred To Contact Radiology Diagnoses Femoroacetabular impingement of both hips Degenerative tear of acetabular labrum of right hip Procedures CT hip right without contrast Levy Harrison MD [address] [place] [address] Phone: tel: fax: Referral ID Status Reason Start Date Expiration Date Visits Re quested Visits Authorized [id number] Closed 03/18/2025 03/18/2026 1 1 Encounter Details Date Type Department Care Team (Late st Contact Info) Description 03/18/2025 Orders Only [facility] [address] [place] [address] Lani Robb RN Femoroacetabular impingement of both hips (Primary Dx); Degenerative tear of acetabular labrum of right hip Social History Tobacco Use Types Packs/Day Years Used Date Smoking Tobacco: Former Cigarettes Q uit: 2001 Smokeless Tobacco: Never Alcohol Use Standard Drinks/Week [...] got money to buy more. Never True 03/18/2025 Within the past 12 months th e food we bought just didn't last and we didn't have money to get more. Never True 03/18/2025 Purpose - Life Answer Date Recorded Purpose [...] [facility] [address] [place] [address] Levy Harrison MD [address] [place] [address] 07/07/2025 2:00 PM EDT Office Visit [facility] [address] [facility] [address] [place] [address] Seth Evans MD [address], [facility] [address] [place] [address] 2025 12:30 PM EST Office Visit [facility] [address] [place] [address] Levy Harrison MD [address] [place] [address] 09/12/2025 10:40 AM EST Office Visit [facility] [address] [place] [address] Levy Harrison MD [address] [place] [address] documented as of this encounter Procedures Procedure Name Priority Date/Time Associated Diagnosis Comments FL AMB FLUORO GUIDED HIP RIGHT INJ Routine 03/18/2025 2:55 PM EDT MR HIP RT WO CONT Routine 03/18/2025 2:54 PM EDT documented in this encounter Results * CT hip right without contrast (03/30/2025 [...] Ref Prov IMG MRI ORDERABLES Final Result documented in this encounter Visit Diagnoses Diagnosis Femoroacetabular impingement of both hips- Primary Degenerative tear of acetabular labrum of right hip Femoroacetabular impingement of both hips Degenerative tear of acetabular labrum of right hip documented in this encounter Additional Health Concerns Assessment Noted Time PHQ-9 Depression Total Score: 0 10/27/19 24 3:50 PM EST documented as of this encounter Care Teams Healthcare Insurance Sales Agent Relationship Specialty Start Date End Date Ramone Duque MD PCP - General Family Medicine 06/16/19 documented as of this encounter
--- OUTSIDE RECORDS SUMMARY | 2025-05-12 11:50 | XMS_ITS | Encounter Summary ---
Author Organization [facility] [employer] Address [id number] [address] [place] [address] Care Team Providers Care Telephone Operators Supervisor Name Role Phone Ramone Duque MD Primary Care Provider [phone] Encounter Details Date Type Department Care Team (Latest Contact Info) Description 05/02/2025 Travel Social History Tobacco Use Types Packs/Day [...] Description 05/30/2025 1:45 PM EDT Office Visit [facility] [address] [address] Levy Harrison MD [address] [facility] [place] [address] 07/07/2025 2:00 PM EDT Office Visit [facility] [address] [facility] [address] [place] [address] Seth Evans MD [address], [facility] [address] [place] [address] 2025 12:30 PM EST Office Visit [facility] [address] [facility] [address] Levy Harrison MD [address] [facility] [place] [address] 09/12/2025 10:40 AM EST Office Visit [facility] [address] [facility] [address] Levy Harrison MD [address] [facility] [place] [address] documented as of this encounter Visit Diagnoses Not on filedocumented in this encounter Additional Health Concerns Assessment Noted Time PHQ-9 Depression Total Score: 0 10/27/19 24 3:50 PM EST documented as of this encounter Care Teams Telephone Operators Supervisor Relationship Specialty Start Date End Date Ramone Duque MD PCP - General Family Medicine 06/16/19 documented as of this encounter
--- NOTE | 2025-05-12 12:00 | PC.NURSE ---
area cleansed with sterile saline on gauze, skin adherent in place with 1 steri strip to site
[2025-05-12] MEDS: DIPHTH,PERTUSS(ACELL),TET VAC 0.5 ML SYRINGE IM (12:01)
--- NOTE | 2025-05-12 12:04 | ED_ITS ---
HPI HPI - General Adult General Chief complaint: Skin/Abscess/Foreign Body Stated complaint: FALL LACERATION HEAD INJURY [facility] Time Seen by Provider: 05/12/25 11:45 Source: patient Mode of arrival: walk-in History of Present Illness HPI narrative: Patient is a 49-year-old female presenting to the emergency department for evaluation of a head injury. Patient states she tripped on a rug and fell from a standing height just prior to arrival. She states she bumped the left side of her head. She states he has a mild headache, but no loss of consciousness. She has no nausea or vomiting. No other neurologic complaint such as changes in her vision, weakness, or paresthesias. She is not on anticoagulation or dual antiplatelet therapy. She really is only complaining of a small cut on the left side of her face. Unsure of her last tetanus shot. No neck or back pain. No chest pain or shortness of breath. Related Data Allergies Allergy/AdvReac Type Severity Reaction Status Date / Time No Known Drug Allergies Allergy Verified 05/12/25 11:50 Review of Systems ROS Status of ROS 10 or more systems reviewed and unremark able except as noted in history and below Exam Narrative Exam Narrative: CONSTITUTIONAL: Well-appearing, answering questions and following commands appropriately SKIN: There is a 0.5 cm linear laceration just lateral to the left eyebrow. There is mild oozing blood. The wound is well-approximated. EYES: EOMI. PERRLA. No ptosis. No periorbital ecchymosis. EARS, NOSE, THROAT: Moist oral mucosa. RESPIRATORY: Nonlabored respirations. CARDIOVASCULAR: Normal rate and regular rhythm. GASTROINTESTINAL: Abdomen is nondistended. MUSCULOSKELETAL: Head is atraumatic normocephalic. No C/T-spine tenderness. NEUROLOGIC: Patient is awake and alert. GCS 15. Facies were symmetrical. Constitutional Vital Signs, click to edit/add: Last Vital Signs Temp 98.3 F 05/12/25 11:46 Pulse 61 05/12/25 11:46 Resp 18 05/12/25 11:46 BP 190/91 H 05/12/25 11:46 Pulse Ox 96 05/12/25 11:46 O2 Del Method Room Air 05/12/25 11:46 Course Vital Signs Vital signs: Vital Signs Temperature 98.3 F 05/12/25 11:46 Pulse Rate 61 05/12/25 11:46 Respiratory Rate 18 05/12/25 11:46 Blood Pressure 190/91 H 05/12/25 11:46 Pulse Oximetry 96 05/12/25 11:46 Oxygen Delivery Method Room Air 05/12/25 11:46 Temperature 98.3 F 05/12/25 11:46 Pulse Rate 61 05/12/25 11:46 Respiratory Rate 18 05/12/25 11:46 Blood Pressure 190/91 H 05/12/25 11:46 Pulse Oximetry 96 05/12/25 11:46 Oxygen Delivery Method Room Air 05/12/25 11:46 Medical Decision Making MDM Narrative Medical decision making narrative: Patient is a 49-year-old female presenting to the emergency department for evaluation of left-sided facial laceration after mechanical fall from standing height prior to arrival. Vital signs are significant for hypertension, otherwise within normal limits. She is afebrile and hemodynamically stable. Her injuries as described above, however notable for 0.5 cm linear laceration just lateral to the left eyebrow. Differential diagnose includes facial laceration, mild closed head injury. Using the Bent head CT criteria, she is at low risk for severe intracranial traumatic injuries. I do not believe imaging is necessary at this time. The wound was closed with Dermabond and Steri-Strip after irrigation with sterile saline. Her tetanus shot was updated. I do believe the patient is stable for discharge at this time. They were instructed to follow up with her PCP as needed. Return precautions were given including any new or worsening symptoms. Patient understands and agrees to the plan. FINAL IMPRESSION: #Acute left-sided facial laceration #Acute mild closed head injury DISPOSITION: Discharged home CONDITION: Good Discharge Plan Discharge Chief Complaint: Skin/Abscess/Foreign Body Clinical Impression: Facial laceration, Closed head injury Patient Disposition: Home, Self-Care Time of Disposition Decision: 12:06 Condition: Good Mode of Transportation: Private Vehicle Print Language: German Instructions: Laceration (ED), Head Injury (ED), Skin Adhesive Strips (ED) Referrals: Ramone Duque MD [Primary Care Provider, Family Practice] - 1 week Procedures ED Laceration Laceration Laceration 1: Site: face Side (if applicable): left Size (cm): 0.5 Description: linear Depth: simple, single layer Skin layer closed with: other (Dermabond, Steri-Strip)
== END 2025-05-12 12:15 | disposition home or self-care (01) ==
PROVIDERS: Emergency Provider Student in an Organized Health Care Education/Training Program; PCP Family Medicine
DX: S01.81XA Laceration without foreign body of other part of head, initial encounter (principal); S09.8XXA Other specified injuries of head, initial encounter; W01.0XXA Fall on same level from slipping, tripping and stumbling without subsequent striking against object, initial encounter; Z23 Encounter for immunization
CPT/HCPCS: 12011; 90471; 90715; 99284